=== PATIENT | female | born 1955 | race Caucasian/White ===

== ENCOUNTER 2016-08-08 16:11 | Emergency (ER) | payer MEDICAID ==
[~2016-08-08] VITALS: Ht 165.1 cm; Wt 125.0 kg
[~2016-08-08 16:11] MED LIST: ADVAI500I PO; ALBU8I INH; CEPH500C3 PO; CLAR10TA7 PO; DUONI NEB; HYDR12.56 PO; METO50TA PO; MONT4CHW2 CHEW; OXYB5TAB PO
[2016-08-08 16:13] VITALS: BP 147/89; PULSE 92; RESP 16; TEMP 99.2; O2SAT 94
[2016-08-08] MEDS ORDERED: SODIUM CHLOR 0.9% 1000 ML INJ 1,000 ML IV SCH (16:39)
--- NOTE | 2016-08-08 16:41 | PD ---
HPI Chief Complaint: Cold / Flu Symptoms Time Seen by Provider: 16:41 Travel History International Travel<30 days: No Contact w/Intl Traveler<30days: No Traveled to known affect area: No History of Present Illness HPI Patient is a 61-year-old female with a history of COPD from secondhand smoke who is a never smoker presenting with chief complaint of cough and ENT symptoms. Present for 36 hours. She states that he's had nasal congestion, sinus pressure, frontal headache, myalgias, sore throat and cough. Cough is nonproductive. She has had intermittent wheezing and has used inhalers which have helped. He denies any chest pain or pleuritic pain. She denies any pain or swelling in her legs. She states yesterday she had a fever of 103.6 F. Has responded to antipyretics. She states that she was urinating frequently as she was drinking a lot of fluid and so she purposely has received her fluids for the last 24 hours and has since developed dysuria or urinary frequency. Denies any hematuria, pyuria or vaginal bleeding or discharge. Denies abdominal, pelvic, back or flank pain. She denies nausea, vomiting and diarrhea. She did not receive influenza vaccine this year. PFSH Past Medical History Anemia: Yes (CHRONIC) Arthritis: Yes Asthma: Yes Autoimmune Disease: Yes (ARTHRITIS) Heart Rhythm Problems: No Cancer: Yes (doesn't remember what kind) Cardiovascular Problems: Yes (HTN) High Cholesterol: No Chest Pain: No Congestive Heart Failure: No COPD: Yes Cerebrovascular Accident: No Diminished Hearing: No Gastrointestinal Disorders: Yes GERD: No Genitourinary: Yes (PROLAPSED BLADDER) Headaches: Yes Hepatitis: No Hiatal Hernia: No Hypertension: Yes Neurologic: No Reproductive: Yes Respiratory: Yes (COPD) Immunizations Current: Yes Migraines: Yes Myocardial Infarction: No Seizures: No Sleep Apnea: No Ulcer: No ?: Not LMP: MENOPAUSAL Menopausal: Yes : 5 Para: 4 Miscarriage: 1 Ovarian Cysts: Yes Tubal Ligation: Yes (TUBAL LIGATION FOLLOWED BY REVERSAL) Past Surgical History Abdominal Surgery: Yes (LAPROSCOPY) AICD: No Ear Surgery: No Eye Surgery: No Gynecologic Surgery: Yes Oral Surgery: No Pacemaker: No Tonsillectomy: Yes (AND ADENOIDS) Other Surgery: Yes (NASAL) Social History Alcohol Use: No Tobacco Use: No Substance Use: No Allergies-Medications (Allergen,Severity, Reaction): Coded Allergies: [place] Tree (Verified Allergy, Severe, SOB, 08/08/16) Tetanus Toxoid (Verified Allergy, Severe, ANAPHYLAXIS, 08/08/16) Uncoded Allergies: OAT POLLEN (Allergy, Severe, SOB, 09/24/13) Reported Meds & Prescriptions Reported Meds & Active Scripts Active Proair Hfa 8.5 GM Inh (Albuterol Sulfate) 90 Mcg/Act Aer 2 Puff INH Q4-6H PRN 108 mcg/actuation Prednisone 20 Mg Tab 40 Mg PO DAILY 5 Days Tamiflu (Oseltamivir Phosphate) 75 Mg Cap 75 Mg PO BID 5 Days Cipro (Ciprofloxacin HCl) 500 Mg Tab 500 Mg PO BID Reported Lidocaine Patch 12 HR (Lidocaine) 5 % Patch 1 Patch TOPICAL DAILY Remove patch after 12 hours Imitrex (Sumatriptan Succinate) 25 Mg Tab 25 Mg PO ONCE PRN If a satisfactory response has not been obtained at 2 hours, a second dose may be administered Albuterol Neb (Albuterol Sulfate) 0.63 Mg/3 Ml Neb 0.63 Mg NEB Q4HR NEB PRN Advair Diskus Inh (Fluticasone-Salmeterol Inh) 100-50 Mcg/Blist Aer 1 Puff INH BID Rinse mouth after use. Proventil Hfa 6.7 GM Inh (Albuterol Sulfate) 90 Mcg/Act Aer 2 Puff INH Q4-6H PRN Meloxicam 7.5 Mg Tab 7.5 Mg PO DAILY Metoprolol Tartrate 25 Mg Tab 25 Mg PO BID Ditropan (Oxybutynin Chloride) 5 Mg Tab 5 Mg PO Q8HR Lortab (Hydrocodone-Acetaminophen) 10-325 Mg Tab 1 Tab PO TID PRN Review of Systems Except as stated in HPI: all other systems reviewed are Neg Physical Exam Narrative GENERAL: Well-developed and well-nourished adult female in no acute distress. SKIN: Warm and dry. Slightly reduced turgor without tenting. HEAD: Normocephalic and atraumatic. EYES: PERRL bilaterally, 5mm. EOMI bilaterally. No injection or icterus present. No proptosis. Lids without edema or erythema. ENT: Bilateral ear canals are non-edematous/non-erythematous without otorrhea. Bilateral TMs have intact landmarks and without distortion, perforation, air- fluid level or erythema. Nasal mucosa erythematous and edematous with clear discharge, septum intact and midline. Buccal mucosa pink and slightly dry. Oropharynx has mild erythema of the anterior tonsillar pilars without tonsillar hypertrophy, masses, swelling, asymmetry and exudates. Uvula midline and airway patent. NECK: Supple, no meningeal signs. Trachea midline, no JVD. No cervical or facial lymphadenopathy. CARDIOVASCULAR: Regular rate and rhythm without murmurs, rubs, clicks or gallops. Radial and posterior tibial pulses 2+ bilaterally. No pedal edema. Negative bilateral Homans sign. RESPIRATORY: Mild end expiratory wheezing and decreased breath sounds diffusely. No rhonchi or rales auscultated. No distress or use of accessory muscles. No stridor, tripoding or drooling. GASTROINTESTINAL: Non-tender, non-distended. Normal bowel sounds all 4 quadrants. No masses or organomegaly present. Negative bilateral CVA tenderness. MUSCULOSKELETAL: No gait disturbances. Patient freely moving all four extremities spontaneously. Extremities without clubbing, cyanosis, or edema. No obvious deformities. NEUROLOGIC: CN II-XII grossly intact. Awake and alert. Motor grossly within normal limits. Normal speech. PSYCHIATRIC: Appropriate mood and affect; insight and judgment normal. Data Data Last Documented VS Vital Signs Date Time Temp Pulse Resp B/P Pulse Ox O2 Delivery O2 Flow Rate FiO2 08/08/16 16:35 20 94 Room Air 08/08/16 16:13 99.2 92 147/89 Orders Complete Blood Count With Diff (08/08/16 16:39) Comprehensive Metabolic Panel (08/08/16 16:39) Urinalysis - C+S If Indicated (08/08/16 16:39) Sodium Chlor 0.9% 1000 Ml Inj (Ns 1000 M (08/08/16 16:39) Group A Rapid Strep Screen (08/08/16 16:39) Influenzae A/B Antigen (08/08/16 16:39) Chest, Single Ap (08/08/16 16:39) Methylprednisolone So Succ Inj (Solumedr (08/08/16 16:45) Albuterol-Ipratropium Neb (Duoneb Neb) (08/08/16 16:45) Strep Culture (Group A) (08/08/16 16:45) Urine Culture (08/08/16 17:44) Labs Laboratory Tests Test 08/08/16 08/08/16 16:50 17:44 White Blood Count 5.1 TH/MM3 Red Blood Count 4.90 MIL/MM3 Hemoglobin 13.8 GM/DL Hematocrit 41.9 % Mean Corpuscular Volume 85.5 FL Mean Corpuscular Hemoglobin 28.1 PG Mean Corpuscular Hemoglobin 32.8 % Concent Red Cell Distribution Width 12.9 % Platelet Count 187 TH/MM3 Mean Platelet Volume 7.9 FL Neutrophils (%) (Auto) 74.6 % Lymphocytes (%) (Auto) 14.1 % Monocytes (%) (Auto) 8.2 % Eosinophils (%) (Auto) 1.5 % Basophils (%) (Auto) 1.6 % Neutrophils # (Auto) 3.8 TH/MM3 Lymphocytes # (Auto) 0.7 TH/MM3 Monocytes # (Auto) 0.4 TH/MM3 Eosinophils # (Auto) 0.1 TH/MM3 Basophils # (Auto) 0.1 TH/MM3 CBC Comment DIFF FINAL Differential Comment Sodium Level 142 MEQ/L Potassium Level 3.6 MEQ/L Chloride Level 103 MEQ/L Carbon Dioxide Level 30.9 MEQ/L Anion Gap 8 MEQ/L Blood Urea Nitrogen 9 MG/DL Creatinine 0.64 MG/DL Estimat Glomerular Filtration 94 ML/MIN Rate Random Glucose 133 MG/DL Calcium Level 8.4 MG/DL Total Bilirubin 0.7 MG/DL Aspartate Amino Transf 16 U/L (AST/SGOT) Alanine Aminotransferase 29 U/L (ALT/SGPT) Alkaline Phosphatase 115 U/L Total Protein 6.6 GM/DL Albumin 3.4 GM/DL Urine Collection Type CLEAN CATCH Urine Color YELLOW Urine Turbidity SLIGHT Urine pH 6.0 Urine Specific [place] 1.012 Urine Protein NEG mg/dL Urine Glucose (UA) NEG mg/dL Urine Ketones NEG mg/dL Urine Occult Blood SMALL Urine Nitrite POS Urine Bilirubin NEG Urine Leukocyte Esterase LARGE Urine RBC 10-14 /hpf Urine WBC 50-99 /hpf Urine Squamous Epithelial > 8 /hpf Cells Urine Bacteria MANY /hpf Microscopic Urinalysis Comment CULTURE INDICATED Urine Collection Time 17:44 MDM Medical Decision Making Medical Screen Exam Complete: Yes Emergency Medical Condition: Yes Interpretation(s) Laboratory Tests Test 08/08/16 08/08/16 16:50 17:44 White Blood Count 5.1 TH/MM3 (4.0-11.0) Red Blood Count 4.90 MIL/MM3 (4.00-5.30) Hemoglobin 13.8 GM/DL (11.6-15.3) Hematocrit 41.9 % (35.0-46.0) Mean Corpuscular Volume 85.5 FL (80.0-100.0) Mean Corpuscular Hemoglobin 28.1 PG (27.0-34.0) Mean Corpuscular Hemoglobin 32.8 % Concent (32.0-36.0) Red Cell Distribution Width 12.9 % (11.6-17.2) Platelet Count 187 TH/MM3 (150-450) Mean Platelet Volume 7.9 FL (7.0-11.0) Neutrophils (%) (Auto) 74.6 % (16.0-70.0) Lymphocytes (%) (Auto) 14.1 % (9.0-44.0) Monocytes (%) (Auto) 8.2 % (0.0-8.0) Eosinophils (%) (Auto) 1.5 % (0.0-4.0) Basophils (%) (Auto) 1.6 % (0.0-2.0) Neutrophils # (Auto) 3.8 TH/MM3 (1.8-7.7) Lymphocytes # (Auto) 0.7 TH/MM3 (1.0-4.8) Monocytes # (Auto) 0.4 TH/MM3 (0-0.9) Eosinophils # (Auto) 0.1 TH/MM3 (0-0.4) Basophils # (Auto) 0.1 TH/MM3 (0-0.2) CBC Comment DIFF FINAL Differential Comment Sodium Level 142 MEQ/L (136-145) Potassium Level 3.6 MEQ/L (3.5-5.1) Chloride Level 103 MEQ/L (98-107) Carbon Dioxide Level 30.9 MEQ/L (21.0-32.0) Anion Gap 8 MEQ/L (5-15) Blood Urea Nitrogen 9 MG/DL (7-18) Creatinine 0.64 MG/DL (0.50-1.00) Estimat Glomerular Filtration 94 ML/MIN (>89) Rate Random Glucose 133 MG/DL (74-106) Calcium Level 8.4 MG/DL (8.5-10.1) Total Bilirubin 0.7 MG/DL (0.2-1.0) Aspartate Amino Transf 16 U/L (15-37) (AST/SGOT) Alanine Aminotransferase 29 U/L (10-53) (ALT/SGPT) Alkaline Phosphatase 115 U/L (45-117) Total Protein 6.6 GM/DL (6.4-8.2) Albumin 3.4 GM/DL (3.4-5.0) Urine Collection Type CLEAN CATCH Urine Color YELLOW (YELLW/STRAW) Urine Turbidity SLIGHT (CLEAR) Urine pH 6.0 (5.0-8.5) Urine Specific [place] 1.012 (1.002-1.035) Urine Protein NEG mg/dL (NEG-TRACE) Urine Glucose (UA) NEG mg/dL (NEG) Urine Ketones NEG mg/dL (NEG) Urine Occult Blood SMALL (NEG) Urine Nitrite POS (NEG) Urine Bilirubin NEG (NEG) Urine Leukocyte Esterase LARGE (NEG) Urine RBC 10-14 /hpf (0-3) Urine WBC 50-99 /hpf (0-5) Urine Squamous Epithelial > 8 /hpf (0-5) Cells Urine Bacteria MANY /hpf (NONE) Microscopic Urinalysis Comment CULTURE INDICATED Urine Collection Time 17:44 Last 24 hours Impressions Chest X-Ray 08/08/16 1639 Signed Impressions: Service Date/Time: Monday, August 08, 2016 17:10 - CONCLUSION: 1. No acute findings. Minimal basilar dependent atelectasis in the lungs. Bong Atkins MD Differential Diagnosis Influenza versus COPD exacerbation versus pneumonia versus bronchitis versus cystitis versus pyelonephritis Narrative Course Patient is a 59-year-old female with a history of COPD from secondhand smoke presenting with ENT/URI symptoms for approximately 36 hours. She has some slight wheezing and decreased breath sounds on exam. No rales auscultated. No increased work of breathing. She is currently afebrile and nontoxic appearing however does appear slightly volume depleted. She reports some urinary symptoms as well. No signs of pyelonephritis. Patient given 1 L normal saline bolus, Solu-Medrol and DuoNeb's. Ordered labs including urinalysis and chest x- ray. Rapid strep and flu negative. Chest x-ray shows minimal nasal or atelectasis, no acute cardio pulmonary process. CBC shows WBC of 5.1, mild neutrophilia without bands. Metabolic panel shows glucose 133, calcium 8.4. UA suggestive of cystitis given symptoms, shows positive for nitrites and leukocyte esterase, 10-14 rbc's. 50-99 WBCs, many bacteria. There are greater than 8 squamous epithelial cells. Treat with Cipro. Given other people in the household has tested positive for influenza A the patient did not receive vaccine will provide Tamiflu today as well as prednisone and albuterol inhaler for COPD exacerbation.See discharge paperwork for further instructions. The plan was discussed with the patient who acknowledged their understanding and agreement. Reinforced the follow-up with primary care is critically important. Patient instructed on emergent conditions that should prompt return to ED. Diagnosis Primary Impression: Viral syndrome Additional Impressions: COPD exacerbation Cystitis Hyperglycemia Patient Instructions: General Instructions, Hyperglycemia, Non-Diabetic (ED), Urinary Tract Infection in Women (ED), Viral Syndrome (ED) Additional Instructions: Take medication as prescribed OTC Mucinex, cough suppressants, and decongestants as needed OTC Tylenol or Ibuprofen for fever and discomfort Take medication as prescribed Drink plenty of fluids to stay hydrated and flush urinary system Call for culture results and follow up with PCP in 48 hours Return to the ED for any acute worsening of symptoms including fever, nausea, vomiting and abdominal pain Med/Other Pt SpecificInfo: Prescription(s) given Scripts Albuterol 8.5 GM Inh (Proair Hfa 8.5 GM Inh)90 Mcg/Act Aer2 Puff INH Q4-6H PRN ( SHORTNESS OF BREATH) #1 INHALER 108 mcg/actuation Prov:Rob Zepeda MD 08/08/16 Prednisone 20 Mg Tab40 Mg PO DAILY 5 Days Prov:Rob Zepeda MD 08/08/16 Oseltamivir (Tamiflu)75 Mg Cap75 Mg PO BID 5 Days Prov:Rob Zepeda MD 08/08/16 Ciprofloxacin (Cipro)500 Mg [id number] Mg PO BID #20 TAB Prov:Rob Zepeda MD 08/08/16 Disposition: 01 DISCHARGE HOME Condition: Stable Oswaldo Garcia III Aug 08, 2016 16:41
[2016-08-08] MEDS ORDERED: OXYB5TAB10 PO (16:44)
[2016-08-08] MEDS ORDERED: MELO7.5T4 PO (16:44)
[2016-08-08] MEDS ORDERED: ALBU0.63 NEB (16:44)
[2016-08-08] MEDS ORDERED: METO25TA3 PO (16:44)
[2016-08-08] MEDS ORDERED: ADVA100A INH (16:44)
[2016-08-08] MEDS ORDERED: LIDO1PAD52 TOPICAL (16:44)
[2016-08-08] MEDS ORDERED: ALBU6.7H INH (16:44)
[2016-08-08] MEDS ORDERED: IMIT25TA PO (16:44)
[2016-08-08] MEDS ORDERED: HYDR-3535 PO (16:44)
[2016-08-08] MEDS ORDERED: methylPREDNISolone SOD SUCC 125 MG/2 ML VIAL IVP ONE (16:45)
[2016-08-08 17:08] LABS: AUTOMATED NEUTROPHIL # 3.8 TH/MM3 (1.8-7.7); BASOPHIL # 0.1 TH/MM3 (0-0.2); BASOPHIL % 1.6 % (0.0-2.0); EOSINOPHIL # 0.1 TH/MM3 (0-0.4); EOSINOPHIL % 1.5 % (0.0-4.0); HEMATOCRIT 41.9 % (35.0-46.0); HEMO FLAGS DIFF FINAL; LYMPH % 14.1 % (9.0-44.0); LYMPHOCYTE # 0.7 TH/MM3 (1.0-4.8); MEAN CELL VOLUME 85.5 FL (80.0-100.0); MEAN CORPUSCULAR HEMOGLOBIN 28.1 PG (27.0-34.0); MEAN CORPUSCULAR HGB CONC 32.8 % (32.0-36.0); MONO % 8.2 % (0.0-8.0); NEUT % 74.6 % (16.0-70.0); PLATELET COUNT 187 TH/MM3 (150-450); RED CELL DISTRIBUTION WIDTH 12.9 % (11.6-17.2); WHITE BLOOD COUNT 5.1 TH/MM3 (4.0-11.0)
[2016-08-08 17:16] LABS: CHLORIDE 103 MEQ/L (98-107); POTASSIUM 3.6 MEQ/L (3.5-5.1); SODIUM (NA) 142 MEQ/L (136-145)
[2016-08-08] MEDS: RESP: ALBUTEROL 2.5 MG/IPRATROPIUM 0.5 MG NEB (SCH) INH (17:16)
[2016-08-08 17:20] LABS: ANION GAP 8 MEQ/L (5-15); BICARBONATE 30.9 MEQ/L (21.0-32.0); BLOOD UREA NITROGEN 9 MG/DL (7-18)
[2016-08-08 17:23] LABS: ALT (GPT) 29 U/L (10-53); AST (GOT) 16 U/L (15-37); GLOMERULAR FILTRATION RATE 94 ML/MIN (>89)
[2016-08-08 17:24] LABS: TOTAL BILIRUBIN ADULT 0.7 MG/DL (0.2-1.0)
[2016-08-08 17:26] LABS: ALKALINE PHOSPHATASE 115 U/L (45-117)
--- NOTE | 2016-08-08 17:49 | RADHPO ---
EXAM DATE/TIME: 08/08/2016 17:10 [facility] COMPARISON: CHEST SINGLE AP, October 20, 2014, 21:43. INDICATIONS : Cough and congestion for two days. MEDICAL HISTORY : Hypertension. Chronic obstructive pulmonary disease. SURGICAL HISTORY : None. ENCOUNTER: Initial ACUITY: 2 days PAIN SCORE: 2/10 LOCATION: Bilateral chest FINDINGS: A single view of the chest demonstrates the lungs to be symmetrically aerated without evidence of mas s, infiltrate or effusion. The cardiomediastinal contours are unremarkable. Osseous structures are intact. CONCLUSION: 1. No acute findings. Minimal basilar dependent atelectasis in the lungs. Bong Atkins MD on August 08, 2016 at 17:46 Board Certified Radiologist. This report was verified electronically.
[2016-08-08 17:56] LABS: BLOOD, URINE SMALL (NEG); GLUCOSE,URINE NEG (NEG); KETONE, URINE NEG (NEG)
[2016-08-08 17:58] LABS: NITRITE,URINE POS (NEG)
[2016-08-08 18:03] LABS: BACTERIA, URINE MANY /hpf; COMMENT (UR) CULTURE INDICATED; CULTURE IF INDICATED CULTURE INDICATED; METHOD OF COLLECTION CLEAN CATCH; SQUAMOUS EPITHELIAL CELL URINE > 8 /hpf (0-5); URINE COLOR YELLOW (YELLW/STRAW)
[2016-08-08] MEDS ORDERED: PRED20 PO (18:14)
[2016-08-08] MEDS ORDERED: CIPR-9 PO (18:14)
[2016-08-08] MEDS ORDERED: ALBUAER3 INH (18:14)
[2016-08-08] MEDS ORDERED: OSEL75 PO (18:14)
== END 2016-08-08 18:45 | disposition home or self-care (01) ==
LOC: PHEFT 16:11
DX: B34.9 Viral infection, unspecified (principal); J44.1 Chronic obstructive pulmonary disease with (acute) exacerbation; N30.91 Cystitis, unspecified with hematuria; R73.9 Hyperglycemia, unspecified; B96.20 Unspecified Escherichia coli [E. coli] as the cause of diseases classified elsewhere; M79.1 Myalgia; R50.9 Fever, unspecified; I10 Essential (primary) hypertension; Z86.2 Personal history of diseases of the blood and blood-forming organs and certain disorders involving the immune mechanism; Z87.39 Personal history of other diseases of the musculoskeletal system and connective tissue; Z87.09 Personal history of other diseases of the respiratory system; Z87.19 Personal history of other diseases of the digestive system; Z87.448 Personal history of other diseases of urinary system; Z86.69 Personal history of other diseases of the nervous system and sense organs
CPT/HCPCS: 71010; 80053; 81001; 85025; 87077; 87081; 87086; 87186; 87804; 87880; 94664; 96361; 96374; 99283; J2930; J7030

== ENCOUNTER 2016-09-21 22:43 | Emergency (ER) | payer MEDICAID ==
[~2016-09-21] VITALS: Ht 162.6 cm; Wt 124.0 kg
[~2016-09-21 22:43] MED LIST changes: +ADVA100A INH; -ADVAI500I PO; +ALBU0.63 NEB; +ALBU6.7H INH; -ALBU8I INH; +ALBUAER3 INH; -CEPH500C3 PO; +CIPR-9 PO; -CLAR10TA7 PO; -DUONI NEB; +HYDR-3535 PO; -HYDR12.56 PO; +IMIT25TA PO; +LIDO1PAD52 TOPICAL; +MELO7.5T4 PO; +METO25TA3 PO; -METO50TA PO; -MONT4CHW2 CHEW; +OSEL75 PO; -OXYB5TAB PO; +OXYB5TAB10 PO; +PRED20 PO
[2016-09-21 23:09] VITALS: BP 169/95; PULSE 88; RESP 20; TEMP 98.2; O2SAT 95
[2016-09-21 23:57] LABS: BLOOD, URINE NEG (NEG); GLUCOSE,URINE NEG (NEG); KETONE, URINE NEG (NEG)
[2016-09-22 00:02] LABS: MUCUS URINE MOD /lpf (OCC); NITRITE,URINE POS (NEG); URINE COLOR YELLOW (YELLW/STRAW)
[2016-09-22 00:03] LABS: BACTERIA, URINE MANY /hpf
[2016-09-22 00:04] LABS: COMMENT (UR) CULTURE INDICATED; CULTURE IF INDICATED CULTURE INDICATED
[2016-09-22 00:57] VITALS: BP 169/95; PULSE 88; RESP 20; TEMP 98.2; O2SAT 95
[2016-09-22] MEDS ORDERED: RESP: ALBUTEROL 2.5 MG/IPRATROPIUM 0.5 MG NEB (SCH) NEB ONE (02:00)
[2016-09-22 02:01] VITALS: BP 175/87; PULSE 86; RESP 18; O2SAT 95
[2016-09-22 02:59] VITALS: BP 157/69; PULSE 85; RESP 18; O2SAT 95
--- NOTE | 2016-09-22 03:13 | RADHPO ---
EXAM DATE/TIME: 09/22/2016 02:08 [facility] COMPARISON: No previous studies available for comparison. INDICATIONS : Short of breath. MEDICAL HISTORY : Hypertension. Chronic obstructive pulmonary disease. SURGICAL HISTORY : None. ENCOUNTER: Initial ACUITY: 3 days PAIN SCORE: 4/10 LOCATION: Bilateral upper chest FINDINGS: A single view of the chest demonstrates the lungs to be symmetrically aerated without evidence of mas s, infiltrate or effusion. The cardiomediastinal contours are unremarkable. Osseous structures are intact. CONCLUSION: 1. Mild basilar atelectasis. No effusion or pneumothorax. Bong Atkins MD on September 22, 2016 at 3:07 Board Certified Radiologist. This report was verified electronically.
[2016-09-22] MEDS ORDERED: ADVA500A INH (03:22)
[2016-09-22] MEDS ORDERED: LORA-361 PO ×2 (03:22→03:47)
[2016-09-22] MEDS ORDERED: ALBUAER3 INH (03:22)
[2016-09-22] MEDS ORDERED: BACT800T5 PO (03:22)
[2016-09-22] MEDS ORDERED: PHEN0.4T PO (03:22)
--- NOTE | 2016-09-22 03:23 | PD ---
HPI Chief Complaint: Respiratory Symptoms Time Seen by Provider: 01:51 Travel History International Travel<30 days: No Contact w/Intl Traveler<30days: No Traveled to known affect area: No History of Present Illness HPI 61 year-old female presents to the emergency department for complaint of urinary symptoms with dysuria frequency urgency without flank pain or hematuria and exacerbation of her COPD and medication refill. Patient reports that 2 or 3 days ago she had a fever but none today. Patient denies chills. No sore throat no headache no sinus pressure drainage reportedly. No chest pain. Patient has had shortness of breath. Patient has been out of her Advair. Patient states she has not been able to get into her primary care provider's office. Patient reports that she has had no pleuritic pain. No abdominal pain. Patient has noted dysuria frequency and urgency. Patient is also noted history of recurrent urinary tract infections and was recently seen in July for urinary tract infection but did not have follow-up with her primary. Patient also has had cough that intimately has been productive of green sputum. Patient denies diarrhea. No joint pain or swelling. No orthopnea or PND. PFSH Past Medical History Narrative Medical Anemia arthritis asthma/COPD recurrent urinary tract infections bladder prolapse hypertension migraines ovarian cyst tubal ligation; tonsillectomy adenoidectomy sinus surgery and laparoscopy; no tobacco use; nursing notes reviewed Anemia: Yes (Chronic) Arthritis: Yes (OA) Asthma: Yes Autoimmune Disease: Yes (ARTHRITIS) Heart Rhythm Problems: No Cancer: Yes Cardiovascular Problems: Yes High Cholesterol: No Chest Pain: No Congestive Heart Failure: No COPD: Yes Cerebrovascular Accident: No Diminished Hearing: No Gastrointestinal Disorders: Yes GERD: No Genitourinary: Yes (Bladder prolapse ) Headaches: Yes Hepatitis: No Hiatal Hernia: No Hypertension: Yes Neurologic: No Reproductive: Yes Respiratory: Yes Immunizations Current: Yes Migraines: Yes Myocardial Infarction: No Seizures: No Sleep Apnea: No Ulcer: No Tetanus Vaccination: Unknown Influenza Vaccination: Yes ?: Not Menopausal: Yes : 5 Para: 4 Miscarriage: 1 Ovarian Cysts: Yes Tubal Ligation: Yes (w/ reversal ) Past Surgical History Abdominal Surgery: Yes (Laproscopy ) AICD: No Ear Surgery: No Eye Surgery: No Gynecologic Surgery: Yes Oral Surgery: No Pacemaker: No Tonsillectomy: Yes (& adenoids) Other Surgery: Yes (Nose, sinus) Social History Alcohol Use: No Tobacco Use: No Substance Use: No Allergies-Medications (Allergen,Severity, Reaction): Coded Allergies: [place] Tree (Verified Allergy, Severe, SOB, 09/22/16) Tetanus Toxoid (Verified Allergy, Severe, ANAPHYLAXIS, 09/22/16) Uncoded Allergies: OAT POLLEN (Allergy, Severe, SOB, 09/24/13) Reported Meds & Prescriptions Reported Meds & Active Scripts Active Claritin (Loratadine) 10 Mg Tab 10 Mg PO DAILY Proair Hfa 8.5 GM Inh (Albuterol Sulfate) 90 Mcg/Act Aer 2 Puff INH Q4-6H PRN 108 mcg/actuation Pyridium (Phenazopyridine HCl) 100 Mg Tab 100 Mg PO Q8H PRN Bactrim DS (Sulfamethoxazole-Trimethoprim) 800-160 Mg Tab 1 Tab PO BID Advair Diskus Inh (Fluticasone-Salmeterol Inh) 500-50 Mcg/Blist Aer 1 Puff INH BID Rinse mouth after use. Reported Lidocaine Patch 12 HR (Lidocaine) 5 % Patch 1 Patch TOPICAL DAILY Remove patch after 12 hours Imitrex (Sumatriptan Succinate) 25 Mg Tab 25 Mg PO ONCE PRN If a satisfactory response has not been obtained at 2 hours, a second dose may be administered Albuterol Neb (Albuterol Sulfate) 0.63 Mg/3 Ml Neb 0.63 Mg NEB Q4HR NEB PRN Advair Diskus Inh (Fluticasone-Salmeterol Inh) 100-50 Mcg/Blist Aer 1 Puff INH BID Rinse mouth after use. Proventil Hfa 6.7 GM Inh (Albuterol Sulfate) 90 Mcg/Act Aer 2 Puff INH Q4-6H PRN Meloxicam 7.5 Mg Tab 7.5 Mg PO DAILY Metoprolol Tartrate 25 Mg Tab 25 Mg PO BID Ditropan (Oxybutynin Chloride) 5 Mg Tab 5 Mg PO Q8HR Lortab (Hydrocodone-Acetaminophen) 10-325 Mg Tab 1 Tab PO TID PRN Review of Systems Except as stated in HPI: all other systems reviewed are Neg Physical Exam Narrative GENERAL: Well-developed well-nourished female in no acute distress no respiratory distress SKIN: Warm and dry. HEAD: Normocephalic. EYES: No scleral icterus. No injection or drainage. NECK: Supple, trachea midline. No JVD or lymphadenopathy. CARDIOVASCULAR: Regular rate and rhythm without murmurs, gallops, or rubs. RESPIRATORY: Breath sounds equal bilaterally diminished few x-ray wheezes. No accessory muscle use. GASTROINTESTINAL: Abdomen soft, non-tender, nondistended. MUSCULOSKELETAL: No cyanosis, or edema. BACK: Nontender without obvious deformity. No CVA tenderness. Data Data Last Documented VS Vital Signs Date Time Temp Pulse Resp B/P Pulse Ox O2 Delivery O2 Flow Rate FiO2 09/22/16 02:59 85 18 95 Room Air 09/22/16 02:59 157/69 09/22/16 00:57 98.2 Orders Urinalysis - C+S If Indicated (09/21/16 23:44) Urine Culture (09/21/16 23:45) Chest, Single Ap (09/22/16 ) Albuterol-Ipratropium Neb (Duoneb Neb) (09/22/16 02:00) Sulfamet-Trimeth Ds 800-160 Mg (Bactrim (09/22/16 03:30) Labs Laboratory Tests Test 09/21/16 23:45 Urine Color YELLOW Urine Turbidity MOD Urine pH 6.0 Urine Specific [place] 1.016 Urine Protein TRACE mg/dL Urine Glucose (UA) NEG mg/dL Urine Ketones NEG mg/dL Urine Occult Blood NEG Urine Nitrite POS Urine Bilirubin NEG Urine Leukocyte Esterase MOD Urine RBC 4-9 /hpf Urine WBC 50-99 /hpf Urine Squamous Epithelial 6-8 /hpf Cells Urine Bacteria MANY /hpf Urine Mucus MOD /lpf Microscopic Urinalysis Comment CULTURE INDICATED MDM Medical Decision Making Medical Screen Exam Complete: Yes Emergency Medical Condition: Yes Medical Record Reviewed: Yes Interpretation(s) Urinalysis: Positive nitrites positive leukocyte Estrace positive white blood cells positive bacteria; culture indicated Last Impressions Chest X-Ray 09/22/16 0000 Signed Impressions: Service Date/Time: Thursday, September 22, 2016 02:08 - CONCLUSION: 1. Mild basilar atelectasis. No effusion or pneumothorax. Bong Atkins MD Differential Diagnosis Exacerbation COPD, CHF, pneumonia, ACS, UTI, pyelonephritis, medication refill Narrative Course Patient was here x-ray wheezes and diminished breath sounds out of her medication for history of COPD; patient given updraft treatment with DuoNeb and chest x-ray obtained also specimen collected for urine Urinalysis clearly abnormal and first dose of antibiotic administered in the emergency department Patient clinically improved after DuoNeb updraft Chest x-ray shows no lobar infiltrate Patient is stable for outpatient management and follow-up with her primary care provider; medications provided Diagnosis Primary Impression: COPD exacerbation Additional Impressions: UTI (urinary tract infection) Medication refill Referrals: Primary Care Physician call for appointment Patient Instructions: General Instructions Additional Instructions: Increase fluid hydration Take medications as prescribed Complete course of antibiotic Take acetaminophen/Tylenol as needed for fever 100.4F or greater per package directions Follow-up with your primary care provider; call your primary provider's office in a.m. to schedule appointment Return to the emergency department for any concerns or change in condition Med/Other Pt SpecificInfo: Prescription(s) given Scripts Loratadine (Claritin)10 Mg Tab10 Mg PO DAILY #30 TAB Ref 0 Prov:Lashae Ramos MD 09/22/16 Albuterol 8.5 GM Inh (Proair Hfa 8.5 GM Inh)90 Mcg/Act Aer2 Puff INH Q4-6H PRN ( SHORTNESS OF BREATH) #1 INHALER Ref 0 108 mcg/actuation Prov:Lashae Ramos MD 09/22/16 Phenazopyridine (Pyridium)100 Mg Hia060 Mg PO Q8H PRN (DYSURIA) #6 TAB Ref 0 Prov:Lashae Ramos MD 09/22/16 Sulfamethoxazole-Trimethoprim (Bactrim DS)800-160 Mg Tab1 Tab PO BID #20 TAB Ref 0 Prov:Lashae Ramos MD 09/22/16 Fluticasone-Salmeterol Inh (Advair Diskus Inh)500-50 Mcg/Blist Aer1 Puff INH BID #1 INHALER Ref 0 Rinse mouth after use. Prov:Lashae Ramos MD 09/22/16 Disposition: 01 DISCHARGE HOME Condition: Stable Lashae Ramos MD Sep 22, 2016 03:23
[2016-09-22] MEDS ORDERED: SULFAMETHOXAZOLE-TRIMETHOPRIM DS 800-160 MG TAB PO ONE (03:30)
== END 2016-09-22 04:07 | disposition home or self-care (01) ==
LOC: PHED 22:43
DX: J44.1 Chronic obstructive pulmonary disease with (acute) exacerbation (principal); N39.0 Urinary tract infection, site not specified; B96.20 Unspecified Escherichia coli [E. coli] as the cause of diseases classified elsewhere; I10 Essential (primary) hypertension; J45.909 Unspecified asthma, uncomplicated
CPT/HCPCS: 71010; 81001; 87077; 87086; 87186; 94664; 99283

== ENCOUNTER 2017-01-15 18:07 | Emergency (ER) | payer MEDICAID ==
[~2017-01-15 18:07] MED LIST changes: +ADVA500A INH; +BACT800T5 PO; -CIPR-9 PO; +LORA-361 PO; -OSEL75 PO; +PHEN0.4T PO; -PRED20 PO
[2017-01-15] MEDS ORDERED: CLAR10CA3 PO ×2 (18:38→19:10)
[2017-01-15] MEDS ORDERED: HYDR25TA5 PO (18:39)
--- NOTE | 2017-01-15 19:00 | PD ---
HPI Chief Complaint: ENT Complaint Time Seen by Provider: 18:26 Travel History International Travel<30 days: No Contact w/Intl Traveler<30days: No Traveled to known affect area: No History of Present Illness HPI 61 year-old woman presents to the emergency department complaining of some dizzy feeling some fullness in the left ear and some postnasal drip and congestion. She's been coughing a little bit. She also sore in her left foot. Sore the left foot started about 2 days ago and has had some spreading erythema and redness around it. History Past Medical History Narrative Medical Hypertension COPD asthma Possible history diabetes, been told her blood sugars high in the past but no formal diagnosis Tetanus Vaccination: > 5 Years Influenza Vaccination: No Menopausal: Yes : 5 Para: 4 Social History Alcohol Use: No Tobacco Use: No Allergies-Medications (Allergen,Severity, Reaction): Coded Allergies: [place] Tree (Verified Allergy, Severe, SOB, 09/22/16) Tetanus Toxoid (Verified Allergy, Severe, ANAPHYLAXIS, 09/22/16) Uncoded Allergies: OAT POLLEN (Allergy, Severe, SOB, 09/24/13) Reported Meds & Prescriptions Reported Meds & Active Scripts Active Proair Hfa 8.5 GM Inh (Albuterol Sulfate) 90 Mcg/Act Aer 2 Puff INH Q4-6H PRN 108 mcg/actuation Advair Diskus Inh (Fluticasone-Salmeterol Inh) 500-50 Mcg/Blist Aer 1 Puff INH BID Rinse mouth after use. Reported Hydrochlorothiazide 25 Mg Tab 25 Mg PO DAILY Claritin (Loratadine) 10 Mg Cap 10 Mg PO DAILY Lidocaine Patch 12 HR (Lidocaine) 5 % Patch 1 Patch TOPICAL DAILY Remove patch after 12 hours Albuterol Neb (Albuterol Sulfate) 0.63 Mg/3 Ml Neb 0.63 Mg NEB Q4HR NEB PRN Meloxicam 7.5 Mg Tab 7.5 Mg PO DAILY Metoprolol Tartrate 25 Mg Tab 25 Mg PO BID Ditropan (Oxybutynin Chloride) 5 Mg Tab 5 Mg PO Q8HR Lortab (Hydrocodone-Acetaminophen) 10-325 Mg Tab 1 Tab PO TID PRN Review of Systems Except as stated in HPI: all other systems reviewed are Neg Physical Exam Narrative GENERAL: Well-appearing 61 year-old woman, no acute distress. SKIN: Focused skin assessment warm/dry. HEAD: Atraumatic. Normocephalic. EYES: Pupils equal and round. No scleral icterus. No injection or drainage. ENT: No nasal bleeding or discharge. Mucous membranes pink and moist. Some dullness and retraction the left ear. TM Little bit of effusion. Some postnasal drip and cobblestoning in posterior oropharynx. NECK: Trachea midline. No JVD. CARDIOVASCULAR: Regular rate and rhythm. No murmur appreciated. RESPIRATORY: No accessory muscle use. Clear to auscultation. Breath sounds equal bilaterally. GASTROINTESTINAL: Abdomen soft, non-tender, nondistended. Hepatic and splenic margins not palpable. MUSCULOSKELETAL: No obvious deformities. There is a small wound on the left foot with surrounding erythema redness. MDM Medical Decision Making Medical Screen Exam Complete: Yes Emergency Medical Condition: Yes Differential Diagnosis Otitis media with effusion, sinusitis, foot infection, cellulitis, other Narrative Course 61 year-old woman here complaining of severe pain and rhinorrhea of fullness. She is here with her granddaughter is also a patient. She looks well. She does not look sick. She does have a little bit of fluid in her ear. She also has a small wound on her left foot that is minimally infected. We'll put her on some Keflex, recommend outpatient follow-up, recommend she continue her antihistamines. Diagnosis Primary Impression: Otitis media with effusion Additional Impression: Cellulitis of left foot Additional Instructions: Take antibiotics as prescribed. Continue Claritin daily. Follow-up with your primary doctor in the next 2-4 days. Med/Other Pt SpecificInfo: Prescription(s) given Scripts Loratadine (Claritin)10 Mg Cap10 Mg PO DAILY #30 CAP Ref 0 Prov:Mario Fairbanks MD 01/15/17 Disposition: 01 DISCHARGE HOME Condition: Stable Mario Fairbanks MD Jan 15, 2017 19:00
[2017-01-15] MEDS ORDERED: CEPH-460 PO (19:11)
[2017-01-15 19:24] VITALS: BP 144/86; PULSE 88; RESP 20; TEMP 98.3; O2SAT 97
== END 2017-01-15 19:44 | disposition home or self-care (01) ==
LOC: PHED 18:07
DX: H65.90 Unspecified nonsuppurative otitis media, unspecified ear (principal); L03.116 Cellulitis of left lower limb
CPT/HCPCS: 99283

== ENCOUNTER 2017-05-16 17:23 | Emergency (ER) | payer MEDICAID ==
[~2017-05-16 17:23] MED LIST changes: -ADVA100A INH; -ALBU6.7H INH; -BACT800T5 PO; +CEPH-460 PO; +CLAR10CA3 PO; +HYDR25TA5 PO; -IMIT25TA PO; -LORA-361 PO; +MELO7.5T27 PO; -MELO7.5T4 PO; -OXYB5TAB10 PO; +OXYB5TAB8 PO; -PHEN0.4T PO
[2017-05-16 17:34] VITALS: BP 194/90; PULSE 85; RESP 16; TEMP 97.5; O2SAT 96
[2017-05-16 17:49] LABS: BLOOD, URINE NEG (NEG); GLUCOSE,URINE NEG (NEG); KETONE, URINE NEG (NEG); NITRITE,URINE POS (NEG)
--- NOTE | 2017-05-16 17:51 | PD ---
HPI Chief Complaint: Complaint Time Seen by Provider: 17:40 Travel History International Travel<30 days: No Contact w/Intl Traveler<30days: No Traveled to known affect area: No History of Present Illness HPI The patient is a 62-year-old female presents to the emergency department for 2 days history of dysuria, frequency, and urgency. The patient states her symptoms started on Wednesday afternoon with mild burning upon urination. She also complains of frequency, urgency, suprapubic discomfort, small amount of blood in her urine. She also notes mild lower back pain, however, has a history of chronic back pain. She does complain of mild nausea, but denies any fever, chills, or sweats. She does have a history of UTI symptoms similar to this in the past. Symptoms are mild, possibly exacerbated by underlying UTI, there are no current alleviating factors. PFSH Past Medical History Anemia: Yes (Chronic) Arthritis: Yes (OA) Asthma: Yes Autoimmune Disease: Yes (ARTHRITIS) Heart Rhythm Problems: No Cancer: Yes Cardiovascular Problems: Yes High Cholesterol: No Chest Pain: No Congestive Heart Failure: No COPD: Yes Cerebrovascular Accident: No Diminished Hearing: No Gastrointestinal Disorders: Yes GERD: No Genitourinary: Yes (Bladder prolapse ) Headaches: Yes Hepatitis: No Hiatal Hernia: No Hypertension: Yes Neurologic: No Reproductive: Yes Respiratory: Yes Immunizations Current: Yes Migraines: Yes Myocardial Infarction: No Seizures: No Sleep Apnea: No Ulcer: No ?: Not Menopausal: Yes : 5 Para: 4 Miscarriage: 1 Ovarian Cysts: Yes Tubal Ligation: Yes (w/ reversal ) Past Surgical History Abdominal Surgery: Yes (Laproscopy ) AICD: No Ear Surgery: No Eye Surgery: No Gynecologic Surgery: Yes Oral Surgery: No Pacemaker: No Tonsillectomy: Yes (& adenoids) Other Surgery: Yes (Nose, sinus) Social History Alcohol Use: No Tobacco Use: No Substance Use: No Allergies-Medications (Allergen,Severity, Reaction): Coded Allergies: tetanus toxoid, adsorbed (Unverified Allergy, Severe, ANAPHYLAXIS, ) tree and shrub pollen (Unverified Allergy, Severe, SOB, 05/16/17) Uncoded Allergies: OAT POLLEN (Allergy, Severe, SOB, 09/24/13) Reported Meds & Prescriptions Reported Meds & Active Scripts Active Claritin (Loratadine) 10 Mg Cap 10 Mg PO DAILY Proair Hfa 8.5 GM Inh (Albuterol Sulfate) 90 Mcg/Act Aer 2 Puff INH Q4-6H PRN 108 mcg/actuation Advair Diskus Inh (Fluticasone-Salmeterol Inh) 500-50 Mcg/Blist Aer 1 Puff INH BID Rinse mouth after use. Reported Hydrochlorothiazide 25 Mg Tab 25 Mg PO DAILY Claritin (Loratadine) 10 Mg Cap 10 Mg PO DAILY Lidocaine Patch 12 HR (Lidocaine) 5 % Patch 1 Patch TOPICAL DAILY Remove patch after 12 hours Albuterol Neb (Albuterol Sulfate) 0.63 Mg/3 Ml Neb 0.63 Mg NEB Q4HR NEB PRN Meloxicam 7.5 Mg Tab 7.5 Mg PO DAILY Metoprolol Tartrate 25 Mg Tab 25 Mg PO BID Ditropan (Oxybutynin Chloride) 5 Mg Tab 5 Mg PO Q8HR Review of Systems Except as stated in HPI: all other systems reviewed are Neg General / Constitutional: No: Fever Gastrointestinal: Positive: Nausea, No: Vomiting, Abdominal Pain Genitourinary: Positive: Urgency, Frequency, Dysuria, Pelvic Pain (suprapubic discomfort) Physical Exam Narrative GENERAL: Awake, alert, pleasant 62-year-old female who appears her stated age and is in no acute respiratory distress. SKIN: Focused skin assessment warm/dry. HEAD: Atraumatic. Normocephalic. EYES: No injection or drainage. GASTROINTESTINAL: Abdomen soft, obese, mild suprapubic tenderness. Back: No CVA tenderness. MUSCULOSKELETAL: No obvious deformities. No clubbing. No cyanosis. No edema. NEUROLOGICAL: Awake and alert. No obvious cranial nerve deficits. Motor grossly within normal limits. Normal speech. PSYCHIATRIC: Appropriate mood and affect; insight and judgment normal. Data Data Last Documented VS Vital Signs Date Time Temp Pulse Resp B/P (MAP) Pulse Ox O2 Delivery O2 Flow Rate FiO2 05/16/17 17:34 97.5 85 16 194/90 (124) 96 Orders Orders Urinalysis - C+S If Indicated (05/16/17 17:40) Urine Culture (05/16/17 17:40) Labs Laboratory Tests Test 05/16/17 17:40 Urine Collection Type CLEAN CATCH Urine Color YELLOW Urine Turbidity SLIGHTY CLOUDY Urine pH 6.0 Urine Specific [place] 1.025 Urine Protein TRACE mg/dL Urine Glucose (UA) NEG mg/dL Urine Ketones NEG mg/dL Urine Occult Blood NEG Urine Nitrite POS Urine Bilirubin NEG Urine Leukocyte Esterase LARGE Urine RBC 0-3 /hpf Urine WBC 20-24 /hpf Urine Bacteria MANY /hpf Microscopic Urinalysis Comment CULTURE INDICATED MDM Medical Decision Making Medical Screen Exam Complete: Yes Emergency Medical Condition: Yes Medical Record Reviewed: Yes Interpretation(s) Laboratory Tests Test 05/16/17 17:40 Urine Collection Type CLEAN CATCH Urine Color YELLOW Urine Turbidity SLIGHTY CLOUDY Urine pH 6.0 Urine Specific [place] 1.025 Urine Protein TRACE mg/dL Urine Glucose (UA) NEG mg/dL Urine Ketones NEG mg/dL Urine Occult Blood NEG Urine Nitrite POS Urine Bilirubin NEG Urine Leukocyte Esterase LARGE Urine RBC 0-3 /hpf Urine WBC 20-24 /hpf Urine Bacteria MANY /hpf Microscopic Urinalysis Comment CULTURE INDICATED Differential Diagnosis differential diagnosis includes UTI, cystitis, hemorrhagic cystitis, pyelonephritis, yeast infection, nephrolithiasis. Narrative Course A UA was sent to lab. UA is positive for UTI with nitrites, leukocyte esterase , WBCs, and bacteria. The patient will be placed on Cipro and pirating them. She is advised to follow-up with her primary physician. Return if symptoms worsen or progress. Diagnosis Primary Impression: UTI (urinary tract infection) Qualified Codes: N30.00 - Acute cystitis without hematuria Patient Instructions: General Instructions Additional Instructions: Medications as directed. Follow-up with your primary physician. Please provide a patient a copy of her UA results at discharge. Return if symptoms worsen or progress. Med/Other Pt SpecificInfo: Prescription(s) given Scripts Phenazopyridine (Pyridium) 100 Mg Tab 100 MG PO Q8H Y for DYSURIA for 2 Days, #6 TAB 0 Refills Prov: Jermaine Hopper MD 05/16/17 Ciprofloxacin (Cipro) 500 Mg Tab 500 MG PO BID for Infection for 7 Days, #14 TAB 0 Refills Prov: Jermaine Hopper MD 05/16/17 Disposition: 01 DISCHARGE HOME Condition: Stable Jermaine Hopper MD May 16, 2017 17:51
[2017-05-16 17:55] LABS: METHOD OF COLLECTION CLEAN CATCH; URINE COLOR YELLOW (YELLW/STRAW)
[2017-05-16 17:56] LABS: BACTERIA, URINE MANY /hpf; COMMENT (UR) CULTURE INDICATED; CULTURE IF INDICATED CULTURE INDICATED; RBC, URINE 0-3 /hpf (0-3)
[2017-05-16] MEDS ORDERED: CIPR-9 PO (18:01)
[2017-05-16] MEDS ORDERED: PHEN0.4T PO (18:01)
== END 2017-05-16 18:33 | disposition home or self-care (01) ==
LOC: PHEFT 17:23
DX: N30.00 Acute cystitis without hematuria (principal); B96.20 Unspecified Escherichia coli [E. coli] as the cause of diseases classified elsewhere
CPT/HCPCS: 81001; 87077; 87086; 87186; 99284

== ENCOUNTER 2017-07-07 03:03 | Emergency (ER) | payer MEDICAID ==
[~2017-07-07] VITALS: Ht 165.1 cm; Wt 84.0 kg
[~2017-07-07 03:03] MED LIST changes: -CEPH-460 PO; +CIPR-9 PO; -HYDR-3535 PO; +PHEN0.4T PO
[2017-07-07 03:09] VITALS: BP_SYST 236; BP_SYST 243; BP_DIAS 105; BP_DIAS 116; PULSE 81; RESP 16; TEMP 98.1; O2SAT 97
[2017-07-07] MEDS ORDERED: METOPROLOL TARTRATE 50 MG TAB PO ONE (04:00)
[2017-07-07] MEDS ORDERED: PROCHLORPERAZINE INJ 10 MG/2 ML VIAL IV PUSH ONE (04:00)
[2017-07-07] MEDS ORDERED: diphenhydrAMINE HCL 50 MG/ML VIAL IV PUSH ONE (04:00)
[2017-07-07] MEDS ORDERED: KETOROLAC TROMETHAMINE 30 MG/ML (IVP) VIAL IV PUSH ONE (04:00)
[2017-07-07] MEDS ORDERED: HYDROCHLOROTHIAZIDE 12.5 MG CAP PO ONE (04:00)
[2017-07-07 04:24] LABS: AUTOMATED NEUTROPHIL # 4.3 TH/MM3 (1.8-7.7); BASOPHIL # 0.1 TH/MM3 (0-0.2); BASOPHIL % 1.1 % (0.0-2.0); EOSINOPHIL # 0.2 TH/MM3 (0-0.4); EOSINOPHIL % 2.3 % (0.0-4.0); HEMOGLOBIN 13.3 GM/DL (11.6-15.3); LYMPH % 32.6 % (9.0-44.0); LYMPHOCYTE # 2.4 TH/MM3 (1.0-4.8); MEAN CELL VOLUME 84.8 FL (80.0-100.0); MEAN CORPUSCULAR HEMOGLOBIN 28.3 PG (27.0-34.0); MEAN CORPUSCULAR HGB CONC 33.3 % (32.0-36.0); MONO % 5.9 % (0.0-8.0); MONOCYTE # 0.4 TH/MM3 (0-0.9); NEUT % 58.1 % (16.0-70.0); PLATELET COUNT 192 TH/MM3 (150-450); RED BLOOD COUNT 4.72 MIL/MM3 (4.00-5.30); RED CELL DISTRIBUTION WIDTH 13.9 % (11.6-17.2); WHITE BLOOD COUNT 7.4 TH/MM3 (4.0-11.0)
[2017-07-07 04:34] LABS: BACTERIA, URINE MOD /hpf; BILIRUBIN, URINE NEG (NEG); BLOOD, URINE NEG (NEG); GLUCOSE,URINE NEG (NEG); KETONE, URINE NEG (NEG); MUCUS URINE MOD /lpf (OCC); NITRITE,URINE POS (NEG); SQUAMOUS EPITHELIAL CELL URINE 13 /hpf (0-5); URINE COLOR YELLOW (YELLW/STRAW); URINE LEUKOCYTE ESTERASE LARGE (NEG)
[2017-07-07 04:46] LABS: ALBUMIN 3.4 GM/DL (3.4-5.0); ALT (GPT) 32 U/L (10-53); AST (GOT) 17 U/L (15-37); BICARBONATE 29.4 MEQ/L (21.0-32.0); BLOOD UREA NITROGEN 14 MG/DL (7-18); CALCIUM 8.8 MG/DL (8.5-10.1); CHLORIDE 104 MEQ/L (98-107); CREATININE 0.54 MG/DL (0.50-1.00); GLOMERULAR FILTRATION RATE 114 ML/MIN (>89); GLUCOSE,RANDOM 125 MG/DL (74-106); SODIUM (NA) 140 MEQ/L (136-145)
[2017-07-07 04:51] LABS: ALKALINE PHOSPHATASE 108 U/L (45-117); TOTAL BILIRUBIN ADULT 0.5 MG/DL (0.2-1.0); TOTAL PROTEIN 6.7 GM/DL (6.4-8.2); TROPONIN I LESS THAN 0.02 NG/ML (0.02-0.05)
[2017-07-07 05:06] VITALS: BP 144/66; PULSE 80; RESP 16; O2SAT 96
--- NOTE | 2017-07-07 05:10 | PD ---
HPI Chief Complaint: Complaint Time Seen by Provider: 03:37 Travel History International Travel<30 days: No Contact w/Intl Traveler<30days: No Traveled to known affect area: No History of Present Illness HPI Patient is a 62-year-old female who comes in complaining of headache for 3 days and frequency, urgency and dysuria for 3 days. She says she has been out of her blood pressure medication for about 3 weeks because her doctor has retired. She says that her head started hurting about 3 days ago, and she noticed her blood pressure was very high. She says she feels like she has a lot of pressure in her sinuses. She denies nausea or vomiting. She denies fever or chills. She says she has frequent UTIs, and has not had her oxybutynin. She took a Lortab without relief of her symptoms. She denies chest pain or shortness of breath. PFSH Past Medical History Anemia: Yes (Chronic) Arthritis: Yes (OA) Asthma: Yes Autoimmune Disease: Yes (ARTHRITIS) Heart Rhythm Problems: No Cancer: Yes Cardiovascular Problems: Yes (HTN) High Cholesterol: No Chest Pain: No Congestive Heart Failure: No COPD: Yes Cerebrovascular Accident: No Diminished Hearing: No Gastrointestinal Disorders: Yes GERD: No Genitourinary: Yes (Bladder prolapse ) Headaches: Yes Hepatitis: No Hiatal Hernia: No Hypertension: Yes Neurologic: No Reproductive: Yes Respiratory: Yes (COPD, Asthma) Immunizations Current: Yes Migraines: Yes Myocardial Infarction: No Seizures: No Sleep Apnea: No Ulcer: No Influenza Vaccination: No Menopausal: Yes : 5 Para: 4 Miscarriage: 1 Ovarian Cysts: Yes Tubal Ligation: Yes (w/ reversal ) Past Surgical History Abdominal Surgery: Yes (Laproscopy ) AICD: No Ear Surgery: No Eye Surgery: No Gynecologic Surgery: Yes Oral Surgery: No Pacemaker: No Tonsillectomy: Yes (& adenoids) Other Surgery: Yes (Nose, sinus) Social History Alcohol Use: No Tobacco Use: No Substance Use: No Allergies-Medications (Allergen,Severity, Reaction): Coded Allergies: tetanus toxoid, adsorbed (Unverified Allergy, Severe, ANAPHYLAXIS, ) tree and shrub pollen (Unverified Allergy, Severe, SOB, 05/16/17) Uncoded Allergies: OAT POLLEN (Allergy, Severe, SOB, 09/24/13) Reported Meds & Prescriptions Reported Meds & Active Scripts Active Pyridium (Phenazopyridine HCl) 100 Mg Tab 100 Mg PO Q8H PRN 2 Days Cipro (Ciprofloxacin HCl) 500 Mg Tab 500 Mg PO BID 7 Days Claritin (Loratadine) 10 Mg Cap 10 Mg PO DAILY Proair Hfa 8.5 GM Inh (Albuterol Sulfate) 90 Mcg/Act Aer 2 Puff INH Q4-6H PRN 108 mcg/actuation Advair Diskus Inh (Fluticasone-Salmeterol Inh) 500-50 Mcg/Blist Aer 1 Puff INH BID Rinse mouth after use. Reported Hydrochlorothiazide 25 Mg Tab 25 Mg PO DAILY Claritin (Loratadine) 10 Mg Cap 10 Mg PO DAILY Lidocaine Patch 12 HR (Lidocaine) 5 % Patch 1 Patch TOPICAL DAILY Remove patch after 12 hours Albuterol Neb (Albuterol Sulfate) 0.63 Mg/3 Ml Neb 0.63 Mg NEB Q4HR NEB PRN Meloxicam 7.5 Mg Tab 7.5 Mg PO DAILY Metoprolol Tartrate 25 Mg Tab 25 Mg PO BID Ditropan (Oxybutynin Chloride) 5 Mg Tab 5 Mg PO Q8HR Review of Systems Except as stated in HPI: all other systems reviewed are Neg General / Constitutional: No: Fever, Chills Eyes: No: Blurred Vision HENT: Positive: Headaches, No: Lightheadedness Cardiovascular: No: Chest Pain or Discomfort Respiratory: No: Shortness of Breath Gastrointestinal: No: Nausea, Vomiting Genitourinary: Positive: Dysuria Musculoskeletal: No: Myalgias, Weakness Skin: No Rash, No Change in Pigmentation Neurologic: No: Weakness, Dizziness Physical Exam Narrative GENERAL: Awake and alert, in no acute distress. SKIN: Focused skin assessment warm/dry. HEAD: Atraumatic. Normocephalic. EYES: Pupils equal and round. No scleral icterus. EOMI. ENT: Mucous membranes pink and moist. NECK: Trachea midline. No JVD. CARDIOVASCULAR: Regular rate and rhythm. No murmur appreciated. RESPIRATORY: No accessory muscle use. Clear to auscultation. Breath sounds equal bilaterally. GASTROINTESTINAL: Abdomen soft, nondistended. Suprapubic tenderness to palpation , no rebound or guarding. MUSCULOSKELETAL: No obvious deformities. No clubbing. No cyanosis. No edema. NEUROLOGICAL: Awake and alert. No obvious cranial nerve deficits. Motor grossly within normal limits. Normal speech. PSYCHIATRIC: Appropriate mood and affect; insight and judgment normal. Data Data Last Documented VS Vital Signs Date Time Temp Pulse Resp B/P (MAP) Pulse Ox O2 Delivery O2 Flow Rate FiO2 07/07/17 05:06 80 16 144/66 (92) 96 Room Air 07/07/17 03:09 98.1 Orders Orders Iv Access Insert/Monitor (07/07/17 03:59) Complete Blood Count With Diff (07/07/17 03:59) Comprehensive Metabolic Panel (07/07/17 03:59) Troponin I (07/07/17 03:59) Electrocardiogram (07/07/17 ) Urinalysis - C+S If Indicated (07/07/17 03:59) Metoprolol Tartrate (Lopressor) (07/07/17 04:00) Hydrochlorothiazide (Microzide) (07/07/17 04:00) Prochlorperazine Inj (Compazine Inj) (07/07/17 04:00) Diphenhydramine Inj (Benadryl Inj) (07/07/17 04:00) Ketorolac Inj (Toradol Inj) (07/07/17 04:00) Urine Culture (07/07/17 04:15) Labs Laboratory Tests Test 07/07/17 04:15 White Blood Count 7.4 TH/MM3 Red Blood Count 4.72 MIL/MM3 Hemoglobin 13.3 GM/DL Hematocrit 40.0 % Mean Corpuscular Volume 84.8 FL Mean Corpuscular Hemoglobin 28.3 PG Mean Corpuscular Hemoglobin Concent 33.3 % Red Cell Distribution Width 13.9 % Platelet Count 192 TH/MM3 Mean Platelet Volume 8.0 FL Neutrophils (%) (Auto) 58.1 % Lymphocytes (%) (Auto) 32.6 % Monocytes (%) (Auto) 5.9 % Eosinophils (%) (Auto) 2.3 % Basophils (%) (Auto) 1.1 % Neutrophils # (Auto) 4.3 TH/MM3 Lymphocytes # (Auto) 2.4 TH/MM3 Monocytes # (Auto) 0.4 TH/MM3 Eosinophils # (Auto) 0.2 TH/MM3 Basophils # (Auto) 0.1 TH/MM3 CBC Comment DIFF FINAL Differential Comment Urine Color YELLOW Urine Turbidity HAZY Urine pH 6.0 Urine Specific [place] 1.020 Urine Protein TRACE mg/dL Urine Glucose (UA) NEG mg/dL Urine Ketones NEG mg/dL Urine Occult Blood NEG Urine Nitrite POS Urine Bilirubin NEG Urine Urobilinogen LESS THAN 2.0 MG/DL Urine Leukocyte Esterase LARGE Urine RBC 7 /hpf Urine WBC 94 /hpf Urine Squamous Epithelial Cells 13 /hpf Urine Bacteria MOD /hpf Urine Mucus MOD /lpf Microscopic Urinalysis Comment CULTURE INDICATED Blood Urea Nitrogen 14 MG/DL Creatinine 0.54 MG/DL Random Glucose 125 MG/DL Total Protein 6.7 GM/DL Albumin 3.4 GM/DL Calcium Level 8.8 MG/DL Alkaline Phosphatase 108 U/L Aspartate Amino Transf (AST/SGOT) 17 U/L Alanine Aminotransferase (ALT/SGPT) 32 U/L Total Bilirubin 0.5 MG/DL Sodium Level 140 MEQ/L Potassium Level 3.9 MEQ/L Chloride Level 104 MEQ/L Carbon Dioxide Level 29.4 MEQ/L Anion Gap 7 MEQ/L Estimat Glomerular Filtration Rate 114 ML/MIN Troponin I LESS THAN 0.02 NG/ML [facility] Medical Decision Making Medical Screen Exam Complete: Yes Emergency Medical Condition: Yes Medical Record Reviewed: Yes Interpretation(s) ECG shows normal sinus rhythm at 75, no ST elevation or depression, normal intervals Differential Diagnosis UTI vs HTN vs tension headache vs medication refill Narrative Course Patient is a 62-year-old female who comes in complaining of headache and symptoms of a UTI. Exam shows no neurologic abnormalities. IV established, labs sent. Labs show no acute abnormalities. Urinalysis is positive for UTI. Patient was given her blood pressure medication as well as Compazine, Benadryl and Toradol for her headache. She reports resolution of her symptoms. Her blood pressure improved. She'll be discharged with prescriptions for her metoprolol, HCTZ, oxybutynin, as well as an antibiotic for her UTI. She is advised to follow-up with a primary care doctor or the [facility]. Advised to return any time for any worsening symptoms. Diagnosis Primary Impression: Medication refill Additional Impressions: UTI (urinary tract infection) Qualified Codes: N30.00 - Acute cystitis without hematuria HTN (hypertension) Qualified Codes: I10 - Essential (primary) hypertension Headache Qualified Codes: R51 - Headache Referrals: [facility] call for appointment Patient Instructions: General Instructions, Hypertension (ED), Urinary Tract Infection in Women (ED) Additional Instructions: Take all of your antibiotic. Follow-up with a primary care doctor. Return to the ED as needed for any worsening symptoms. Scripts Ciprofloxacin (Cipro) 500 Mg Tab 500 MG PO BID for Infection for 5 Days, #10 TAB 0 Refills Prov: Carole Seth MD 07/07/17 Hydrochlorothiazide (Hydrochlorothiazide) 12.5 Mg Cap 12.5 MG PO DAILY, #30 CAP 0 Refills Prov: Carole Seth MD 07/07/17 Oxybutynin (Ditropan) 5 Mg Tab 5 MG PO Q12HR for Urinary Symptom [place], #60 TAB 0 Refills Prov: Carole Seth MD 07/07/17 Metoprolol Tartrate (Metoprolol Tartrate) 25 Mg Tab 25 MG PO BID, #60 TAB 0 Refills Prov: Carole Seth MD 07/07/17 Disposition: 01 DISCHARGE HOME Condition: Stable Carole Seth MD Jul 07, 2017 05:10
[2017-07-07] MEDS ORDERED: HYDR12.57 PO (05:51)
[2017-07-07] MEDS ORDERED: METO25TA3 PO (05:51)
[2017-07-07] MEDS ORDERED: CIPR-9 PO (05:51)
[2017-07-07] MEDS ORDERED: OXYB5TAB8 PO (05:51)
--- NOTE | 2017-07-07 21:12 | EKG ---
Date Performed: 07/07/2017 Time Performed: 05:41:43 PTAGE: 62 years EKG: Sinus rhythm NORMAL ECG PREVIOUS TRACING : 10/20/2014 22.08 Compared to prior tracing no significant change DOCTOR: Salazar Hernandez Interpretating Date/Time 07/07/2017 21:12:09
== END 2017-07-07 06:07 | disposition home or self-care (01) ==
LOC: NEPC 03:03
DX: N39.0 Urinary tract infection, site not specified (principal); B96.20 Unspecified Escherichia coli [E. coli] as the cause of diseases classified elsewhere; I10 Essential (primary) hypertension; R51 Headache; Z76.0 Encounter for issue of repeat prescription
CPT/HCPCS: 80053; 81001; 84484; 85025; 87077; 87086; 87186; 93005; 96374; 96375; 99284; J0780; J1200; J1885

== ENCOUNTER 2017-09-18 15:32 | Inpatient (IN) | payer MEDICAID ==
[2017-09-18] VITALS (8 sets, daily range): BP systolic 112–126; BP diastolic 50–85; PULSE 90–97; RESP 18–22; TEMP 98.5–99.1; O2SAT 89–97
[~2017-09-18 15:32] MED LIST changes: +HYDR12.57 PO
--- NOTE | 2017-09-18 15:58 | PD ---
HPI Chief Complaint: Respiratory Distress Time Seen by Provider: 15:43 Travel History International Travel<30 days: No Contact w/Intl Traveler<30days: No Traveled to known affect area: No History of Present Illness HPI 62yo F with PMH of COPD not yet on home O2, HTN here with c/o sob and coughing for a few days. Said fever of 103F yesterday. Feels like her right lung hurts. Denies any chest pain, n/v, abdominal pain. PFSH Past Medical History Anemia: Yes (Chronic) Arthritis: Yes (OA) Asthma: Yes Autoimmune Disease: Yes (ARTHRITIS) Heart Rhythm Problems: No Cancer: Yes Cardiovascular Problems: Yes (HTN) High Cholesterol: No Chest Pain: No Congestive Heart Failure: No COPD: Yes Cerebrovascular Accident: No Diminished Hearing: No Gastrointestinal Disorders: Yes GERD: No Genitourinary: Yes (Bladder prolapse ) Headaches: Yes Hepatitis: No Hiatal Hernia: No Hypertension: Yes Neurologic: No Reproductive: Yes Respiratory: Yes (COPD, Asthma) Immunizations Current: Yes Migraines: Yes Myocardial Infarction: No Seizures: No Sleep Apnea: No Ulcer: No ?: Not Menopausal: Yes : 5 Para: 4 Miscarriage: 1 Ovarian Cysts: Yes Tubal Ligation: Yes (w/ reversal ) Past Surgical History Abdominal Surgery: Yes (Laproscopy ) AICD: No Ear Surgery: No Eye Surgery: No Gynecologic Surgery: Yes Oral Surgery: No Pacemaker: No Tonsillectomy: Yes (& adenoids) Other Surgery: Yes (Nose, sinus) Social History Alcohol Use: No Tobacco Use: No Substance Use: No Allergies-Medications (Allergen,Severity, Reaction): Coded Allergies: tetanus toxoid, adsorbed (Unverified Allergy, Severe, ANAPHYLAXIS, ) tree and shrub pollen (Unverified Allergy, Severe, SOB, 05/16/17) Uncoded Allergies: OAT POLLEN (Allergy, Severe, SOB, 09/24/13) Reported Meds & Prescriptions Reported Meds & Active Scripts Active Ditropan (Oxybutynin Chloride) 5 Mg Tab 5 Mg PO Q12HR Proair Hfa 8.5 GM Inh (Albuterol Sulfate) 90 Mcg/Act Aer 2 Puff INH Q4-6H PRN 108 mcg/actuation Advair Diskus Inh (Fluticasone-Salmeterol Inh) 500-50 Mcg/Blist Aer 1 Puff INH BID Rinse mouth after use. Reported Hydrochlorothiazide 25 Mg Tab 25 Mg PO DAILY Claritin (Loratadine) 10 Mg Cap 10 Mg PO DAILY Lidocaine Patch 12 HR (Lidocaine) 5 % Patch 1 Patch TOPICAL DAILY Remove patch after 12 hours Albuterol Neb (Albuterol Sulfate) 0.63 Mg/3 Ml Neb 0.63 Mg NEB Q4HR NEB PRN Meloxicam 7.5 Mg Tab 7.5 Mg PO DAILY Ditropan (Oxybutynin Chloride) 5 Mg Tab 5 Mg PO Q8HR Review of Systems Except as stated in HPI: all other systems reviewed are Neg Physical Exam Narrative GENERAL: 62yo F in mild distress SKIN: Focused skin assessment warm/dry. HEAD: Atraumatic. Normocephalic. EYES: Pupils equal and round. No scleral icterus. No injection or drainage. ENT: No nasal bleeding or discharge. Mucous membranes pink and moist. NECK: Trachea midline. No JVD. CARDIOVASCULAR: Regular rate and rhythm. No murmur appreciated. RESPIRATORY: + accessory muscle use. Expiratory wheezing bilaterally. GASTROINTESTINAL: Abdomen soft, non-tender, nondistended. Hepatic and splenic margins not palpable. MUSCULOSKELETAL: No obvious deformities. No clubbing. No cyanosis. No edema. NEUROLOGICAL: Awake and alert. No obvious cranial nerve deficits. Motor grossly within normal limits. Normal speech. PSYCHIATRIC: Appropriate mood and affect; insight and judgment normal. Data Data Last Documented VS Vital Signs Date Time Temp Pulse Resp B/P (MAP) Pulse Ox O2 Delivery O2 Flow Rate FiO2 09/18/17 17:19 97 22 119/69 (86) 96 Nasal Cannula 3.00 09/18/17 16:27 98.6 Orders Orders Complete Blood Count With Diff (09/18/17 15:56) Basic Metabolic Panel (Bmp) (09/18/17 15:56) Troponin I (09/18/17 15:56) Influenzae A/B Antigen (09/18/17 15:56) Chest, Single Ap (09/18/17 15:56) Methylprednisolone So Succ Inj (Solumedr (09/18/17 16:00) Albuterol-Ipratropium Neb (Duoneb Neb) (09/18/17 16:00) Blood Culture (09/18/17 17:49) Lactic Acid Sepsis Protocol (09/18/17 17:49) Ceftriaxone Inj (Rocephin Inj) (09/18/17 18:00) Azithromycin (Zithromax) (09/18/17 18:00) Sodium Chlor 0.9% 1000 Ml Inj (Ns 1000 M (09/18/17 18:00) Labs Laboratory Tests Test 09/18/17 16:15 White Blood Count 18.3 TH/MM3 Red Blood Count 4.90 MIL/MM3 Hemoglobin 13.4 GM/DL Hematocrit 40.3 % Mean Corpuscular Volume 82.3 FL Mean Corpuscular Hemoglobin 27.4 PG Mean Corpuscular Hemoglobin Concent 33.3 % Red Cell Distribution Width 14.1 % Platelet Count 169 TH/MM3 Mean Platelet Volume 8.2 FL Neutrophils (%) (Auto) 87.3 % Lymphocytes (%) (Auto) 5.6 % Monocytes (%) (Auto) 6.7 % Eosinophils (%) (Auto) 0.0 % Basophils (%) (Auto) 0.4 % Neutrophils # (Auto) 16.0 TH/MM3 Lymphocytes # (Auto) 1.0 TH/MM3 Monocytes # (Auto) 1.2 TH/MM3 Eosinophils # (Auto) 0.0 TH/MM3 Basophils # (Auto) 0.1 TH/MM3 CBC Comment DIFF FINAL Differential Comment Blood Urea Nitrogen 13 MG/DL Creatinine 0.86 MG/DL Random Glucose 203 MG/DL Calcium Level 8.0 MG/DL Sodium Level 135 MEQ/L Potassium Level 3.6 MEQ/L Chloride Level 99 MEQ/L Carbon Dioxide Level 26.8 MEQ/L Anion Gap 9 MEQ/L Estimat Glomerular Filtration Rate 67 ML/MIN Troponin I LESS THAN 0.02 NG/ML [facility] Medical Decision Making Medical Screen Exam Complete: Yes Emergency Medical Condition: Yes Interpretation(s) EKG: NSR 87bpm. Normal axis. No ST segment elevation or depression. Differential Diagnosis COPD exacerbation vs. Pneumonia vs. URI vs. bronchitis Narrative Course 62yo F with c/o SOB, cough and fever. Pt is wheezing bilaterally and initially hypoxic in the high 80s. Pt given methylprednisolone and duonebs x3. Pt reevaluated at bedside and feels better but still wheezing bilaterally. O2 sat is 97% on 3L NC. Labs reviewed, leukocytosis at 18,300. H/H normal. Glucose elevated at 203. Troponin negative. CXR showed consolidation right upper lobe. Blood cultures and lactic added before pt covered with ceftriaxone and azithromycin. Pt has not been hospitalized for last 3 months. Pt also given NS IVF. Discussed with Dr. Phoenix and accepted to her service. Sepsis Criteria SIRS Criteria (2 or more): Heart rate over 90, RR > 20 or PaCO2 < 32, WBC > 11542, < 4000 or > 10% bands Sepsis Criteria (SIRS+source): Infect source susp/known Diagnosis Primary Impression: Pneumonia Qualified Codes: J18.1 - Lobar pneumonia, unspecified organism Admitting Information Admitting Physician Requests: Admit Mickie Scanlon DO Sep 18, 2017 15:58
[2017-09-18] MEDS ORDERED: methylPREDNISolone SOD SUCC 125 MG/2 ML VIAL IV PUSH ONE (16:00)
[2017-09-18] MEDS: RESP: ALBUTEROL 2.5 MG/IPRATROPIUM 0.5 MG NEB (SCH) INH ×4 (16:14→20:58)
[2017-09-18 16:35] LABS: BASOPHIL # 0.1 TH/MM3 (0-0.2); BASOPHIL % 0.4 % (0.0-2.0); HEMATOCRIT 40.3 % (35.0-46.0); HEMOGLOBIN 13.4 GM/DL (11.6-15.3); LYMPH % 5.6 % (9.0-44.0); MEAN CELL VOLUME 82.3 FL (80.0-100.0); MEAN CORPUSCULAR HEMOGLOBIN 27.4 PG (27.0-34.0); MEAN CORPUSCULAR HGB CONC 33.3 % (32.0-36.0); MEAN PLATELET VOLUME 8.2 FL (7.0-11.0); MONO % 6.7 % (0.0-8.0); MONOCYTE # 1.2 TH/MM3 (0-0.9); NEUT % 87.3 % (16.0-70.0); PLATELET COUNT 169 TH/MM3 (150-450); RED CELL DISTRIBUTION WIDTH 14.1 % (11.6-17.2); WHITE BLOOD COUNT 18.3 TH/MM3 (4.0-11.0)
[2017-09-18 16:39] LABS: CHLORIDE 99 MEQ/L (98-107); SODIUM (NA) 135 MEQ/L (136-145)
[2017-09-18 16:42] LABS: BICARBONATE 26.8 MEQ/L (21.0-32.0); BLOOD UREA NITROGEN 13 MG/DL (7-18); GLUCOSE,RANDOM 203 MG/DL (74-106)
[2017-09-18 16:45] LABS: CREATININE 0.86 MG/DL (0.50-1.00); GLOMERULAR FILTRATION RATE 67 ML/MIN (>89)
[2017-09-18 16:50] LABS: TROPONIN I LESS THAN 0.02 NG/ML (0.02-0.05)
--- NOTE | 2017-09-18 17:00 | RADRPT ---
EXAM DATE/TIME: 09/18/2017 16:05 [facility] COMPARISON: CHEST SINGLE AP, September 22, 2016, 2:08. INDICATIONS : Short of breath, cough, chest pain MEDICAL HISTORY : Chronic obstructive pulmonary disease. Hypertension SURGICAL HISTORY : None. ENCOUNTER: Initial ACUITY: 1 week PAIN SCORE: 10/10 LOCATION: Bilateral chest FINDINGS: Consolidation changes right upper lobe. Left lung clear. Mild cardiomegaly. The portion of the bon y skeleton visualized is unremarkable. CONCLUSION: Consolidation right upper lobe. Rip Soto MD FACR on September 18, 2017 at 16:56 Board Certified Radiologist. This report was verified electronically.
[2017-09-18] MEDS ORDERED: AZITHROMYCIN 250 MG TAB PO ONE (18:00)
[2017-09-18] MEDS ORDERED: cefTRIAXone INJ 1,000 MG in SODIUM CHLORIDE 0.9% INJ 100 ML IV ONE (18:00)
[2017-09-18] MEDS ORDERED: SODIUM CHLOR 0.9% 1000 ML INJ 1,000 ML IV ONE (18:00)
[2017-09-18] MEDS ORDERED: RESP: ALBUTEROL 2.5 MG/IPRATROPIUM 0.5 MG NEB (PRN) INH (18:15)
[2017-09-18] MEDS ORDERED: SODIUM CHLORIDE 0.9% FLUSH 10 ML FLUSH IV FLUSH PRN (18:15)
[2017-09-18] MEDS: SODIUM CHLOR 0.9% 1000 ML INJ 1,000 ML IV SCH (19:43)
[2017-09-18] MEDS: SODIUM CHLORIDE 0.9% FLUSH 10 ML FLUSH IV FLUSH SCH (21:00)
[2017-09-18] MEDS: methylPREDNISolone SOD SUCC 40 MG/1 ML VIAL IV PUSH SCH (22:26)
[2017-09-19] VITALS (7 sets, daily range): BP systolic 133–170; BP diastolic 63–95; PULSE 88–101; RESP 18–20; TEMP 97.1–98.6; O2SAT 92–98
[2017-09-19] MEDS: RESP: ALBUTEROL 2.5 MG/IPRATROPIUM 0.5 MG NEB (SCH) INH ×4 (04:06→21:40)
[2017-09-19] MEDS: SODIUM CHLOR 0.9% 1000 ML INJ 1,000 ML IV SCH ×2 (05:00→13:22)
[2017-09-19] MEDS: methylPREDNISolone SOD SUCC 40 MG/1 ML VIAL IV PUSH SCH ×3 (05:00→21:11)
[2017-09-19 07:33] LABS: AUTOMATED NEUTROPHIL # 16.9 TH/MM3 (1.8-7.7); BASOPHIL # 0.1 TH/MM3 (0-0.2); BASOPHIL % 0.4 % (0.0-2.0); EOSINOPHIL % 0.1 % (0.0-4.0); HEMATOCRIT 36.4 % (35.0-46.0); HEMOGLOBIN 12.6 GM/DL (11.6-15.3); LYMPH % 4.4 % (9.0-44.0); LYMPHOCYTE # 0.8 TH/MM3 (1.0-4.8); MEAN CELL VOLUME 83.4 FL (80.0-100.0); MEAN CORPUSCULAR HEMOGLOBIN 28.9 PG (27.0-34.0); MEAN CORPUSCULAR HGB CONC 34.6 % (32.0-36.0); MEAN PLATELET VOLUME 8.6 FL (7.0-11.0); MONO % 0.9 % (0.0-8.0); MONOCYTE # 0.2 TH/MM3 (0-0.9); NEUT % 94.2 % (16.0-70.0); PLATELET COUNT 168 TH/MM3 (150-450); RED BLOOD COUNT 4.37 MIL/MM3 (4.00-5.30); RED CELL DISTRIBUTION WIDTH 14.7 % (11.6-17.2)
[2017-09-19 07:47] LABS: BICARBONATE 23.4 MEQ/L (21.0-32.0); CALCIUM 8.2 MG/DL (8.5-10.1)
[2017-09-19 07:57] LABS: CREATININE 0.76 MG/DL (0.50-1.00)
[2017-09-19] MEDS: SODIUM CHLORIDE 0.9% FLUSH 10 ML FLUSH IV FLUSH SCH ×2 (08:07→21:12)
[2017-09-19] MEDS ORDERED: OXYBUTYNIN CHLORIDE 5 MG TAB PO SCH (09:15)
--- NOTE | 2017-09-19 09:29 | HHI.HP ---
[facility] Salma Sainz M.D. Admission Diagnosis Right upper lobe pneumonia Diagnoses: Chief Complaint: Increased shortness of breath Travel History International Travel<30 Days: No Contact w/Intl Traveler <30 Da: No Traveled to Known Affected Are: No Sepsis Criteria SIRS Criteria (2 or more): Heart rate over 90, RR > 20 or PaCO2 < 32, WBC > 70966, < 4000 or > 10% bands Sepsis Criteria (SIRS+source): Infect source susp/known Severe Sepsis (+one): Lactate >2 History of Present Illness This patient is a 62-year-old female with increased work of breathing and dyspnea on exertion for the last several weeks and worse over the last 2 days. She called her primary provider and was complaining of sinus congestion and cough and was given amoxicillin without improvement. She began to get hoarse and felt worse. She was brought to the hospital by her family and is found to be septic with pneumonia. Patient is started on IV antibiotics and bronchodilators. She does have a history of COPD and steroids have been added. Patient has improved somewhat overnight but she is still working hard to breathe with some chest discomfort left greater than right with deep breath. Patient been admitted to the hospital for severe sepsis with pneumonia. Review of Systems Constitutional: DENIES: Diaphoretic episodes, Fatigue, Fever, Weight gain, Weight loss, Chills, Dizziness, Change in appetite, Night Sweats Eyes: DENIES: Blurred vision, Diplopia, Eye inflammation, Eye pain, Vision loss , Photosensitivity, Double Vision Ears, nose, mouth, throat: DENIES: Tinnitus, Hearing loss, Vertigo, Nasal discharge, Oral lesions, Throat pain, Hoarseness, Ear Pain, Running Nose, Epistaxis, Sinus Pain, Toothache, Odynophagia Respiratory: COMPLAINS OF: Cough, Sputum production, Shortness of breath, DENIES: Apneas, Snoring, Wheezing, Hemoptysis Cardiovascular: DENIES: Chest pain, Palpitations, Syncope, Dyspnea on Exertion , PND, Lower Extremity Edema, Orthopnea, Claudication Gastrointestinal: DENIES: Abdominal pain, Black stools, Bloody stools, Constipation, Diarrhea, Nausea, Vomiting, Difficulty Swallowing, Anorexia Genitourinary: DENIES: Abnormal vaginal bleeding, Dysmenorrhea, Dyspareunia, Sexual dysfunction, Urinary frequency, Urinary incontinence, Urgency, Hematuria , Dysuria, Nocturia, Vaginal discharge Musculoskeletal: DENIES: Joint pain, Muscle aches, Stiffness, Joint Swelling, Back pain, Neck pain Integumentary: DENIES: Abnormal pigmentation, Pruritus, Rash, Nail changes, Breast masses, Breast skin changes, Nipple discharge Hematologic/lymphatic: DENIES: Bruising, Lymphadenopathy Immunologic/allergic: DENIES: Eczema, Urticaria Neurologic: DENIES: Abnormal gait, Headache, Localized weakness, Paresthesias, Seizures, Speech Problems, Tremor, Poor Balance Psychiatric: DENIES: Anxiety, Confusion, Mood changes, Depression, Hallucinations, Agitation, Suicidal Ideation, Homicidal Ideation, Delusions Except as stated in HPI: all other systems reviewed are Neg Past Family Social History Past Medical History COPD Chronic pain Bladder instability Past Surgical History Bladder surgery Bilateral tubal ligation Tonsillectomy Reported Medications Reviewed in the EMR, took amoxicillin for 2 days prior to arrival Allergies: Coded Allergies: tetanus toxoid, adsorbed (Unverified Allergy, Severe, ANAPHYLAXIS, ) tree and shrub pollen (Unverified Allergy, Severe, SOB, 05/16/17) Uncoded Allergies: OAT POLLEN (Allergy, Severe, SOB, 09/24/13) Active Ordered Medications Reviewed in the EMR Family History Mother from heart attack and diabetes in her 80s Father in his 80s from a heart attack Physical Exam Vital Signs Vital Signs Date Time Temp Pulse Resp B/P (MAP) Pulse Ox O2 Delivery O2 Flow Rate FiO2 09/19/17 00:00 97.6 95 18 133/95 (108) 94 09/18/17 20:58 95 Nasal Cannula 3.00 09/18/17 20:00 99.1 93 18 126/85 (99) 94 09/18/17 19:39 09/18/17 19:22 94 22 126/50 (75) 95 Nasal Cannula 3.00 09/18/17 18:28 95 20 119/66 (83) 96 Nasal Cannula 3.00 09/18/17 18:10 96 Nasal Cannula 3.00 09/18/17 17:19 97 22 119/69 (86) 96 Nasal Cannula 3.00 09/18/17 16:27 98.6 90 22 112/69 (83) 97 Nasal Cannula 3.00 09/18/17 15:48 98.5 94 22 119/69 (86) 89 Physical Exam GENERAL: This is a well-nourished, well-developed patient, short of breath at rest SKIN: No rashes, ecchymoses or lesions. Cool and dry. HEAD: Atraumatic. Normocephalic. No temporal or scalp tenderness. EYES: Pupils equal round and reactive. Extraocular motions intact. No scleral icterus. No injection or drainage. ENT: Nose without bleeding, purulent drainage or septal hematoma. Throat without erythema, tonsillar hypertrophy or exudate. Uvula midline. Airway patent. NECK: Trachea midline. No JVD or lymphadenopathy. Supple, nontender, no meningeal signs. CARDIOVASCULAR: Regular rate and rhythm without murmurs, gallops, or rubs. RESPIRATORY: Bilateral a wheezes GASTROINTESTINAL: Abdomen soft, non-tender, nondistended. No hepato-splenomegaly , or palpable masses. No guarding. MUSCULOSKELETAL: Extremities without clubbing, cyanosis, or edema. No joint tenderness, effusion, or edema noted. No calf tenderness. Negative Homans sign bilaterally. NEUROLOGICAL: Awake and alert. Cranial nerves II through XII intact. Motor and sensory grossly within normal limits. Five out of 5 muscle strength in all muscle groups. Normal speech. Laboratory Laboratory Tests Test 09/18/17 16:15 09/18/17 18:05 09/18/17 20:50 09/19/17 06:25 White Blood Count 18.3 18.0 Red Blood Count 4.90 4.37 Hemoglobin 13.4 12.6 Hematocrit 40.3 36.4 Mean Corpuscular Volume 82.3 83.4 Mean Corpuscular Hemoglobin 27.4 28.9 Mean Corpuscular Hemoglobin Concent 33.3 34.6 Red Cell Distribution Width 14.1 14.7 Platelet Count 169 168 Mean Platelet Volume 8.2 8.6 Neutrophils (%) (Auto) 87.3 94.2 Lymphocytes (%) (Auto) 5.6 4.4 Monocytes (%) (Auto) 6.7 0.9 Eosinophils (%) (Auto) 0.0 0.1 Basophils (%) (Auto) 0.4 0.4 Neutrophils # (Auto) 16.0 16.9 Lymphocytes # (Auto) 1.0 0.8 Monocytes # (Auto) 1.2 0.2 Eosinophils # (Auto) 0.0 0.0 Basophils # (Auto) 0.1 0.1 CBC Comment DIFF FINAL DIFF FINAL Differential Comment Blood Urea Nitrogen 13 12 Creatinine 0.86 0.76 Random Glucose 203 338 Calcium Level 8.0 8.2 Sodium Level 135 137 Potassium Level 3.6 3.1 Chloride Level 99 105 Carbon Dioxide Level 26.8 23.4 Anion Gap 9 9 Estimat Glomerular Filtration Rate 67 77 Troponin I LESS THAN 0.02 Lactic Acid Level 3.0 2.4 Date/Time Source Procedure Growth Status 09/18/17 18:05 Blood Peripheral Aerobic Blood Culture Pending Received 09/18/17 18:05 Blood Peripheral Anaerobic Blood Culture Pending Received 09/18/17 16:15 Nasal Aspirate Influenza Types A,B Antigen (APOLINAR) - Final NEGATIVE FOR FLU A AND B ANTIGEN.... Complete Result Diagram: 09/19/17 0625 09/19/17 0625 Imaging Right upper lobe pneumonia on the review of chest x-ray Septic Shock Reassessment Septic shock perfusion: reassessment completed Caprini VTE Risk Assessment Caprini VTE Risk Assessment: Mod/High Risk (score >= 2) Caprini Risk Assessment Model Point Value = 1 Point Value = 2 Point Value = 3 Point Value = 5 Age 41-60 Minor surgery BMI > 25 kg/m2 Swollen legs Varicose veins or History of unexplained or recurrent spontaneous Oral contraceptives or hormone replacement Sepsis (< 1 month) Serious lung disease, including pneumonia (< 1 month) Abnormal pulmonary function Acute myocardial infarction Congestive heart failure (< 1 month) History of inflammatory bowel disease Medical patient at bed rest Age 61-74 Arthroscopic surgery Major open surgery (> 45 min) Laparoscopic surgery (> 45 min) Malignancy Confined to bed (> 72 hours) Immobilizing plaster cast Central venous access Age >= 75 History of VTE Family history of VTE Factor V Leiden Prothrombin [id number] Lupus anticoagulant Anticardiolipin antibodies Elevated serum homocysteine Heparin-induced thrombocytopenia Other congenital or acquired thrombophilia Stroke (< 1 month) Elective arthroplasty Hip, pelvis, or leg fracture Acute spinal cord injury (< 1 month) Prophylaxis Regimen Total Risk Factor Score Risk Level Prophylaxis Regimen 0-1 Low Early ambulation 2 Moderate Order ONE of the following: *Sequential Compression Device (SCD) *Heparin 5000 units SQ BID 3-4 Higher Order ONE of the following medications: *Heparin 5000 units SQ TID *Enoxaparin/Lovenox 40 mg SQ daily (WT < 150 kg, CrCl > 30 mL/min) *Enoxaparin/Lovenox 30 mg SQ daily (WT < 150 kg, CrCl > 10-29 mL/min) *Enoxaparin/Lovenox 30 mg SQ BID (WT < 150 kg, CrCl > 30 mL/min) AND/OR *Sequential Compression Device (SCD) 5 or more Highest Order ONE of the following medications: *Heparin 5000 units SQ TID (Preferred with Epidurals) *Enoxaparin/Lovenox 40 mg SQ daily (WT < 150 kg, CrCl > 30 mL/min) *Enoxaparin/Lovenox 30 mg SQ daily (WT < 150 kg, CrCl > 10-29 mL/min) *Enoxaparin/Lovenox 30 mg SQ BID (WT < 150 kg, CrCl > 30 mL/min) AND *Sequential Compression Device (SCD) Assessment and Plan Problem List: (1) Acute hypoxemic respiratory failure ICD Code: J96.01 - Acute respiratory failure with hypoxia Plan: Patient improved today with respiratory status although she is still winded and working bit hard Continue nebulized bronchodilators Antibiotics intravenously IV steroids Patient with right upper lobe pneumonia and severe sepsis(elevated lactic acid, tachypnea, tachycardia leukocytosis, Also hypoxemic at 89%) (2) COPD exacerbation ICD Code: J44.1 - Chronic obstructive pulmonary disease with (acute) exacerbation Status: Acute Plan: Continue IV antibiotics IV steroids Nebulized bronchodilators O2 as tolerated Code Status full code Discussed Condition With patient, Physician Certification 2 Midnight Certification Type: Admission for Inpatient Services Order for Inpatient Services The services are ordered in accordance with Medicare regulations or non- Medicare payer requirements, as applicable. In the case of services not specified as inpatient-only, they are appropriately provided as inpatient services in accordance with the 2-midnight benchmark. Estimated LOS (days): 3 3 days is the estimated time the patient will need to remain in the hospital, assuming treatment plan goals are met and no additional complications. Post-Hospital Plan: Carla Vallecillo MD Sep 19, 2017 09:29
[2017-09-19] MEDS ORDERED: POTASSIUM CHLORIDE 10 MEQ CONTROLLED RELEASE TAB PO ONE (09:30)
[2017-09-19] MEDS ORDERED: DEXTROSE 50% IN WATER 50 ML VIAL(D50) IV PUSH PRN (09:30)
[2017-09-19] MEDS ORDERED: GLUCAGON 1 MG/ML VIAL OTHER PRN (09:30)
[2017-09-19] MEDS: ENOXAPARIN SODIUM 40 MG/0.4 ML SYRINGE SQ SCH ×2 (10:00→10:26)
[2017-09-19] MEDS ORDERED: INFLUENZA VIRUS VACCINE (QUADRIVALENT) 0.5 ML SYR IM ONE (10:00)
[2017-09-19] MEDS ORDERED: PNEUMOCOCCAL POLYVALENT INJ 25 MCG/0.5 ML SYR IM ONE (10:00)
[2017-09-19] MEDS: BUDESONIDE-FORMOTEROL 160/4.5 MCG INHALER INH SCH ×2 (10:26→21:11)
[2017-09-19] MEDS ORDERED: OXYB5TAB8 PO (10:28)
[2017-09-19] MEDS: HYDROCHLOROTHIAZIDE 25 MG TAB PO SCH (10:29)
[2017-09-19] MEDS: MELOXICAM 7.5 MG TAB PO SCH (10:30)
[2017-09-19] MEDS: BACITRACIN TOP OINT 15 GM TUBE TOPICAL SCH ×2 (10:30→21:11)
[2017-09-19] MEDS ORDERED: HYDR-3583 (10:37)
[2017-09-19] MEDS ORDERED: BISACODYL EC 5 MG TABEC PO ONE (11:00)
[2017-09-19] MEDS ORDERED: POLYETHYLENE GLYCOL 17 GM PKG PO ONE (11:00)
[2017-09-19] MEDS: LIDOCAINE HCL 5% PATCH T-DERMAL SCH (11:42)
[2017-09-19] MEDS: OXYBUTYNIN CHLORIDE 5 MG TAB PO SCH ×2 (11:43→17:56)
[2017-09-19] MEDS: ACETAMINOPHEN/HYDROcodone 325 MG/10 MG TAB PO PRN ×2 (11:43→17:56)
[2017-09-19] MEDS: INSULIN ASPART SUPPLEMENTAL SCALE SQ SCH ×3 (11:53→21:12)
[2017-09-19] MEDS ORDERED: AZITHROMYCIN INJ 500 MG in SODIUM CHLOR 0.9% 250 ML INJ 250 ML IV SCH (17:00)
[2017-09-19] MEDS ORDERED: cefTRIAXone INJ 1,000 MG in SODIUM CHLORIDE 0.9% INJ 100 ML IV SCH (18:00)
--- NOTE | 2017-09-19 19:49 | EKG ---
Date Performed: 09/18/2017 Time Performed: 15:41:33 PTAGE: 62 years EKG: Sinus rhythm Since the previous tracing, no significant change noted NORMAL ECG PREVIOUS TRACING : 07/07/2017 05.41 DOCTOR: Asia Grant Interpretating Date/Time 09/19/2017 19:46:54
[2017-09-19] MEDS ORDERED: MELATONIN 5 MG TAB PO PRN (21:00)
[2017-09-20] VITALS: BP 176/80; PULSE 87; RESP 20; TEMP 96.4; O2SAT 96
[2017-09-20] MEDS: OXYBUTYNIN CHLORIDE 5 MG TAB PO SCH ×3 (00:09→12:40)
[2017-09-20] MEDS: ACETAMINOPHEN/HYDROcodone 325 MG/10 MG TAB PO PRN ×3 (00:15→15:13)
[2017-09-20] MEDS: RESP: ALBUTEROL 2.5 MG/IPRATROPIUM 0.5 MG NEB (SCH) INH ×3 (03:21→14:35)
[2017-09-20 04:00] VITALS: BP 160/62; PULSE 88; RESP 21; TEMP 96.3; O2SAT 94
[2017-09-20] MEDS: methylPREDNISolone SOD SUCC 40 MG/1 ML VIAL IV PUSH SCH ×2 (06:13→12:40)
[2017-09-20 08:00] VITALS: BP 156/80; PULSE 84; TEMP 96; O2SAT 96
[2017-09-20] MEDS ORDERED: RESP: ALBUTEROL 2.5 MG/IPRATROPIUM 0.5 MG NEB (PRN) INH (08:00)
[2017-09-20 08:23] VITALS: O2SAT 98
[2017-09-20] MEDS: INSULIN ASPART SUPPLEMENTAL SCALE SQ SCH ×2 (08:38→12:40)
[2017-09-20] MEDS: LIDOCAINE HCL 5% PATCH T-DERMAL SCH (08:39)
[2017-09-20] MEDS: HYDROCHLOROTHIAZIDE 25 MG TAB PO SCH (08:39)
[2017-09-20] MEDS: ENOXAPARIN SODIUM 40 MG/0.4 ML SYRINGE SQ SCH (08:39)
[2017-09-20] MEDS: MELOXICAM 7.5 MG TAB PO SCH (08:39)
[2017-09-20] MEDS: BUDESONIDE-FORMOTEROL 160/4.5 MCG INHALER INH SCH (08:40)
[2017-09-20] MEDS: BACITRACIN TOP OINT 15 GM TUBE TOPICAL SCH (08:40)
[2017-09-20] MEDS: SODIUM CHLORIDE 0.9% FLUSH 10 ML FLUSH IV FLUSH SCH (08:40)
[2017-09-20] MEDS ORDERED: LORATADINE 10 MG TAB PO SCH (09:00)
[2017-09-20] MEDS ORDERED: LIDOCAINE HCL 5% PATCH T-DERMAL SCH (09:00)
[2017-09-20] MEDS ORDERED: POLYETHYLENE GLYCOL 17 GM PKG PO SCH (09:00)
[2017-09-20] MEDS ORDERED: METOPROLOL TARTRATE 50 MG TAB PO ONE (09:30)
[2017-09-20] MEDS ORDERED: WHEEMIS3 (09:30)
[2017-09-20 12:00] VITALS: BP 158/60; PULSE 89; RESP 16; TEMP 97.5; O2SAT 95
[2017-09-20 12:16] LABS: HEMATOCRIT 37.7 % (35.0-46.0); HEMOGLOBIN 12.6 GM/DL (11.6-15.3); MEAN CELL VOLUME 83.7 FL (80.0-100.0); MEAN CORPUSCULAR HEMOGLOBIN 27.9 PG (27.0-34.0); MEAN CORPUSCULAR HGB CONC 33.3 % (32.0-36.0); MEAN PLATELET VOLUME 8.4 FL (7.0-11.0); PLATELET COUNT 241 TH/MM3 (150-450); RED BLOOD COUNT 4.51 MIL/MM3 (4.00-5.30); RED CELL DISTRIBUTION WIDTH 14.9 % (11.6-17.2); WHITE BLOOD COUNT 18.5 TH/MM3 (4.0-11.0)
[2017-09-20 12:37] LABS: BICARBONATE 25.7 MEQ/L (21.0-32.0); CREATININE 0.94 MG/DL (0.50-1.00)
[2017-09-20] MEDS ORDERED: AUGM875T3 PO (14:05)
[2017-09-20] MEDS ORDERED: LACTTAB8 PO (14:05)
[2017-09-20] MEDS ORDERED: AZIT500T2 PO (14:05)
[2017-09-20] MEDS ORDERED: PRED10 PO (14:05)
--- NOTE | 2017-09-20 14:11 | HHI.DS ---
Discharge Summary Admission Date Sep 18, 2017 at 18:00 Discharge Date: Sep 20, 2017 Admitting Diagnosis Right upper lobe pneumonia (1) Acute hypoxemic respiratory failure ICD Code: J96.01 - Acute respiratory failure with hypoxia Diagnosis: Principal (2) COPD exacerbation ICD Code: J44.1 - Chronic obstructive pulmonary disease with (acute) exacerbation Diagnosis: Principal Status: Acute Procedures None Brief History - From Admission This patient is a 62-year-old female with increased work of breathing and dyspnea on exertion for the last several weeks and worse over the last 2 days. She called her primary provider and was complaining of sinus congestion and cough and was given amoxicillin without improvement. She began to get hoarse and felt worse. She was brought to the hospital by her family and is found to be septic with pneumonia. Patient is started on IV antibiotics and bronchodilators. She does have a history of COPD and steroids have been added. Patient has improved somewhat overnight but she is still working hard to breathe with some chest discomfort left greater than right with deep breath. Patient been admitted to the hospital for severe sepsis with pneumonia. CBC/BMP: 09/20/17 1205 09/20/17 1205 Significant Findings Laboratory Tests Test 09/18/17 16:15 09/18/17 18:05 09/18/17 20:50 09/19/17 06:25 White Blood Count 18.3 TH/MM3 (4.0-11.0) 18.0 TH/MM3 (4.0-11.0) Neutrophils (%) (Auto) 87.3 % (16.0-70.0) 94.2 % (16.0-70.0) Lymphocytes (%) (Auto) 5.6 % (9.0-44.0) 4.4 % (9.0-44.0) Neutrophils # (Auto) 16.0 TH/MM3 (1.8-7.7) 16.9 TH/MM3 (1.8-7.7) Monocytes # (Auto) 1.2 TH/MM3 (0-0.9) Random Glucose 203 MG/DL (74-106) 338 MG/DL (74-106) Calcium Level 8.0 MG/DL (8.5-10.1) 8.2 MG/DL (8.5-10.1) Sodium Level 135 MEQ/L (136-145) Estimat Glomerular Filtration Rate 67 ML/MIN (>89) 77 ML/MIN (>89) Troponin I LESS THAN 0.02 NG/ML Lactic Acid Level 3.0 mmol/L (0.4-2.0) 2.4 mmol/L (0.4-2.0) Lymphocytes # (Auto) 0.8 TH/MM3 (1.0-4.8) Potassium Level 3.1 MEQ/L (3.5-5.1) Test 09/20/17 12:05 White Blood Count 18.5 TH/MM3 (4.0-11.0) Random Glucose 387 MG/DL (74-106) Estimat Glomerular Filtration Rate 60 ML/MIN (>89) Hospital Course Mrs. Schumacher is a 61-year-old female. She was admitted secondary to respiratory distress related to pneumonia with underlying COPD. Antibiotics and breathing treatments and steroids are provided. Patient has had gradual improvement. She reports difficulty sleeping. She is able to be weaned off oxygen today and would prefer to be home. Medically today she is stable for discharge to home. She'll discharge home with pulmonary rehabilitation and with a wheelchair prescription. Patient's bilateral shoulder pain prevents her from using a walker. Exertional dyspnea makes it difficult for her to walk long distances, wheelchair would be helpful for this. Pt Condition on Discharge: Stable Discharge Disposition: Discharge Home Discharge Time: <= 30 minutes Discharge Instructions DIET: Follow Instructions for: Diabetic Diet Activities you can perform: Regular-No Restrictions Follow up Referrals: PCP Follow-up - 2 Weeks New Medications: Amoxicillin-Clavulanate (Augmentin) 875-125 Mg Tab 1 TAB PO BID for Infection, #14 TAB 0 Refills Azithromycin (Azithromycin) 500 Mg Tab 500 MG PO DAILY for Infection, #3 TAB 0 Refills Lactobacillus Acidophilus (Lactobacillus Acidophilus) 1 Billion Cell Tab 1 TAB PO TIDAC for Nutritional Supplement, #30 TAB 0 Refills Prednisone (Prednisone) 10 Mg Tab 10 MG PO DIRECTED for Inflammation, #14 TAB 0 Refills 2 TABS BY MOUTH DAILY, DAY 1 TO 4 1 TAB BY MOUTH DAILY, DAY 5 TO 8 1/2 TAB BY MOUTH DAILY, DAY 9-12 THEN STOP Wheelchair (Wheelchair) 1 Mis Mis EA .XX DIRECTED for weakness, #1 0 Refills Continued Medications: Albuterol 8.5 GM Inh (Proair Hfa 8.5 GM Inh) 90 Mcg/Act Aer 2 PUFF INH Q4-6H PRN for SHORTNESS OF BREATH, #1 INHALER 0 Refills 108 mcg/actuation Albuterol Neb (Albuterol Neb) 0.63 Mg/3 Ml Neb 0.63 MG NEB Q4HR NEB PRN for SHORTNESS OF BREATH, #25 NEBULE 0 Refills Fluticasone-Salmeterol Inh (Advair Diskus Inh) 500-50 Mcg/Blist Aer 1 PUFF INH BID, #1 INHALER 0 Refills Rinse mouth after use. Hydrochlorothiazide (Hydrochlorothiazide) 25 Mg Tab 25 MG PO DAILY, #30 TAB 0 Refills Hydrocodone/Acetaminophen (Hydrocodone-Acetamin 10-325 mg) 10 Mg-325 Mg Tablet Q6HR Lidocaine Patch 12 HR (Lidocaine Patch 12 HR) 5 % Patch 1 PATCH TOPICAL DAILY for Pain Management, #1 BOX 0 Refills Remove patch after 12 hours Loratadine (Claritin) 10 Mg Cap 10 MG PO DAILY for Allergy Management, CAP 0 Refills Meloxicam (Meloxicam) 7.5 Mg Tab 7.5 MG PO DAILY for Arthritis Pain, TAB 0 Refills Oxybutynin (Ditropan) 5 Mg Tab 5 MG PO Q6HR for Urinary Symptom Managemen, #60 TAB 0 Refills Jamison Romero MD Sep 20, 2017 14:11
[2017-09-20] MEDS ORDERED: METOPROLOL TARTRATE 50 MG TAB PO SCH (21:00)
== END 2017-09-20 17:02 | disposition home or self-care (01) | DRG 871 ==
LOC: PHED 15:32 → PHEDA 18:00 → PH3A 19:58
PROVIDERS: ADMIT Hospitalist; ATTEND Hospitalist
DX: A41.9 Sepsis, unspecified organism (principal); J96.01 Acute respiratory failure with hypoxia; J18.9 Pneumonia, unspecified organism; J44.1 Chronic obstructive pulmonary disease with (acute) exacerbation; J44.0 Chronic obstructive pulmonary disease with (acute) lower respiratory infection; R65.20 Severe sepsis without septic shock; I10 Essential (primary) hypertension; M25.511 Pain in right shoulder; M25.512 Pain in left shoulder
CPT/HCPCS: 71045; 80048; 82948; 83605; 84484; 85025; 85027; 87040; 87804; 93005; 94618; 94640; 94664; 96374; J0456; J0696; J1650; J1815; J2920; J2930; J7030; J7050

== ENCOUNTER 2017-09-23 18:30 | Inpatient (IN) | payer MEDICAID ==
[~2017-09-23] VITALS: Ht 162.6 cm; Wt 119.7 kg
[~2017-09-23 18:30] MED LIST changes: +AUGM875T3 PO; +AZIT500T2 PO; -CIPR-9 PO; +HYDR-3583; -HYDR12.57 PO; +LACTTAB8 PO; -METO25TA3 PO; -PHEN0.4T PO; +PRED10 PO; +WHEEMIS3
[2017-09-23 18:43] VITALS: BP 164/86; PULSE 117; RESP 20; TEMP 100.2; O2SAT 93
--- NOTE | 2017-09-23 19:25 | PD ---
HPI Chief Complaint: Respiratory Symptoms Time Seen by Provider: 19:13 Travel History International Travel<30 days: No Contact w/Intl Traveler<30days: No Traveled to known affect area: No History of Present Illness HPI The patient is a 62-year-old female that has right upper lobe pneumonia. She was admitted to the hospital on the , given Rocephin and Zithromax and she was discharged on a Z-Alfonso and Augmentin on the . She states she is not better. She has a history of COPD. She never smoked, her COPD is from secondhand smoke. She complains of tightness in her chest. She states she has a nebulizer at home and used it 4 hours ago but is not getting any relief with the nebulizer. She does not get oxygen at home. She also was put on prednisone 10 mg daily. She states she does have a fever of 102 at home. She has never had blood gases done. She denies any history of tuberculosis. PFSH Past Medical History Anemia: Yes (Chronic) Arthritis: Yes (OA, RA) Asthma: Yes Autoimmune Disease: Yes (ARTHRITIS) Heart Rhythm Problems: No Cancer: Yes Cardiovascular Problems: Yes (HTN) High Cholesterol: No Chemotherapy: No Chest Pain: No Congestive Heart Failure: No COPD: Yes Cerebrovascular Accident: No Diabetes: No Diminished Hearing: No Endocrine: Yes Gastrointestinal Disorders: Yes GERD: No Genitourinary: Yes (Bladder prolapse ) Headaches: Yes Hepatitis: No Hiatal Hernia: No Hypertension: Yes Immune Disorder: No Kidney Stones: No Neurologic: No Psychiatric: No Reproductive: No Respiratory: Yes (COPD, Asthma) Immunizations Current: Yes Migraines: Yes Myocardial Infarction: Yes Pneumonia: Yes Radiation Therapy: No Renal Failure: No Seizures: No Sleep Apnea: No Thyroid Disease: Yes Ulcer: No Tetanus Vaccination: > 5 Years Influenza Vaccination: Yes ?: Not Menopausal: Yes : 5 Para: 4 Miscarriage: 1 Ovarian Cysts: Yes Tubal Ligation: Yes (w/ reversal ) Past Surgical History Abdominal Surgery: Yes (Laproscopy ) AICD: No Ear Surgery: No Eye Surgery: No Gynecologic Surgery: Yes (tubaligation) Oral Surgery: No Pacemaker: No Tonsillectomy: Yes (& adenoids) Other Surgery: Yes (Nose, sinus) Social History Alcohol Use: No Tobacco Use: No Substance Use: No Allergies-Medications (Allergen,Severity, Reaction): Coded Allergies: tetanus toxoid, adsorbed (Unverified Allergy, Severe, ANAPHYLAXIS, 09/23/17 ) tree and shrub pollen (Unverified Allergy, Severe, SOB, 09/23/17) Uncoded Allergies: OAT POLLEN (Allergy, Severe, SOB, 09/24/13) Reported Meds & Prescriptions Reported Meds & Active Scripts Active Prednisone 10 Mg Tab 10 Mg PO DIRECTED 2 TABS BY MOUTH DAILY, DAY 1 TO 4 1 TAB BY MOUTH DAILY, DAY 5 TO 8 1/2 TAB BY MOUTH DAILY, DAY 9-12 THEN STOP Lactobacillus Acidophilus 1 Billion Cell Tab 1 Tab PO TIDAC Augmentin (Amoxicillin-Clavulanate) 875-125 Mg Tab 1 Tab PO BID Azithromycin 500 Mg Tab 500 Mg PO DAILY Wheelchair (Device) 1 Mis Mis Ea .XX DIRECTED Proair Hfa 8.5 GM Inh (Albuterol Sulfate) 90 Mcg/Act Aer 2 Puff INH Q4-6H PRN 108 mcg/actuation Advair Diskus Inh (Fluticasone-Salmeterol Inh) 500-50 Mcg/Blist Aer 1 Puff INH BID Rinse mouth after use. Reported Tylenol (Acetaminophen) 325 Mg Tab 650 Mg PO Q6H PRN Hydrocodone-Acetamin 10-325 mg (Hydrocodone/Acetaminophen) 10 Mg-325 Mg Tablet Q6HR Ditropan (Oxybutynin Chloride) 5 Mg Tab 5 Mg PO Q6HR Hydrochlorothiazide 25 Mg Tab 25 Mg PO DAILY Claritin (Loratadine) 10 Mg Cap 10 Mg PO DAILY Lidocaine Patch 12 HR (Lidocaine) 5 % Patch 1 Patch TOPICAL DAILY Remove patch after 12 hours Albuterol Neb (Albuterol Sulfate) 0.63 Mg/3 Ml Neb 0.63 Mg NEB Q4HR NEB PRN Meloxicam 7.5 Mg Tab 7.5 Mg PO DAILY Review of Systems Except as stated in HPI: all other systems reviewed are Neg Physical Exam Narrative GENERAL: The patient is alert, oriented 3 in slight respiratory distress. The vital signs show blood pressure 164/86 with heart rate 117 and oximetry 93% and temperature 100.2. SKIN: Focused skin assessment warm/dry. HEAD: Atraumatic. Normocephalic. EYES: Pupils equal and round. No scleral icterus. No injection or drainage. ENT: No nasal bleeding or discharge. Mucous membranes pink and moist. NECK: Trachea midline. No JVD. CARDIOVASCULAR: Regular rate and rhythm. No murmur appreciated. RESPIRATORY: No accessory muscle use. Clear to auscultation. Breath sounds equal bilaterally. GASTROINTESTINAL: Abdomen soft, non-tender, nondistended. Hepatic and splenic margins not palpable. MUSCULOSKELETAL: No obvious deformities. No clubbing. No cyanosis. No edema. NEUROLOGICAL: Awake and alert. No obvious cranial nerve deficits. Motor grossly within normal limits. Normal speech. PSYCHIATRIC: Appropriate mood and affect; insight and judgment normal. Data Data Last Documented VS Vital Signs Date Time Temp Pulse Resp B/P (MAP) Pulse Ox O2 Delivery O2 Flow Rate FiO2 09/23/17 22:30 97 Nasal Cannula 2.00 09/23/17 22:30 99.0 122 20 152/79 (103) Orders Orders Complete Blood Count With Diff (09/23/17 19:16) Comprehensive Metabolic Panel (09/23/17 19:16) B-Type Natriuretic Peptide (09/23/17 19:16) Troponin I (09/23/17 19:16) Arterial Blood Gas (Abg) (09/23/17 19:16) Urinalysis - C+S If Indicated (09/23/17 19:16) Iv Access Insert/Monitor (09/23/17 19:16) Ecg Monitoring (09/23/17 19:16) Oximetry (09/23/17 19:16) Oxygen Administration (09/23/17 19:16) Chest, Pa & Lat (09/23/17 19:16) Sodium Chloride 0.9% Flush (Ns Flush) (09/23/17 19:30) Albuterol-Ipratropium Neb (Duoneb Neb) (09/23/17 19:30) Ct Thorax/ Chest W Iv Contrast (09/23/17 ) Iohexol 350 Inj (Omnipaque 350 Inj) (09/23/17 21:32) Guaifen-Cod 200-20 Mg/10ml Liq (Robituss (09/23/17 22:15) Admit Order (Ed Use Only) (09/23/17 22:55) Labs Laboratory Tests Test 09/23/17 19:37 09/23/17 19:40 Blood Gas Puncture Site LT RADIAL Blood Gas Patient Temperature 98.6 Blood Gas HCO3 28 mmol/L Blood Gas Base Excess 4.9 mmol/L Blood Gas Oxygen Saturation 93 % Arterial Blood pH 7.49 Arterial Blood Partial Pressure CO2 37 mmHG Arterial Blood Partial Pressure O2 70 mmHG Arterial Blood Oxygen Content 17.8 Vol % Arterial Blood Carboxyhemoglobin 1.6 % Arterial Blood Methemoglobin 1.2 % Blood Gas Hemoglobin 13.6 G/DL Oxygen Delivery Device ROOM AIR Blood Gas Inspired Oxygen 21 % White Blood Count 12.3 TH/MM3 Red Blood Count 5.09 MIL/MM3 Hemoglobin 13.9 GM/DL Hematocrit 42.1 % Mean Corpuscular Volume 82.7 FL Mean Corpuscular Hemoglobin 27.3 PG Mean Corpuscular Hemoglobin Concent 33.0 % Red Cell Distribution Width 14.2 % Platelet Count 240 TH/MM3 Mean Platelet Volume 8.0 FL CBC Comment AUTO DIFF Differential Total Cells Counted 100 Neutrophils % (Manual) 87 % Lymphocytes % 11 % Monocytes % 2 % Neutrophils # (Manual) 10.7 TH/MM3 Differential Comment FINAL DIFF MANUAL Platelet Estimate NORMAL Platelet Morphology Comment NORMAL Red Cell Morphology Comment NORMAL Urine Color YELLOW Urine Turbidity CLEAR Urine pH 7.0 Urine Specific [place] 1.010 Urine Protein NEG mg/dL Urine Glucose (UA) 1000 OR GREATER mg/dL Urine Ketones NEG mg/dL Urine Occult Blood NEG Urine Nitrite NEG Urine Bilirubin NEG Urine Urobilinogen 0.2 MG/DL Urine Leukocyte Esterase NEG Urine RBC 0-2 /hpf Urine WBC 0-2 /hpf Urine Squamous Epithelial Cells 0-5 /hpf Urine Bacteria NONE /hpf Urine Yeast with Hyphae MOD Urine Yeast (Budding) MANY Microscopic Urinalysis Comment CULT NOT INDICATED Blood Urea Nitrogen 7 MG/DL Creatinine 0.71 MG/DL Random Glucose 245 MG/DL Total Protein 6.7 GM/DL Albumin 2.6 GM/DL Calcium Level 8.4 MG/DL Alkaline Phosphatase 123 U/L Aspartate Amino Transf (AST/SGOT) 12 U/L Alanine Aminotransferase (ALT/SGPT) 41 U/L Total Bilirubin 0.7 MG/DL Sodium Level 134 MEQ/L Potassium Level 3.7 MEQ/L Chloride Level 97 MEQ/L Carbon Dioxide Level 31.2 MEQ/L Anion Gap 6 MEQ/L Estimat Glomerular Filtration Rate 83 ML/MIN Troponin I LESS THAN 0.02 NG/ML B-Type Natriuretic Peptide 119 PG/ML MDM Medical Decision Making Medical Screen Exam Complete: Yes Emergency Medical Condition: Yes Medical Record Reviewed: Yes Interpretation(s) The blood gases show pH 7.49, CO2 37, PO2 70 with O2 sat 93% on room air. The chest x-ray shows persistent increased density/mass in the right upper lung. The CT of the thorax shows a 6 cm cavitary mass in the right upper lobe with other surrounding areas of focal mass or consolidation in the right upper lobe. The radiologist felt this is likely a infectious/inflammatory process but neoplastic change is possible. The GFR is 83, glucose 245, albumin 2.6 with calcium 8.4 and alkaline phosphatase 123 and sodium 134 but the rest of the complete metabolic profile is normal. The troponin I is less than 0.02. The BNP is 119. Differential Diagnosis Right upper lobe pneumonia, right upper lobe mass, tuberculosis-highly unlikely Narrative Course The patient has a right upper lobe cavitary mass along with pneumonia. She will be admitted to the [facility], I discussed this with Dr. Steward. Diagnosis Primary Impression: Right upper lobe pneumonia Additional Impression: Cavitary lesion of lung Admitting Information Admitting Physician Requests: Admit Jax Burton MD Sep 23, 2017 19:25
[2017-09-23] MEDS ORDERED: TYLE325T PO (19:27)
[2017-09-23] MEDS ORDERED: SODIUM CHLORIDE 0.9% FLUSH 10 ML FLUSH IVF PRN (19:30)
[2017-09-23] MEDS: RESP: ALBUTEROL 2.5 MG/IPRATROPIUM 0.5 MG NEB (SCH) INH ×2 (19:39→19:40)
[2017-09-23 19:50] LABS: BILIRUBIN, URINE NEG (NEG); BLOOD, URINE NEG (NEG); GLUCOSE,URINE 1000 OR GREATER mg/dL (NEG); KETONE, URINE NEG (NEG); NITRITE,URINE NEG (NEG); URINE COLOR YELLOW (YELLW/STRAW); URINE LEUKOCYTE ESTERASE NEG (NEG)
[2017-09-23 19:51] LABS: HEMATOCRIT 42.1 % (35.0-46.0); HEMOGLOBIN 13.9 GM/DL (11.6-15.3); MEAN CELL VOLUME 82.7 FL (80.0-100.0); MEAN CORPUSCULAR HEMOGLOBIN 27.3 PG (27.0-34.0); PLATELET COUNT 240 TH/MM3 (150-450); RED BLOOD COUNT 5.09 MIL/MM3 (4.00-5.30); RED CELL DISTRIBUTION WIDTH 14.2 % (11.6-17.2); WHITE BLOOD COUNT 12.3 TH/MM3 (4.0-11.0)
[2017-09-23 19:55] LABS: RBC, URINE 0-2 /hpf (0-3); SQUAMOUS EPITHELIAL CELL URINE 0-5 /hpf (0-5); WBC, URINE 0-2 /hpf (0-5)
[2017-09-23 20:12] LABS: ALBUMIN 2.6 GM/DL (3.4-5.0); ALKALINE PHOSPHATASE 123 U/L (45-117); ALT (GPT) 41 U/L (10-53); AST (GOT) 12 U/L (15-37); BICARBONATE 31.2 MEQ/L (21.0-32.0); BLOOD UREA NITROGEN 7 MG/DL (7-18); CALCIUM 8.4 MG/DL (8.5-10.1); CHLORIDE 97 MEQ/L (98-107); CREATININE 0.71 MG/DL (0.50-1.00); GLOMERULAR FILTRATION RATE 83 ML/MIN (>89); GLUCOSE,RANDOM 245 MG/DL (74-106); SODIUM (NA) 134 MEQ/L (136-145); TOTAL BILIRUBIN ADULT 0.7 MG/DL (0.2-1.0); TOTAL PROTEIN 6.7 GM/DL (6.4-8.2); TROPONIN I LESS THAN 0.02 NG/ML (0.02-0.05)
[2017-09-23 20:14] VITALS: BP 179/85; PULSE 122; RESP 22; TEMP 99.8; O2SAT 97
--- NOTE | 2017-09-23 20:33 | RADRPT ---
EXAM DATE/TIME: 09/23/2017 19:21 [facility] COMPARISON: CHEST SINGLE AP, September 22, 2016, 2:08. CHEST SINGLE AP, September 18, 2017, 16:05. INDICATIONS : Chest pain and shortness of breath. MEDICAL HISTORY : Hypertension. Chronic obstructive pulmonary disease. Myocardial infarction. Asthma. SURGICAL HISTORY : None. ENCOUNTER: [facility] ACUITY: 1 week PAIN SCORE: 9/10 LOCATION: Bilateral chest FINDINGS: There is continued increased density in the right upper lung. There is a possible cavitary change. Le ft lung is clear. The heart size is normal. A significant effusion is not seen. CONCLUSION: Persistent increased density/mass in the right upper lung. Oswaldo Vilchis MD on September 23, 2017 at 20:30 Board Certified Radiologist. This report was verified electronically.
[2017-09-23 20:54] LABS: LYMPHOCYTES 11 % (9-44); MONOCYTES 2 % (0-8); NEUTROPHIL # MANUAL DIFF 10.7 TH/MM3 (1.8-7.7); POLYS (SEG NEUTROPHILS) 87 % (16-70)
[2017-09-23] MEDS ORDERED: IOHEXOL 350 MG/ML 10 ML VIAL (for RAD DIAG) IVCONTRAST ONE (21:32)
[2017-09-23 21:50] VITALS: BP 179/96; PULSE 112; RESP 22; O2SAT 97
--- NOTE | 2017-09-23 22:04 | RADRPT ---
EXAM DATE/TIME: 09/23/2017 21:23 [facility] COMPARISON: CHEST SINGLE AP, September 22, 2016, 2:08. INDICATIONS : Abnormal chest xray. Cough. IV CONTRAST: 65 cc Omnipaque 350 (iohexol) IV RADIATION DOSE: 24.67 CTDIvol (mGy) ; Patient body habitus MEDICAL HISTORY : Hypertension. Chronic obstructive pulmonary disease. Myocardial infarction. SURGICAL HISTORY : Tubal ligation. ENCOUNTER: Initial ACUITY: 4 - 6 days PAIN SCALE: 0/10 LOCATION: Bilateral chest TECHNIQUE: Volumetric scanning of the chest was performed. Using automated exposure control and adjustment of t he mA and/or kV according to patient size, radiation dose was kept as low as reasonably achievable to obtain optimal diagnostic quality images. DICOM format image data is available electronically for review and comparison. Follow-up recommendations for detected pulmonary nodules are based at a minimum on nodule size and pa tient risk factors according to Fleischner Society Guidelines. FINDINGS: LUNGS: There is a 6 cm cavitary mass seen in the right upper lobe. There is further consolidation or mass se en anterior to this cavitary mass and at the inferior lateral right upper lobe abutting the minor fis sure. PLEURA: There is a minimal amount of right pleural fluid present. MEDIASTINUM: The heart and great vessels demonstrate no acute abnormality. There is no mediastinal or hilar lymph adenopathy. AXILLAE: Within normal limits. No lymphadenopathy. SKELETAL: Within normal limits for patient age. MISCELLANEOUS: The visualized upper abdominal organs demonstrate no acute abnormality. CONCLUSION: 6 cm cavitary mass in the right upper lobe with other surrounding areas of focal mass or consolidatio n in the right upper lobe. This distribution within one lobe is most suggestive of inflammatory/infec tious process however, it is nonspecific and neoplastic change could have a similar appearance. Oswaldo Vilchis MD on September 23, 2017 at 21:58 Board Certified Radiologist. This report was verified electronically.
[2017-09-23] MEDS ORDERED: guaiFENesin/CODEINE SYRUP 200 MG/20 MG/10 ML CUP PO ONE (22:15)
[2017-09-23 22:30] VITALS: BP 152/79; PULSE 122; RESP 20; TEMP 99; O2SAT 97
[2017-09-23] MEDS ORDERED: SODIUM CHLOR 0.9% 1000 ML INJ 1,000 ML IV SCH (22:54)
[2017-09-23] MEDS ORDERED: ACETAMINOPHEN 325 MG TAB PO PRN (23:00)
[2017-09-23] MEDS ORDERED: BISACODYL 10 MG SUPP RECTAL PRN (23:00)
[2017-09-23] MEDS ORDERED: Vancomycin Consult Pharmacy 1 EA OTHER SCH (23:00)
[2017-09-23] MEDS ORDERED: CEFEPIME INJ 1,000 MG in SODIUM CHLORIDE 0.9% INJ 100 ML IV SCH (23:00)
[2017-09-23] MEDS ORDERED: SODIUM CHLORIDE 0.9% FLUSH 10 ML FLUSH IV FLUSH PRN (23:00)
[2017-09-23] MEDS ORDERED: RESP: ALBUTEROL 2.5 MG/IPRATROPIUM 0.5 MG NEB (PRN) NEB (23:00)
[2017-09-23] MEDS ORDERED: LACTULOSE SYRUP 20 GM/30 ML CUP PO PRN (23:00)
[2017-09-23] MEDS ORDERED: SENNOSIDES 8.6 MG TAB PO PRN (23:00)
[2017-09-23] MEDS ORDERED: ONDANSETRON HCL 4 MG/2 ML VIAL IVP PRN (23:00)
[2017-09-23] MEDS ORDERED: MAGNESIUM HYDROXIDE SUSP 30 ML CUP PO PRN (23:00)
[2017-09-24] VITALS (9 sets, daily range): BP systolic 120–184; BP diastolic 62–93; PULSE 88–118; RESP 18–24; TEMP 97.2–101.5; O2SAT 94–98
[2017-09-24] MEDS: VANCOMYCIN INJ 1,400 MG in SODIUM CHLORID 0.9% 500 ML INJ 500 ML IV SCH ×2 (01:29→13:02)
[2017-09-24] MEDS ORDERED: guaiFENesin/CODEINE SYRUP 200 MG/20 MG/10 ML CUP PO ONE (03:00)
[2017-09-24] MEDS: ENALAPRILAT 1.25 MG/ML VIAL IV PUSH PRN (03:20)
[2017-09-24 06:38] LABS: AUTOMATED NEUTROPHIL # 10.8 TH/MM3 (1.8-7.7); BASOPHIL % 0.1 % (0.0-2.0); EOSINOPHIL % 0.2 % (0.0-4.0); HEMATOCRIT 36.5 % (35.0-46.0); HEMOGLOBIN 12.1 GM/DL (11.6-15.3); LYMPH % 16.4 % (9.0-44.0); LYMPHOCYTE # 2.3 TH/MM3 (1.0-4.8); MEAN CELL VOLUME 83.1 FL (80.0-100.0); MEAN CORPUSCULAR HEMOGLOBIN 27.5 PG (27.0-34.0); MEAN CORPUSCULAR HGB CONC 33.1 % (32.0-36.0); MEAN PLATELET VOLUME 8.3 FL (7.0-11.0); MONO % 5.2 % (0.0-8.0); MONOCYTE # 0.7 TH/MM3 (0-0.9); NEUT % 78.1 % (16.0-70.0); PLATELET COUNT 228 TH/MM3 (150-450); RED BLOOD COUNT 4.39 MIL/MM3 (4.00-5.30); RED CELL DISTRIBUTION WIDTH 14.5 % (11.6-17.2); WHITE BLOOD COUNT 13.8 TH/MM3 (4.0-11.0)
[2017-09-24 06:40] LABS: CHLORIDE 98 MEQ/L (98-107); SODIUM (NA) 134 MEQ/L (136-145)
[2017-09-24 07:03] LABS: ALBUMIN 2.2 GM/DL (3.4-5.0); ALKALINE PHOSPHATASE 101 U/L (45-117); ALT (GPT) 31 U/L (10-53); AST (GOT) 9 U/L (15-37); BICARBONATE 29.6 MEQ/L (21.0-32.0); BLOOD UREA NITROGEN 9 MG/DL (7-18); CREATININE 0.63 MG/DL (0.50-1.00); GLOMERULAR FILTRATION RATE 95 ML/MIN (>89); GLUCOSE,RANDOM 253 MG/DL (74-106); TOTAL BILIRUBIN ADULT 0.9 MG/DL (0.2-1.0); TOTAL PROTEIN 5.8 GM/DL (6.4-8.2)
[2017-09-24] MEDS ORDERED: GLUCAGON 1 MG/ML VIAL OTHER PRN (07:45)
[2017-09-24] MEDS ORDERED: DEXTROSE 50% IN WATER 50 ML VIAL(D50) IV PUSH PRN (07:45)
[2017-09-24] MEDS: INSULIN ASPART SUPPLEMENTAL SCALE SQ SCH ×4 (08:00→20:33)
[2017-09-24] MEDS: RESP: ALBUTEROL 2.5 MG/IPRATROPIUM 0.5 MG NEB (SCH) NEB ×3 (08:07→19:26)
[2017-09-24] MEDS: DOCUSATE SODIUM 50 MG/SENNA 8.6 MG TAB PO SCH ×2 (08:31→20:27)
[2017-09-24] MEDS: ACETAMINOPHEN/HYDROcodone 325 MG/5 MG TAB PO PRN ×3 (08:32→20:40)
[2017-09-24] MEDS: PIPERACIL-TAZO 4.5 GM PREMIX 100 ML IV SCH ×3 (08:32→20:27)
[2017-09-24] MEDS: BUDESONIDE-FORMOTEROL 160/4.5 MCG INHALER INH SCH ×2 (08:32→08:47)
[2017-09-24] MEDS: SODIUM CHLORIDE 0.9% FLUSH 10 ML FLUSH IV FLUSH SCH ×2 (08:33→20:16)
[2017-09-24] MEDS: guaiFENesin E.R. 600 MG TAB PO SCH ×2 (08:34→20:27)
[2017-09-24] MEDS: NS + KCL 20 MEQ INJ 1,000 ML IV SCH ×2 (08:47→18:12)
--- NOTE | 2017-09-24 09:53 | HHI.HP ---
[facility] Service [facility] Primary Care Physician Abhinav Sainz MD (Paul) Admission Diagnosis Right upper lobe cavitary mass, pneumonia Diagnoses: (1) Sepsis Diagnosis: Principal (2) Cavitary lesion of lung Diagnosis: Principal Chief Complaint: Shortness of breath, difficulty breathing Travel History International Travel<30 Days: No Contact w/Intl Traveler <30 Da: No Traveled to Known Affected Are: No Sepsis Criteria SIRS Criteria (2 or more): Temp > 100.9 or < 96.8, Heart rate over 90, WBC > 18012, < 4000 or > 10% bands Sepsis Criteria (SIRS+source): Infect source susp/known Criteria Outcome: Meets sepsis criteria History of Present Illness 62-year-old female with known history of chronic obstructive pulmonary disease, chronic pain who was recently admitted to the hospital for right upper lobe pneumonia on 09/19/17. Patient underwent treatment with antibiotics, nebulizer and she was improving, the next day the patient was very eager to be discharged and hospitalist facilitated with outpatient discharge with arranging nebulizer, outpatient antibiotics, wheelchair with outpatient follow-up with her primary medical doctor. However patient states that she did not get the majority of the DME equipment especially the wheelchair so she had to exert herself more. She continued to have shortness of breath, dyspnea, as indicated that she had fever at home and she was not improving so she returned to the ER for evaluation. Patient had workup done which did indicate a cavitary lesion in the right upper lung, no signs of any hypoxia. Patient does have signs of sepsis with leukocytosis, febrile illness, tachycardia, right upper lung cavitary lesion. Patient was admitted to the hospital for further evaluation and management. Global Regulatory Affairs Manager was consulted for further recommendations. Upon seeing the patient's morning she does have significant laryngitis and difficulty understanding her speech. However she did convey that she did not receive her wheelchair and had difficulty with ambulating with increased shortness of breath and dyspnea. She states that she has had copious amounts of phlegm. Denies any chest pain, abdominal pain, nausea, vomiting, any appetite changes or weight loss. Review of Systems Respiratory: COMPLAINS OF: Shortness of breath Cardiovascular: COMPLAINS OF: Dyspnea on Exertion Except as stated in HPI: all other systems reviewed are Neg Past Family Social History Past Medical History Hypertension Chronic obstructive pulmonary disease Chronic pain Past Surgical History Cryosurgery for cervical cancer Tubal ligation, with reverse Left knee surgery Tonsillectomy Reported Medications Reported Meds & Active Scripts Active Prednisone 10 Mg Tab 10 Mg PO DIRECTED 2 TABS BY MOUTH DAILY, DAY 1 TO 4 1 TAB BY MOUTH DAILY, DAY 5 TO 8 1/2 TAB BY MOUTH DAILY, DAY 9-12 THEN STOP Lactobacillus Acidophilus 1 Billion Cell Tab 1 Tab PO TIDAC Augmentin (Amoxicillin-Clavulanate) 875-125 Mg Tab 1 Tab PO BID Azithromycin 500 Mg Tab 500 Mg PO DAILY Wheelchair (Device) 1 Mis Mis Ea .XX DIRECTED Proair Hfa 8.5 GM Inh (Albuterol Sulfate) 90 Mcg/Act Aer 2 Puff INH Q4-6H PRN 108 mcg/actuation Advair Diskus Inh (Fluticasone-Salmeterol Inh) 500-50 Mcg/Blist Aer 1 Puff INH BID Rinse mouth after use. Reported Tylenol (Acetaminophen) 325 Mg Tab 650 Mg PO Q6H PRN Hydrocodone-Acetamin 10-325 mg (Hydrocodone/Acetaminophen) 10 Mg-325 Mg Tablet Q6HR Ditropan (Oxybutynin Chloride) 5 Mg Tab 5 Mg PO Q6HR Hydrochlorothiazide 25 Mg Tab 25 Mg PO DAILY Claritin (Loratadine) 10 Mg Cap 10 Mg PO DAILY Lidocaine Patch 12 HR (Lidocaine) 5 % Patch 1 Patch TOPICAL DAILY Remove patch after 12 hours Albuterol Neb (Albuterol Sulfate) 0.63 Mg/3 Ml Neb 0.63 Mg NEB Q4HR NEB PRN Meloxicam 7.5 Mg Tab 7.5 Mg PO DAILY Allergies: Coded Allergies: tetanus toxoid, adsorbed (Unverified Allergy, Severe, ANAPHYLAXIS, 09/23/17 ) tree and shrub pollen (Unverified Allergy, Severe, SOB, 09/23/17) Uncoded Allergies: OAT POLLEN (Allergy, Severe, SOB, 09/24/13) Family History Reviewed and significant for cancer. Mother in her 80s with myocardial infarction and diabetes, father in his 80s from myocardial infarction Social History Patient denies any tobacco, alcohol or illicit drug Physical Exam Vital Signs Vital Signs Date Time Temp Pulse Resp B/P (MAP) Pulse Ox O2 Delivery O2 Flow Rate FiO2 09/24/17 08:11 97 Nasal Cannula 2.00 09/24/17 04:00 100.7 110 20 132/80 (97) 94 09/24/17 00:51 96 Nasal Cannula 2.00 09/24/17 00:00 101.5 118 24 184/93 (123) 96 09/23/17 23:53 09/23/17 22:30 97 Nasal Cannula 2.00 09/23/17 22:30 99.0 122 20 152/79 (103) 97 Nasal Cannula 2.00 09/23/17 21:50 98 Nasal Cannula 3.00 09/23/17 21:50 112 22 179/96 (123) 97 Nasal Cannula 2.00 09/23/17 20:14 99.8 122 22 179/85 (116) 97 Nasal Cannula 2.00 09/23/17 19:46 97 Nasal Cannula 2.00 09/23/17 18:52 93 Room Air 09/23/17 18:43 100.2 117 20 164/86 (112) 93 Physical Exam GENERAL: Well-developed, obese with BMI 44.7, in no acute distress. alert and orientated HEENT: Head is normocephalic without any lesions or masses noted. Facial features are symmetric. Eyes: Pupils equal round reactive to light. Extraocular muscles are intact. Conjunctivae were clear. Oropharyngeal: Pharynx without any erythema edema. Tongue is midline without deviation. Buccal mucosa is moist without any masses or lesions NECK: Supple without any masses. Trachea midline no deviation. No JVD, no bruits are appreciated CARDIAC: Regular rhythm, regular rate. S1/S2 are heard. No murmurs gallops or rubs. LUNGS: Diminished breath sounds noted bilaterally, worse on the right upper lung field. No wheeze, rhonchi or rales. No use of accessory muscles on inspiration or expiration. ABDOMEN: Soft, nontender. Nondistended. Bowel sounds heard in all 4 quadrants. No organomegaly or masses. Negative rebound, negative guarding EXTREMITIES: No edema, pulses are equal bilaterally. No cyanosis or clubbing NEUROLOGY: Mood and affect appear appropriate. Cranial nerves II through XII grossly intact. Muscle strength 5/5 in upper and lower extremities bilaterally. Deep tendon reflexes are 2+ in upper and lower extremities bilaterally. Laboratory Laboratory Tests Test 09/23/17 19:37 09/23/17 19:40 09/24/17 05:15 Blood Gas Puncture Site LT RADIAL Blood Gas Patient Temperature 98.6 Blood Gas HCO3 28 Blood Gas Base Excess 4.9 Blood Gas Oxygen Saturation 93 Arterial Blood pH 7.49 Arterial Blood Partial Pressure CO2 37 Arterial Blood Partial Pressure O2 70 Arterial Blood Oxygen Content 17.8 Arterial Blood Carboxyhemoglobin 1.6 Arterial Blood Methemoglobin 1.2 Blood Gas Hemoglobin 13.6 Oxygen Delivery Device ROOM AIR Blood Gas Inspired Oxygen 21 White Blood Count 12.3 13.8 Red Blood Count 5.09 4.39 Hemoglobin 13.9 12.1 Hematocrit 42.1 36.5 Mean Corpuscular Volume 82.7 83.1 Mean Corpuscular Hemoglobin 27.3 27.5 Mean Corpuscular Hemoglobin Concent 33.0 33.1 Red Cell Distribution Width 14.2 14.5 Platelet Count 240 228 Mean Platelet Volume 8.0 8.3 CBC Comment AUTO DIFF AUTO DIFF Differential Total Cells Counted 100 Neutrophils % (Manual) 87 Lymphocytes % 11 Monocytes % 2 Neutrophils # (Manual) 10.7 Differential Comment FINAL DIFF MANUAL AUTO DIFF CONFIRMED Platelet Estimate NORMAL Platelet Morphology Comment NORMAL Red Cell Morphology Comment NORMAL Urine Color YELLOW Urine Turbidity CLEAR Urine pH 7.0 Urine Specific [place] 1.010 Urine Protein NEG Urine Glucose (UA) 1000 OR GREATER Urine Ketones NEG Urine Occult Blood NEG Urine Nitrite NEG Urine Bilirubin NEG Urine Urobilinogen 0.2 Urine Leukocyte Esterase NEG Urine RBC 0-2 Urine WBC 0-2 Urine Squamous Epithelial Cells 0-5 Urine Bacteria NONE Urine Yeast with Hyphae MOD Urine Yeast (Budding) MANY Microscopic Urinalysis Comment CULT NOT INDICATED Blood Urea Nitrogen 7 9 Creatinine 0.71 0.63 Random Glucose 245 253 Total Protein 6.7 5.8 Albumin 2.6 2.2 Calcium Level 8.4 8.0 Alkaline Phosphatase 123 101 Aspartate Amino Transf (AST/SGOT) 12 9 Alanine Aminotransferase (ALT/SGPT) 41 31 Total Bilirubin 0.7 0.9 Sodium Level 134 134 Potassium Level 3.7 3.0 Chloride Level 97 98 Carbon Dioxide Level 31.2 29.6 Anion Gap 6 6 Estimat Glomerular Filtration Rate 83 95 Troponin I LESS THAN 0.02 B-Type Natriuretic Peptide 119 Neutrophils (%) (Auto) 78.1 Lymphocytes (%) (Auto) 16.4 Monocytes (%) (Auto) 5.2 Eosinophils (%) (Auto) 0.2 Basophils (%) (Auto) 0.1 Neutrophils # (Auto) 10.8 Lymphocytes # (Auto) 2.3 Monocytes # (Auto) 0.7 Eosinophils # (Auto) 0.0 Basophils # (Auto) 0.0 Date/Time Source Procedure Growth Status 09/24/17 08:59 Nasal Aspirate Influenza Types A,B Antigen (APOLINAR) Pending Received 09/24/17 08:30 Urine Random Urine Legionella Antigen Pending Received 09/24/17 08:30 Urine Random Urine Streptococcus pneumoniae Antigen (M Pending Received Result Diagram: 09/24/17 0515 09/24/17 0515 Imaging Last Impressions Chest X-Ray 09/23/17 1916 Signed Impressions: Service Date/Time: August 19:21 - CONCLUSION: Persistent increased density/mass in the right upper lung. Oswaldo Vilchis MD Chest CT 09/23/17 0000 Signed Impressions: Service Date/Time: August 21:23 - CONCLUSION: 6 cm cavitary mass in the right upper lobe with other surrounding areas of focal mass or consolidation in the right upper lobe. This distribution within one lobe is most suggestive of inflammatory/infectious process however, it is nonspecific and neoplastic change could have a similar appearance. Oswaldo Vilchis MD Septic Shock Reassessment Septic shock perfusion: reassessment completed Caprini VTE Risk Assessment Caprini VTE Risk Assessment: Mod/High Risk (score >= 2) Caprini Risk Assessment Model Point Value = 1 Point Value = 2 Point Value = 3 Point Value = 5 Age 41-60 Minor surgery BMI > 25 kg/m2 Swollen legs Varicose veins or History of unexplained or recurrent spontaneous Oral contraceptives or hormone replacement Sepsis (< 1 month) Serious lung disease, including pneumonia (< 1 month) Abnormal pulmonary function Acute myocardial infarction Congestive heart failure (< 1 month) History of inflammatory bowel disease Medical patient at bed rest Age 61-74 Arthroscopic surgery Major open surgery (> 45 min) Laparoscopic surgery (> 45 min) Malignancy Confined to bed (> 72 hours) Immobilizing plaster cast Central venous access Age >= 75 History of VTE Family history of VTE Factor V Leiden Prothrombin [id number] Lupus anticoagulant Anticardiolipin antibodies Elevated serum homocysteine Heparin-induced thrombocytopenia Other congenital or acquired thrombophilia Stroke (< 1 month) Elective arthroplasty Hip, pelvis, or leg fracture Acute spinal cord injury (< 1 month) Prophylaxis Regimen Total Risk Factor Score Risk Level Prophylaxis Regimen 0-1 Low Early ambulation 2 Moderate Order ONE of the following: *Sequential Compression Device (SCD) *Heparin 5000 units SQ BID 3-4 Higher Order ONE of the following medications: *Heparin 5000 units SQ TID *Enoxaparin/Lovenox 40 mg SQ daily (WT < 150 kg, CrCl > 30 mL/min) *Enoxaparin/Lovenox 30 mg SQ daily (WT < 150 kg, CrCl > 10-29 mL/min) *Enoxaparin/Lovenox 30 mg SQ BID (WT < 150 kg, CrCl > 30 mL/min) AND/OR *Sequential Compression Device (SCD) 5 or more Highest Order ONE of the following medications: *Heparin 5000 units SQ TID (Preferred with Epidurals) *Enoxaparin/Lovenox 40 mg SQ daily (WT < 150 kg, CrCl > 30 mL/min) *Enoxaparin/Lovenox 30 mg SQ daily (WT < 150 kg, CrCl > 10-29 mL/min) *Enoxaparin/Lovenox 30 mg SQ BID (WT < 150 kg, CrCl > 30 mL/min) AND *Sequential Compression Device (SCD) Assessment and Plan Assessment and Plan Sepsis Patient meets criteria with febrile illness, leukocytosis, tachycardia, right upper lung pneumonia with cavitary lesion Patient started on empirical antibiotics to include vancomycin, Zosyn Obtain influenza testing, streptococcal pneumonia testing, Legionella testing , sputum culture, blood cultures Urinalysis was unremarkable Right upper lung cavitary lesion/pneumonia I reviewed x-rays and it appears this may be pneumonia that is clearing, however other etiologies need to be ruled out Sputum cultures have been requested Continue O2 supplementation to maintain O2 sats greater than 92% Continue Symbicort Continue nebulizer treatment Jerod Global Regulatory Affairs Manager has been consulted Discussed with space systems operations superintendent who indicated that patient will require bronchoscopy, will need to be transferred to the main hospital to make arrangements Hyperglycemia, No history of diabetes, could be related to steroids Check hemoglobin A1c Start Accu-Cheks with sliding scale insulin Diabetic diet Hypokalemia Continue monitor and replete as needed DVT prevention Sequential compression devices, avoid chemical prophylaxis as a possible need for bronchoscopy Physician Certification 2 Midnight Certification Type: Admission for Inpatient Services Order for Inpatient Services The services are ordered in accordance with Medicare regulations or non- Medicare payer requirements, as applicable. In the case of services not specified as inpatient-only, they are appropriately provided as inpatient services in accordance with the 2-midnight benchmark. Estimated LOS (days): 3 days is the estimated time the patient will need to remain in the hospital, assuming treatment plan goals are met and no additional complications. Post-Hospital Plan: Not yet determined Didier Burton Sep 24, 2017 09:53
[2017-09-24 16:24] LABS: HEMOGLOBIN A1C 7.4 % (4.3-6.0)
[2017-09-24] MEDS: guaiFENesin/CODEINE SYRUP 200 MG/20 MG/10 ML CUP PO PRN ×2 (18:12→22:55)
[2017-09-25] VITALS (17 sets, daily range): BP systolic 131–172; BP diastolic 73–90; PULSE 80–112; RESP 18–20; TEMP 98–99.2; O2SAT 91–98
[2017-09-25] MEDS: VANCOMYCIN INJ 1,400 MG in SODIUM CHLORID 0.9% 500 ML INJ 500 ML IV SCH ×2 (01:40→21:10)
[2017-09-25] MEDS: PIPERACIL-TAZO 4.5 GM PREMIX 100 ML IV SCH ×3 (01:41→14:00)
[2017-09-25] MEDS: guaiFENesin/CODEINE SYRUP 200 MG/20 MG/10 ML CUP PO PRN ×3 (04:43→18:36)
[2017-09-25] MEDS: ACETAMINOPHEN/HYDROcodone 325 MG/5 MG TAB PO PRN ×3 (04:44→18:07)
[2017-09-25 07:21] LABS: AUTOMATED NEUTROPHIL # 9.6 TH/MM3 (1.8-7.7); BASOPHIL % 0.1 % (0.0-2.0); EOSINOPHIL # 0.1 TH/MM3 (0-0.4); EOSINOPHIL % 0.6 % (0.0-4.0); HEMATOCRIT 35.1 % (35.0-46.0); LYMPH % 15.8 % (9.0-44.0); MEAN CELL VOLUME 82.7 FL (80.0-100.0); MEAN CORPUSCULAR HEMOGLOBIN 28.3 PG (27.0-34.0); MEAN CORPUSCULAR HGB CONC 34.2 % (32.0-36.0); MEAN PLATELET VOLUME 8.1 FL (7.0-11.0); MONO % 6.5 % (0.0-8.0); MONOCYTE # 0.8 TH/MM3 (0-0.9); PLATELET COUNT 212 TH/MM3 (150-450); RED BLOOD COUNT 4.24 MIL/MM3 (4.00-5.30); RED CELL DISTRIBUTION WIDTH 14.5 % (11.6-17.2); WHITE BLOOD COUNT 12.5 TH/MM3 (4.0-11.0)
[2017-09-25] MEDS: RESP: ALBUTEROL 2.5 MG/IPRATROPIUM 0.5 MG NEB (SCH) NEB ×3 (07:22→21:08)
[2017-09-25 07:41] LABS: BICARBONATE 28.7 MEQ/L (21.0-32.0); MAGNESIUM 1.7 MG/DL (1.5-2.5)
[2017-09-25 07:42] LABS: CALCIUM 7.7 MG/DL (8.5-10.1)
[2017-09-25 07:44] LABS: CREATININE 0.55 MG/DL (0.50-1.00)
[2017-09-25] MEDS: INSULIN ASPART SUPPLEMENTAL SCALE SQ SCH ×4 (08:00→21:12)
--- NOTE | 2017-09-25 08:18 | HHI.PR ---
Subjective Remarks Patient seen and examined today for follow-up on right upper lung consolidative mass. Patient indicates that she believes that her breathing is improved this morning as compared to yesterday. Awaiting transfer to the main hospital for bronchoscopy. Patient remains afebrile Objective Vitals Vital Signs Date Time Temp Pulse Resp B/P (MAP) Pulse Ox O2 Delivery O2 Flow Rate FiO2 09/25/17 07:23 95 Nasal Cannula 2.00 09/25/17 04:58 98.8 104 20 165/86 (112) 94 09/25/17 00:16 98.9 102 18 131/84 (100) 93 09/24/17 21:03 99.9 98 20 150/69 (96) 95 09/24/17 19:26 98 Nasal Cannula 2.00 09/24/17 16:24 50 09/24/17 16:00 98.9 92 18 120/62 (81) 95 09/24/17 12:00 98.0 88 20 130/68 (88) 96 I/O 09/24/17 09/24/17 09/24/17 09/25/17 09/25/17 09/25/17 07:00 15:00 23:00 07:00 15:00 23:00 Intake Total 240 ml 3180 ml Balance 240 ml 3180 ml Intake Oral 240 ml IV Total 3180 ml # Voids 2 4 # Bowel Movements 0 0 Result Diagram: 09/25/17 0600 09/25/17 0600 Objective Remarks GENERAL: Well-developed, obese with BMI 44.7, in no acute distress. alert and orientated HEENT: Head is normocephalic without any lesions or masses noted. Facial features are symmetric. Eyes: Extraocular muscles are intact. Conjunctivae were clear. NECK: Supple without any masses. Trachea midline no deviation. No JVD, CARDIAC: Regular rhythm, regular rate. S1/S2 are heard. No murmurs gallops or rubs. LUNGS: Diminished breath sounds noted bilaterally, worse on the right upper lung field. No wheeze, rhonchi or rales. No use of accessory muscles on inspiration or expiration. ABDOMEN: Soft, nontender. Nondistended. Bowel sounds heard in all 4 quadrants. No organomegaly or masses. Negative rebound, negative guarding EXTREMITIES: No edema, pulses are equal bilaterally. No cyanosis or clubbing NEUROLOGY: Mood and affect appear appropriate. Cranial nerves II through XII grossly intact. Moving all extremities, speech is clear Urinary Catheter: No Vascular Central Line Catheter: No A/P Assessment and Plan Sepsis, resolved Patient meets criteria with febrile illness, leukocytosis, tachycardia, right upper lung pneumonia with cavitary lesion Patient started on empirical antibiotics to include vancomycin, Zosyn Influenza testing, streptococcal pneumonia testing, Legionella testing all were negative, sputum culture shows mixed natasha without any predominant organism, blood cultures are pending Urinalysis was unremarkable Right upper lung cavitary lesion/pneumonia I reviewed x-rays and it appears this may be pneumonia that is clearing, however other etiologies need to be ruled out Sputum cultures have been requested Continue O2 supplementation to maintain O2 sats greater than 92% Continue Symbicort Continue nebulizer treatment [employer] User Experience Strategist has been consulted Discussed with hospital educator who indicated that patient will require bronchoscopy, awaiting transfer to the main hospital for procedure Hyperglycemia, No history of diabetes, could be related to steroids Hemoglobin A1c 7.4 Accu-Cheks with sliding scale insulin Diabetic diet Diabetic/dietary consultation Hypokalemia Continue monitor and replete as needed DVT prevention Sequential compression devices, avoid chemical prophylaxis as a possible need for bronchoscopy Didier Burton Sep 25, 2017 08:18
[2017-09-25] MEDS ORDERED: POTASSIUM CHLORIDE 20 MEQ CONTROLLED RELEASE TAB PO ONE (08:30)
[2017-09-25] MEDS: BUDESONIDE-FORMOTEROL 160/4.5 MCG INHALER INH SCH ×2 (09:00→21:00)
[2017-09-25] MEDS: NS + KCL 20 MEQ INJ 1,000 ML IV SCH ×2 (11:16→18:06)
[2017-09-25] MEDS: DOCUSATE SODIUM 50 MG/SENNA 8.6 MG TAB PO SCH ×2 (11:18→21:00)
[2017-09-25] MEDS: SODIUM CHLORIDE 0.9% FLUSH 10 ML FLUSH IV FLUSH SCH ×2 (11:18→21:00)
[2017-09-25] MEDS: guaiFENesin E.R. 600 MG TAB PO SCH ×2 (11:18→21:11)
[2017-09-25] MEDS ORDERED: PHARMACY ORDERED LAB ONE (12:45)
[2017-09-25] MEDS: RESP: ALBUTEROL 2.5 MG/IPRATROPIUM 0.5 MG NEB (PRN) NEB (16:05)
[2017-09-25] MEDS: ENALAPRILAT 1.25 MG/ML VIAL IV PUSH PRN (19:12)
[2017-09-26] VITALS (9 sets, daily range): BP systolic 128–165; BP diastolic 73–91; PULSE 79–103; RESP 16–22; TEMP 97.9–98.9; O2SAT 95–98
[2017-09-26] MEDS: VANCOMYCIN INJ 1,400 MG in SODIUM CHLORID 0.9% 500 ML INJ 500 ML IV SCH ×2 (00:26→15:11)
[2017-09-26] MEDS: PIPERACIL-TAZO 4.5 GM PREMIX 100 ML IV SCH ×5 (00:27→21:22)
[2017-09-26] MEDS: guaiFENesin/CODEINE SYRUP 200 MG/20 MG/10 ML CUP PO PRN ×4 (00:35→21:28)
[2017-09-26] MEDS: ACETAMINOPHEN/HYDROcodone 325 MG/5 MG TAB PO PRN ×4 (00:39→21:26)
[2017-09-26] MEDS: MORPHINE SULFATE 2 MG/ML SYRINGE IV PUSH PRN (03:05)
[2017-09-26 05:29] LABS: AUTOMATED NEUTROPHIL # 7.7 TH/MM3 (1.8-7.7); BASOPHIL % 0.3 % (0.0-2.0); EOSINOPHIL # 0.1 TH/MM3 (0-0.4); EOSINOPHIL % 1.1 % (0.0-4.0); HEMATOCRIT 33.9 % (35.0-46.0); HEMOGLOBIN 11.3 GM/DL (11.6-15.3); LYMPH % 19.8 % (9.0-44.0); LYMPHOCYTE # 2.1 TH/MM3 (1.0-4.8); MEAN CELL VOLUME 83.5 FL (80.0-100.0); MEAN CORPUSCULAR HEMOGLOBIN 27.8 PG (27.0-34.0); MEAN CORPUSCULAR HGB CONC 33.3 % (32.0-36.0); MEAN PLATELET VOLUME 7.6 FL (7.0-11.0); MONO % 6.4 % (0.0-8.0); MONOCYTE # 0.7 TH/MM3 (0-0.9); NEUT % 72.4 % (16.0-70.0); PLATELET COUNT 213 TH/MM3 (150-450); RED BLOOD COUNT 4.06 MIL/MM3 (4.00-5.30); RED CELL DISTRIBUTION WIDTH 15.5 % (11.6-17.2); WHITE BLOOD COUNT 10.6 TH/MM3 (4.0-11.0)
[2017-09-26 05:50] LABS: BICARBONATE 28.7 MEQ/L (21.0-32.0); CALCIUM 7.8 MG/DL (8.5-10.1); CREATININE 0.54 MG/DL (0.50-1.00)
[2017-09-26] MEDS: RESP: ALBUTEROL 2.5 MG/IPRATROPIUM 0.5 MG NEB (SCH) NEB ×3 (08:22→20:27)
[2017-09-26] MEDS: DOCUSATE SODIUM 50 MG/SENNA 8.6 MG TAB PO SCH ×2 (09:00→21:26)
[2017-09-26] MEDS: guaiFENesin E.R. 600 MG TAB PO SCH ×2 (09:13→21:26)
[2017-09-26] MEDS: INSULIN ASPART SUPPLEMENTAL SCALE SQ SCH ×4 (09:13→21:35)
[2017-09-26] MEDS: BUDESONIDE-FORMOTEROL 160/4.5 MCG INHALER INH SCH ×2 (09:59→21:27)
--- NOTE | 2017-09-26 09:59 | HHI.PR ---
Subjective Remarks Patient reports feeling better this morning. Breathing more comfortable. Still has a significant cough. Objective Vitals Vital Signs Date Time Temp Pulse Resp B/P (MAP) Pulse Ox O2 Delivery O2 Flow Rate FiO2 09/26/17 08:22 97 Nasal Cannula 2.00 09/26/17 08:13 98.8 91 18 144/82 (102) 97 09/26/17 05:02 97.9 79 18 143/78 (99) 96 09/26/17 03:10 18 09/26/17 01:36 18 09/26/17 00:15 98.7 103 22 152/91 (111) 95 09/25/17 23:00 99.1 109 154/90 (111) 94 09/25/17 21:09 98 Nasal Cannula 2.00 09/25/17 19:00 103 09/25/17 19:00 98.4 108 156/88 (110) 91 09/25/17 18:00 112 09/25/17 17:00 102 09/25/17 16:06 94 Nasal Cannula 2.00 09/25/17 16:00 96 09/25/17 15:15 98.0 100 20 168/88 (114) 98 09/25/17 15:00 90 09/25/17 14:46 98.0 80 20 172/82 (112) 98 09/25/17 14:30 90 09/25/17 14:30 98.0 80 20 172/82 (112) 98 09/25/17 12:00 98.2 96 20 137/76 (96) 96 09/25/17 12:00 99.2 96 20 137/76 (96) 96 I/O 09/25/17 09/25/17 09/25/17 09/26/17 09/26/17 09/26/17 07:00 15:00 23:00 07:00 15:00 23:00 Intake Total 480 ml 600 ml Balance 480 ml 600 ml Intake Oral 480 ml 600 ml # Voids 4 3 1 # Bowel Movements 0 Result Diagram: 09/26/17 0459 09/26/17 0459 Objective Remarks GENERAL: Obese female, in no apparent distress. CARDIOVASCULAR: Normal rate and regular rhythm without murmurs, gallops, or rubs. RESPIRATORY: Some rhonchi on the right upper quadrant. Otherwise clear to auscultation GASTROINTESTINAL: Abdomen soft, non-tender, non-distended. Normal active bowel sounds MUSCULOSKELETAL: Extremities without cyanosis, or edema. NEURO: Alert & Oriented x4 to person, place, time, situation. Moves all ext x4 PSYCH: Appropriate mood and affect. A/P Problem List: (1) Sepsis ICD Code: A41.9 - Sepsis, unspecified organism (2) Cavitary lesion of lung ICD Code: J98.4 - Other disorders of lung Status: Acute (3) COPD exacerbation ICD Code: J44.1 - Chronic obstructive pulmonary disease with (acute) exacerbation Status: Acute (4) Mass of upper lobe of right lung ICD Code: R91.8 - Other nonspecific abnormal finding of lung field Assessment and Plan Sepsis secondary to pneumonia, resolving Patient meets criteria with febrile illness, leukocytosis, tachycardia, right upper lung pneumonia with cavitary lesion Plan to downgrade antibiotics tomorrow pending findings of Bronchoscopy Influenza testing, streptococcal pneumonia testing, Legionella testing all were negative, sputum culture shows mixed natasha without any predominant organism, blood cultures so far negative Right upper lung cavitary lesion/pneumonia/COPD exacerbation Pneumonia resolving. Continue O2 supplementation to maintain O2 sats greater than 92% Continue Symbicort Continue nebulizer treatment Jerod Proof Inspector has been consulted who indicated that patient will require bronchoscopy. Will keep NPO after midnight. Hyperglycemia, No history of diabetes, but she has not followed with a PCP. Suspect undiagnosed DM. Hemoglobin A1c 7.4 Accu-Cheks with sliding scale insulin Diabetic diet Diabetic/dietary consultation DVT prevention Sequential compression devices, avoid chemical prophylaxis as a possible need for bronchoscopy Leela Tony MD Sep 26, 2017 09:59
[2017-09-26] MEDS: SODIUM CHLORIDE 0.9% FLUSH 10 ML FLUSH IV FLUSH SCH ×2 (10:00→21:00)
[2017-09-26] MEDS ORDERED: PHARMACY ORDERED LAB ONE (12:45)
[2017-09-26] MEDS: NS + KCL 20 MEQ INJ 1,000 ML IV SCH ×2 (13:23→19:35)
[2017-09-26] MEDS: NYSTATIN SUSP 500,000 U/5 ML CUP SWISH-SWAL SCH ×3 (14:51→21:27)
[2017-09-26] MEDS ORDERED: NEBULIZER1 MI1 (15:42)
[2017-09-26] MEDS ORDERED: DEXT 5%-NACL 0.45% 1000 ML INJ 1,000 ML IV SCH (17:01)
[2017-09-26] MEDS ORDERED: RESP: ALBUTEROL CONC 2.5 MG/0.5 ML NEB NEB SCH (17:15)
[2017-09-26] MEDS ORDERED: RESP: LIDOCAINE HCL 4% PF 5 ML NEB NEB SCH (17:15)
--- NOTE | 2017-09-26 17:26 | MB ---
cc: Daly Kauffman MD DATE: 09/26/2017 REASON FOR CONSULTATION: Cavitary mass, right upper lung. HISTORY OF PRESENT ILLNESS: The patient is a 62-year-old female with a known history of COPD as well as history of hypertension and chronic pain. The patient has been receiving medication for right upper lobe pneumonia. Followup CT scan of the chest with cavitation, right upper lung. I am asked to see the patient at this time for same. She denies history of fever, chills, hemoptysis, has no history of TB or previous industrial exposure. PAST MEDICAL HISTORY: That of COPD, hypertension, and chronic pain as discussed above. PAST SURGICAL HISTORY: She did have cryosurgery for cervical cancer, tubal ligation, left knee surgery and T and A as a child. MEDICATIONS AT HOME: Include prednisone, tapering dose Augmentin, Zithromax. She is wheelchair bound, uses Advair and ProAir at home. ALLERGIES: TETANUS TOXOID, SEVERAL POLLENS. FAMILY HISTORY: Noncontributory. SOCIAL HISTORY: Used to smoke, not at present. Does not use drugs or drink any alcohol. SYSTEMS REVIEW: A 12-point review of systems is as per HPI and past history, otherwise negative. PHYSICAL EXAMINATION: GENERAL: The patient is alert. VITAL SIGNS: Temperature 100, pulse 90, respiration 20, blood pressure 170/80. HEENT: Unremarkable. Eyes without icterus. NECK: Without adenopathy, thyroid enlargement. Central trachea. CHEST: Few scattered rhonchi, right lung. CARDIAC: PMI distant. S1, S2 audible. No murmur, no rub. ABDOMEN: Lax, bowel sounds audible. EXTREMITIES: No clubbing, cyanosis or edema. SKIN: Normal. No lymphadenopathy. LABORATORY DATA: Arterial blood gas: PH 7.49, pCO2 of 37, pO2 of 70 on room air. White count 12,000, hemoglobin 13, hematocrit 42, platelets 240,000. Sodium 134, potassium 3.0, BUN 9, creatinine 0.6, glucose 253. A CT scan of the chest with cavitary mass, right upper lung. IMPRESSION: 1. Cavitary mass, right upper lung. 2. Chronic obstructive pulmonary disease. 3. Chronic pain. PLAN: The patient to continue antibiotic therapy. Infectious disease to see patient and follow. Will proceed with bronchoscopy for possible underlying malignancy or chronic inflammatory process that would explain the cavitary change. Will follow up her care along with you and depending on progress, proceed further. I do thank you for asking me to partake in Ms. Schumacher's care. Daly Kauffman MD WWW/LINH , 05:01 PM , 05:25 PM
[2017-09-26] MEDS: PHENOL 1.4% SOLN 180 ML BTL OROPHARYNG PRN ×2 (21:22→23:24)
[2017-09-26] MEDS: predniSONE 20 MG TAB PO SCH (21:26)
[2017-09-26] MEDS: OXYBUTYNIN CHLORIDE 5 MG TAB PO SCH (22:13)
[2017-09-27] MEDS: VANCOMYCIN INJ 1,400 MG in SODIUM CHLORID 0.9% 500 ML INJ 500 ML IV SCH ×2 (01:52→12:47)
[2017-09-27] MEDS: PHENOL 1.4% SOLN 180 ML BTL OROPHARYNG PRN ×2 (01:53→05:22)
[2017-09-27] MEDS: PIPERACIL-TAZO 4.5 GM PREMIX 100 ML IV SCH ×4 (03:12→20:13)
[2017-09-27] MEDS: ACETAMINOPHEN/HYDROcodone 325 MG/5 MG TAB PO PRN ×2 (05:21→20:14)
[2017-09-27] MEDS: OXYBUTYNIN CHLORIDE 5 MG TAB PO SCH ×3 (05:21→16:34)
[2017-09-27 05:23] VITALS: BP 156/76; PULSE 75; RESP 16; TEMP 97.9; O2SAT 96
[2017-09-27] MEDS: guaiFENesin/CODEINE SYRUP 200 MG/20 MG/10 ML CUP PO PRN ×3 (06:00→20:12)
[2017-09-27] MEDS: RESP: ALBUTEROL 2.5 MG/IPRATROPIUM 0.5 MG NEB (SCH) NEB ×3 (07:35→20:46)
[2017-09-27 07:37] VITALS: O2SAT 98
[2017-09-27 07:46] LABS: HEMATOCRIT 36.1 % (35.0-46.0); MEAN CELL VOLUME 84.3 FL (80.0-100.0); MEAN CORPUSCULAR HGB CONC 33.2 % (32.0-36.0); MEAN PLATELET VOLUME 7.8 FL (7.0-11.0); PLATELET COUNT 253 TH/MM3 (150-450); RED BLOOD COUNT 4.29 MIL/MM3 (4.00-5.30); RED CELL DISTRIBUTION WIDTH 15.2 % (11.6-17.2)
[2017-09-27 07:52] LABS: BICARBONATE 29.6 MEQ/L (21.0-32.0); CALCIUM 8.4 MG/DL (8.5-10.1); CREATININE 0.6 MG/DL (0.50-1.00)
[2017-09-27] MEDS: INSULIN ASPART SUPPLEMENTAL SCALE SQ SCH ×4 (08:00→20:15)
[2017-09-27 08:46] VITALS: BP 132/68; PULSE 72; RESP 20; TEMP 97.9; O2SAT 93
[2017-09-27] MEDS: SODIUM CHLORIDE 0.9% FLUSH 10 ML FLUSH IV FLUSH SCH ×2 (09:00→20:13)
[2017-09-27] MEDS: BUDESONIDE-FORMOTEROL 160/4.5 MCG INHALER INH SCH ×2 (09:00→20:13)
[2017-09-27] MEDS: NS + KCL 20 MEQ INJ 1,000 ML IV SCH ×2 (10:19→20:14)
[2017-09-27] MEDS: NYSTATIN SUSP 500,000 U/5 ML CUP SWISH-SWAL SCH ×4 (10:19→20:12)
[2017-09-27] MEDS: guaiFENesin E.R. 600 MG TAB PO SCH ×2 (10:20→20:13)
[2017-09-27] MEDS: DOCUSATE SODIUM 50 MG/SENNA 8.6 MG TAB PO SCH ×2 (10:20→20:15)
[2017-09-27] MEDS: predniSONE 20 MG TAB PO SCH ×2 (10:20→20:12)
[2017-09-27] MEDS ORDERED: RESP: LIDOCAINE HCL 4% PF 5 ML NEB NEB SCH (11:45)
[2017-09-27] MEDS ORDERED: RESP: ALBUTEROL CONC 2.5 MG/0.5 ML NEB NEB SCH (11:45)
--- NOTE | 2017-09-27 12:02 | HHI.PR ---
Subjective Remarks Patient reports having a persistent cough. No increased in shortness of breath. Objective Vitals Vital Signs Date Time Temp Pulse Resp B/P (MAP) Pulse Ox O2 Delivery O2 Flow Rate FiO2 09/27/17 08:46 97.9 72 20 132/68 (89) 93 09/27/17 07:37 98 Nasal Cannula 2.00 09/27/17 06:20 18 09/27/17 05:23 97.9 75 16 156/76 (102) 96 09/26/17 23:17 98.7 93 22 128/73 (91) 95 09/26/17 20:37 98.4 103 20 165/85 (111) 97 09/26/17 20:26 97 21 09/26/17 16:00 98.9 100 18 157/89 (111) 98 09/26/17 13:20 98.9 90 16 136/74 (94) 96 I/O 09/26/17 09/26/17 09/26/17 09/27/17 09/27/17 09/27/17 07:00 15:00 23:00 07:00 15:00 23:00 Intake Total 600 ml 2100 ml 900 ml Output Total 1950 ml 5050 ml Balance 600 ml 150 ml -4150 ml Intake Oral 600 ml 2100 ml 900 ml Output Urine Total 1950 ml 5050 ml # Voids 1 2 # Bowel Movements 1 Result Diagram: 09/27/17 0530 09/27/17 0530 Objective Remarks GENERAL: Obese female, in no apparent distress. CARDIOVASCULAR: Normal rate and regular rhythm without murmurs, gallops, or rubs. RESPIRATORY: Some rhonchi on the right upper quadrant. Otherwise clear to auscultation GASTROINTESTINAL: Abdomen soft, non-tender, non-distended. Normal active bowel sounds MUSCULOSKELETAL: Extremities without cyanosis, or edema. NEURO: Alert & Oriented x4 to person, place, time, situation. Moves all ext x4 PSYCH: Appropriate mood and affect. A/P Problem List: (1) Sepsis ICD Code: A41.9 - Sepsis, unspecified organism (2) Cavitary lesion of lung ICD Code: J98.4 - Other disorders of lung Status: Acute (3) COPD exacerbation ICD Code: J44.1 - Chronic obstructive pulmonary disease with (acute) exacerbation Status: Acute (4) Mass of upper lobe of right lung ICD Code: R91.8 - Other nonspecific abnormal finding of lung field Assessment and Plan Sepsis secondary to pneumonia, resolving Patient meets criteria with febrile illness, leukocytosis, tachycardia, right upper lung pneumonia with cavitary lesion Plan to downgrade antibiotics pending findings of Bronchoscopy Influenza testing, streptococcal pneumonia testing, Legionella testing all were negative, sputum culture shows mixed natasha without any predominant organism, blood cultures so far negative Right upper lung cavitary lesion/pneumonia/COPD exacerbation Pneumonia resolving. 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 Hyperglycemia, No history of diabetes, but she has not followed with a PCP. Suspect undiagnosed DM. Hemoglobin A1c 7.4 Accu-Cheks with sliding scale insulin Diabetic diet. Patient counseled. Diabetic/dietary consultation DVT prevention Sequential compression devices, avoid chemical prophylaxis for upcoming bronchoscopy Leela Tony MD Sep 27, 2017 12:02
--- NOTE | 2017-09-27 17:10 | HHI.PR ---
Subjective Remarks alert no SOB Objective Vital Signs Date Time Temp Pulse Resp B/P (MAP) Pulse Ox O2 Delivery O2 Flow Rate FiO2 09/27/17 08:46 97.9 72 20 132/68 (89) 93 09/27/17 07:37 98 Nasal Cannula 2.00 09/27/17 06:20 18 09/27/17 05:23 97.9 75 16 156/76 (102) 96 09/26/17 23:17 98.7 93 22 128/73 (91) 95 09/26/17 20:37 98.4 103 20 165/85 (111) 97 09/26/17 20:26 97 21 I/O 09/26/17 09/26/17 09/26/17 09/27/17 09/27/17 09/27/17 07:00 15:00 23:00 07:00 15:00 23:00 Intake Total 600 ml 2100 ml 900 ml Output Total 1950 ml 5050 ml Balance 600 ml 150 ml -4150 ml Intake Oral 600 ml 2100 ml 900 ml Output Urine Total 1950 ml 5050 ml # Voids 1 2 # Bowel Movements 1 Result Diagram: 09/27/17 0530 09/27/17 0530 Objective Remarks GENERAL: SKIN: Warm and dry. HEAD: Atraumatic. Normocephalic. EYES: Pupils equal and round. No scleral icterus. No injection or drainage. ENT: No nasal bleeding or discharge. Mucous membranes pink and moist. NECK: Trachea midline. No JVD. CARDIOVASCULAR: Regular rate and rhythm. RESPIRATORY: No accessory muscle use. Clear to auscultation. Breath sounds equal bilaterally. GASTROINTESTINAL: Abdomen soft, non-tender, nondistended. Hepatic and splenic margins not palpable. MUSCULOSKELETAL: Extremities without clubbing, cyanosis, or edema. No obvious deformities. NEUROLOGICAL: Awake and alert. No obvious cranial nerve deficits. Motor grossly within normal limits. Five out of 5 muscle strength in the arms and legs. Normal speech. PSYCHIATRIC: Appropriate mood and affect; insight and judgment normal. Assessment and Plan Assessment and Plan CAVITARY MASS LUCILA COPD PLAN BRONCHOSCOPY Daly Gaines MD Sep 27, 2017 17:09
[2017-09-27 17:58] VITALS: BP 157/83; PULSE 89; RESP 20; TEMP 98; O2SAT 94
[2017-09-27 20:00] VITALS: BP 165/84; PULSE 93; RESP 16; TEMP 98.5; O2SAT 94
[2017-09-27 20:48] VITALS: O2SAT 98
[2017-09-28] VITALS (9 sets, daily range): BP systolic 135–172; BP diastolic 68–97; PULSE 68–87; RESP 16–20; TEMP 97.8–98.5; O2SAT 94–98
[2017-09-28] MEDS: OXYBUTYNIN CHLORIDE 5 MG TAB PO SCH ×5 (00:21→23:49)
[2017-09-28] MEDS: VANCOMYCIN INJ 1,400 MG in SODIUM CHLORID 0.9% 500 ML INJ 500 ML IV SCH (00:27)
[2017-09-28] MEDS ORDERED: PHARMACY ORDERED LAB ONE (00:45)
[2017-09-28] MEDS: ACETAMINOPHEN/HYDROcodone 325 MG/5 MG TAB PO PRN ×5 (00:56→23:49)
[2017-09-28] MEDS: PIPERACIL-TAZO 4.5 GM PREMIX 100 ML IV SCH ×2 (02:30→10:29)
[2017-09-28] MEDS: guaiFENesin/CODEINE SYRUP 200 MG/20 MG/10 ML CUP PO PRN ×3 (02:30→18:20)
[2017-09-28 07:13] LABS: CREATININE 0.6 MG/DL (0.50-1.00)
--- NOTE | 2017-09-28 09:10 | HHI.PR ---
Subjective Remarks alert no SOB at rest Objective Vital Signs Date Time Temp Pulse Resp B/P (MAP) Pulse Ox O2 Delivery O2 Flow Rate FiO2 09/28/17 07:26 97.8 74 20 172/97 (122) 97 09/28/17 00:18 97.9 87 16 160/84 (109) 96 09/27/17 20:48 98 Nasal Cannula 2.00 09/27/17 20:00 98.5 93 16 165/84 (111) 94 09/27/17 17:58 98.0 89 20 157/83 (107) 94 I/O 09/27/17 09/27/17 09/27/17 09/28/17 09/28/17 09/28/17 07:00 15:00 23:00 07:00 15:00 23:00 Intake Total 900 ml 1600 ml Output Total 5050 ml 600 ml 2000 ml Balance -4150 ml -600 ml -400 ml Intake Oral 900 ml IV Total 1600 ml Output Urine Total 5050 ml 600 ml 2000 ml Result Diagram: 09/27/17 0530 09/28/17 0617 Objective Remarks GENERAL: SKIN: Warm and dry. HEAD: Atraumatic. Normocephalic. EYES: Pupils equal and round. No scleral icterus. No injection or drainage. ENT: No nasal bleeding or discharge. Mucous membranes pink and moist. NECK: Trachea midline. No JVD. CARDIOVASCULAR: Regular rate and rhythm. RESPIRATORY: No accessory muscle use. Clear to auscultation. Breath sounds equal bilaterally. GASTROINTESTINAL: Abdomen soft, non-tender, nondistended. Hepatic and splenic margins not palpable. MUSCULOSKELETAL: Extremities without clubbing, cyanosis, or edema. No obvious deformities. NEUROLOGICAL: Awake and alert. No obvious cranial nerve deficits. Motor grossly within normal limits. Five out of 5 muscle strength in the arms and legs. Normal speech. PSYCHIATRIC: Appropriate mood and affect; insight and judgment normal. Assessment and Plan Assessment and Plan CAVITARY MASS right UL COPD PLAN BRONCHOSCOPY today continue antibx Daly Kauffman MD Sep 28, 2017 09:10
[2017-09-28] MEDS ORDERED: DO NOT ADM ANY ANTICOAGULANT DRUGS PRN (09:40)
[2017-09-28] MEDS ORDERED: *morphine SULFATE 4 MG/ML PERIprocedure ONLY ONE (09:45)
[2017-09-28] MEDS ORDERED: *RESP: ALBUTEROL 2.5 MG/3 ML NEB (PRN) PERIprocedural Use ONLY NEB ONE (09:45)
[2017-09-28] MEDS: INSULIN ASPART SUPPLEMENTAL SCALE SQ SCH ×4 (10:28→20:14)
[2017-09-28] MEDS: SODIUM CHLORIDE 0.9% FLUSH 10 ML FLUSH IV FLUSH SCH ×2 (10:29→20:06)
[2017-09-28] MEDS: predniSONE 20 MG TAB PO SCH ×2 (10:29→20:06)
[2017-09-28] MEDS: NYSTATIN SUSP 500,000 U/5 ML CUP SWISH-SWAL SCH ×4 (10:29→20:06)
[2017-09-28] MEDS: guaiFENesin E.R. 600 MG TAB PO SCH ×2 (10:29→20:06)
[2017-09-28] MEDS: DOCUSATE SODIUM 50 MG/SENNA 8.6 MG TAB PO SCH ×2 (10:29→20:01)
[2017-09-28] MEDS: BUDESONIDE-FORMOTEROL 160/4.5 MCG INHALER INH SCH ×2 (10:30→20:07)
[2017-09-28] MEDS: NS + KCL 20 MEQ INJ 1,000 ML IV SCH (10:38)
--- NOTE | 2017-09-28 11:01 | HHI.PR ---
Subjective Remarks Patient seen after bronchoscopy. She is having a spasmatic cough. Denies increased in shortness of breath. She inquired about when she can go home. Objective Vitals Vital Signs Date Time Temp Pulse Resp B/P (MAP) Pulse Ox O2 Delivery O2 Flow Rate FiO2 09/28/17 10:31 98.5 83 18 145/68 (93) 95 09/28/17 09:48 91 25 108/75 (86) 97 Nasal Cannula 3 09/28/17 09:39 97.0 87 28 129/75 (93) 97 Nasal Cannula 3 09/28/17 07:26 97.8 74 20 172/97 (122) 97 09/28/17 00:18 97.9 87 16 160/84 (109) 96 09/27/17 20:48 98 Nasal Cannula 2.00 09/27/17 20:00 98.5 93 16 165/84 (111) 94 09/27/17 17:58 98.0 89 20 157/83 (107) 94 I/O 09/27/17 09/27/17 09/27/17 09/28/17 09/28/17 09/28/17 07:00 15:00 23:00 07:00 15:00 23:00 Intake Total 900 ml 1600 ml Output Total 5050 ml 600 ml 2000 ml Balance -4150 ml -600 ml -400 ml Intake Oral 900 ml IV Total 1600 ml Output Urine Total 5050 ml 600 ml 2000 ml Result Diagram: 09/27/17 0530 09/28/17 0617 Objective Remarks GENERAL: Obese female, coughing. CARDIOVASCULAR: Normal rate and regular rhythm without murmurs, gallops, or rubs. RESPIRATORY: Some rhonchi on the right upper lung shirley. Otherwise clear to auscultation GASTROINTESTINAL: Abdomen soft, non-tender, non-distended. Normal active bowel sounds MUSCULOSKELETAL: Extremities without cyanosis, or edema. NEURO: Alert & Oriented x4 to person, place, time, situation. Moves all ext x4 PSYCH: Appropriate mood and affect. A/P Problem List: (1) Sepsis ICD Code: A41.9 - Sepsis, unspecified organism (2) Cavitary lesion of lung ICD Code: J98.4 - Other disorders of lung Status: Acute (3) COPD exacerbation ICD Code: J44.1 - Chronic obstructive pulmonary disease with (acute) exacerbation Status: Acute (4) Mass of upper lobe of right lung ICD Code: R91.8 - Other nonspecific abnormal finding of lung field Assessment and Plan Sepsis secondary to pneumonia, resolving Patient meets criteria with febrile illness, leukocytosis, tachycardia, right upper lung pneumonia with cavitary lesion Influenza testing, streptococcal pneumonia testing, Legionella testing all were negative, S/P bronchoscopy on 09/[address] Snow which showed Severe tracheobronchitis mainly on the right tracheobronchial tree. No obstruction, no mass lesion. Samples obtained as above. Bronchial washing studies pending. sputum culture from 09/24 grew MRSA. Sensitivity profile noted. Patient transitioned to Clindamycin. Right upper lung cavitary lesion/pneumonia/COPD exacerbation Pneumonia resolving. Continue O2 supplementation to maintain O2 sats greater than 92% Continue Symbicort Continue nebulizer treatment Acapella. Repeat CXR in AM. Hyperglycemia, No history of diabetes, but she has not followed with a PCP. Suspect undiagnosed DM. Hemoglobin A1c 7.4 Accu-Cheks with sliding scale insulin Diabetic diet. Patient counseled. Diabetic/dietary consultation Consider discharge on Metformin. DVT prevention Sequential compression devices Discharge Planning Possible DC in 1-2 days if she continues to improve. May need home oxygen. Follow cytology. Leela Tony MD Sep 28, 2017 11:01
[2017-09-28] MEDS ORDERED: VANCOMYCIN INJ 1,750 MG in SODIUM CHLORID 0.9% 500 ML INJ 500 ML IV SCH (12:00)
--- NOTE | 2017-09-28 15:36 | MP ---
cc: Daly Kauffman MD DATE OF OPERATION: 09/28/2017 PROCEDURE: Fiberoptic bronchoscopy flexible. REASON FOR BRONCHOSCOPY: Cavitary mass, right upper lung lobe. ANESTHESIA: Fibrotic bronchoscopy performed via LMA. PROCEDURE PERFORMED: Vocal cords visualized, appeared intact. Trachea mildly hyperemic. Norma is sharp. Right mainstem bronchus, right upper, middle and lower lobe, left main bronchus, left upper and lower lobes inspected. No obstructive pathology or mass lesions seen. Severe diffuse hyperemia throughout the right tracheobronchial tree is noted. Washings obtained from both sides of the tracheobronchial tree for routine TB, fungal culture, as well as cytological exam. Cytologic brush biopsies right upper lobe obtained and sent for cytologic exam. Procedure well tolerated. The patient was transferred to [facility] in stable condition. IMPRESSION: 1. Severe tracheobronchitis mainly on the right tracheobronchial tree. 2. No obstruction, no mass lesion. 3. Samples obtained as above. 4. Procedure well tolerated. 5. The patient was transferred to [facility] in stable condition. Daly Kauffman MD WWW/LINH , 03:25 PM , 03:35 PM
--- NOTE | 2017-09-28 16:39 | EKG ---
Date Performed: 09/28/2017 Time Performed: 05:09:10 PTAGE: 62 years EKG: Sinus rhythm Since previous tracing, no significant change noted Normal ECG PREVIOUS TRACING : 09/18/2017 15.41 DOCTOR: Diaz Hyde Interpretating Date/Time 09/28/2017 16:38:20
[2017-09-28] MEDS: CLINDAMYCIN 150 MG CAP PO SCH (20:15)
[2017-09-29 04:54] VITALS: BP 152/74; PULSE 72; RESP 18; TEMP 97.9; O2SAT 94
[2017-09-29] MEDS: ACETAMINOPHEN/HYDROcodone 325 MG/5 MG TAB PO PRN ×3 (04:59→23:30)
[2017-09-29] MEDS: guaiFENesin/CODEINE SYRUP 200 MG/20 MG/10 ML CUP PO PRN ×4 (05:01→23:16)
--- NOTE | 2017-09-29 05:56 | RADRPT ---
EXAM DATE/TIME: 09/29/2017 03:27 [facility] COMPARISON: CT THORAX W CONTRAST, September 23, 2017, 21:23. CHEST PA & LAT, September 23, 2017, 19:21. INDICATIONS : Short of breath. MEDICAL HISTORY : Hypertension. Chronic obstructive pulmonary disease. Myocardial infarction. Asthma. SURGICAL HISTORY : None. ENCOUNTER: Subsequent ACUITY: 2 days PAIN SCORE: 0/10 LOCATION: Bilateral chest FINDINGS: Cavitary Mass or infiltrate in the right lung apex is grossly unchanged. Left lung is clear. No signi ficant effusion is present. Cardiac contours are stable. CONCLUSION: No significant change Oswaldo Anderson MD on September 29, 2017 at 5:53 Board Certified Radiologist. This report was verified electronically.
[2017-09-29] MEDS: CLINDAMYCIN 150 MG CAP PO SCH ×3 (06:01→23:16)
[2017-09-29] MEDS: OXYBUTYNIN CHLORIDE 5 MG TAB PO SCH ×4 (06:01→23:16)
[2017-09-29] MEDS: predniSONE 20 MG TAB PO SCH ×2 (09:46→23:01)
[2017-09-29] MEDS: guaiFENesin E.R. 600 MG TAB PO SCH ×2 (09:46→23:01)
[2017-09-29] MEDS: NYSTATIN SUSP 500,000 U/5 ML CUP SWISH-SWAL SCH ×4 (09:46→23:16)
[2017-09-29] MEDS: DOCUSATE SODIUM 50 MG/SENNA 8.6 MG TAB PO SCH ×2 (09:46→23:01)
[2017-09-29] MEDS: SODIUM CHLORIDE 0.9% FLUSH 10 ML FLUSH IV FLUSH SCH ×2 (09:47→23:01)
[2017-09-29] MEDS: RESP: ALBUTEROL 2.5 MG/IPRATROPIUM 0.5 MG NEB (PRN) NEB (09:49)
[2017-09-29] MEDS: INSULIN ASPART SUPPLEMENTAL SCALE SQ SCH ×4 (09:49→21:00)
[2017-09-29] MEDS: BUDESONIDE-FORMOTEROL 160/4.5 MCG INHALER INH SCH ×2 (09:49→23:02)
[2017-09-29 09:53] VITALS: O2SAT 98
[2017-09-29 11:00] VITALS: BP 153/57; PULSE 89; RESP 18; TEMP 97.5; O2SAT 98
--- NOTE | 2017-09-29 11:23 | HHI.PR ---
Subjective Remarks Patient seen after bronchoscopy. She is having a spasmatic cough. Denies increased in shortness of breath. She inquired about when she can go home. 4-4 STILL HAS COUGH STATES NOT SLEEPING WELL WANTS SOMETHING TO HELP MANY QUESTIONS ANSWERED DW RN AND PT AND CM Objective Vitals Vital Signs Date Time Temp Pulse Resp B/P (MAP) Pulse Ox O2 Delivery O2 Flow Rate FiO2 09/29/17 09:53 98 Nasal Cannula 2.00 09/29/17 04:54 97.9 72 18 152/74 (100) 94 09/28/17 23:50 98.3 68 18 166/87 (113) 94 09/28/17 21:11 97 Nasal Cannula 2.00 09/28/17 20:19 98.2 81 17 170/93 (118) 97 09/28/17 16:00 98.1 72 20 159/87 (111) 98 09/28/17 12:00 98.0 73 20 135/71 (92) 96 09/28/17 11:43 95 Nasal Cannula 2.00 I/O 09/28/17 09/28/17 09/28/17 09/29/17 09/29/17 09/29/17 07:00 15:00 23:00 07:00 15:00 23:00 Intake Total 1600 ml 1070 ml 480 ml Output Total 2000 ml 1400 ml 2100 ml Balance -400 ml -330 ml -1620 ml Intake Oral 1070 ml 480 ml IV Total 1600 ml Output Urine Total 2000 ml 1400 ml 2100 ml # Voids 10 # Bowel Movements 1 Result Diagram: 09/27/17 0530 09/28/17 0617 Other Results Laboratory Tests Test 09/26/17 14:55 09/27/17 05:30 09/27/17 13:00 09/28/17 00:25 Vancomycin Level Trough 6.4 MCG/ML 11.0 MCG/ML White Blood Count 9.0 TH/MM3 Red Blood Count 4.29 MIL/MM3 Hemoglobin 12.0 GM/DL Hematocrit 36.1 % Mean Corpuscular Volume 84.3 FL Mean Corpuscular Hemoglobin 28.0 PG Mean Corpuscular Hemoglobin Concent 33.2 % Red Cell Distribution Width 15.2 % Platelet Count 253 TH/MM3 Mean Platelet Volume 7.8 FL Blood Urea Nitrogen 6 MG/DL Creatinine 0.60 MG/DL Random Glucose 233 MG/DL Calcium Level 8.4 MG/DL Sodium Level 138 MEQ/L Potassium Level 4.1 MEQ/L Chloride Level 101 MEQ/L Carbon Dioxide Level 29.6 MEQ/L Anion Gap 7 MEQ/L Estimat Glomerular Filtration Rate 101 ML/MIN Prothrombin Time 10.0 SEC Prothromb Time International Ratio 1.0 RATIO Activated Partial Thromboplast Time 24.4 SEC Test 09/28/17 06:17 Creatinine 0.60 MG/DL Estimat Glomerular Filtration Rate 101 ML/MIN Imaging Last Impressions Chest X-Ray 09/29/17 0600 Signed Impressions: Service Date/Time: Friday, September 29, 2017 03:27 - CONCLUSION: No significant change Oswaldo Anderson MD Chest CT 09/23/17 0000 Signed Impressions: Service Date/Time: August 21:23 - CONCLUSION: 6 cm cavitary mass in the right upper lobe with other surrounding areas of focal mass or consolidation in the right upper lobe. This distribution within one lobe is most suggestive of inflammatory/infectious process however, it is nonspecific and neoplastic change could have a similar appearance. Oswaldo Vilchis MD Objective Remarks GENERAL: Awake alert and oriented 3 talkative and cooperative has some cough and congestion obese female SKIN: Warm and dry. HEAD: Atraumatic. Normocephalic. EYES: Pupils equal and round. No scleral icterus. No injection or drainage. Extraocular muscles intact ENT: No nasal bleeding or discharge. Mucous membranes pink and moist. Tongue is midline NECK: Trachea midline. No JVD. Supple CARDIOVASCULAR: Regular rate and rhythm. S1-S2 no S3-S4 RESPIRATORY: No accessory muscle use. Clear to auscultation. Breath sounds equal bilaterally. Some scattered rhonchi's and decreased breath sounds on the right GASTROINTESTINAL: Abdomen soft, non-tender, nondistended. Hepatic and splenic margins not palpable. MUSCULOSKELETAL: Extremities without clubbing, cyanosis, or edema. No obvious deformities. NEUROLOGICAL: Awake and alert. No obvious cranial nerve deficits. Motor grossly within normal limits.4 out of 5 muscle strength in the arms and legs. Normal speech. PSYCHIATRIC: Appropriate mood and affect; insight and judgment normal. Procedures Bronchoscopy 4-3 Medications and IVs Current Medications Sodium Chloride (NS Flush) 2 ml UNSCH PRN IVF FLUSH AFTER USING IV ACCESS; Start 09/23/17 at 19:30; Stop 09/24/17 at 03:09; Status DC Albuterol/ Ipratropium (Duoneb Neb) 1 ampule Q15M INH Last administered on 09/23at 19:40; Start 09/23/17 at 19:30; Stop 09/23/17 at 20:01; Status DC Iohexol (Omnipaque 350 Inj) 65 ml STK-MED ONCE IVCONTRAST Last administered on 09/23/17at 21:32; Start 09/23/17 at 21:32; Stop 09/23/17 at 21:33; Status DC Guaifenesin/ Codeine Phosphate (Robitussin Ac 200-20 Mg/10 ml Liq) 10 ml ONCE ONCE PO Last administered on 09/23/17at 22:20; Start 09/23/17 at 22:15; Stop at 22:16; Status DC Albuterol/ Ipratropium (Duoneb Neb) 1 ampule Q4HR NEB PRN NEB SOB/WHEEZING Last administered on 09/24/17at 00:51; Start 09/23/17 at 23:00; Stop 09/24/17 at 07:47; Status DC Budesonide/ Formoterol Fumarate (Symbicort 160-4.5 Mcg Inh) 2 puff Q12HR INH Last administered on 09/29/17at 09:49; Start 09/24/17 at 09:00 Guaifenesin (Mucinex Er) 600 mg BID PO Last administered on 09/29/17at 09:46; Start 09/24/17 at 09:00 Pharmacy Profile Note 0 ml @ 0 mls/hr UNSCH OTHER ; Start 09/23/17 at 23:00; Stop 09/28/17 at 16:59; Status DC Cefepime HCl 1000 mg/Sodium Chloride 100 ml @ 200 mls/hr Q12H IV Last administered on 09/24/17at 01:26; Start 09/23/17 at 23:00; Stop 09/24/17 at 07:47 ; Status DC Sodium Chloride 1,000 ml @ 100 mls/hr Q10H IV Last administered on 09/24/17at 01:27; Start 09/23/17 at 22:54; Stop 09/24/17 at 07:47; Status DC Sodium Chloride (NS Flush) 2 ml UNSCH PRN IV FLUSH FLUSH AFTER USING IV ACCESS ; Start 09/23/17 at 23:00 Sodium Chloride (NS Flush) 2 ml BID IV FLUSH Last administered on 09/29/17 09: 47; Start 09/24/17 at 09:00 Ondansetron HCl (Zofran Inj) 4 mg Q6H PRN IVP NAUSEA OR VOMITING; Start at 23:00 Acetaminophen (Tylenol) 650 mg Q6H PRN PO FEVER/PAIN SCALE 1 TO 2 Last administered on 09/24/17at 03:19; Start 09/23/17 at 23:00 Acetaminophen/ Hydrocodone Bitart ([place] 5-325 Mg) 1 tab Q4H PRN PO PAIN SCALE 3 TO 5 Last administered on 09/29/17 04:59; Start 09/23/17 at 23:00 Morphine Sulfate (Morphine Inj) 2 mg Q3H PRN IV PUSH Pain 6-10 Last administered on 09/26/17 03:05; Start 09/23/17 at 23:00 Senna/Docusate Sodium (Jessa-Colace) 1 tab BID PO Last administered on 09/29/17 09:46; Start 09/24/17 at 09:00 Magnesium Hydroxide (Milk Of Magnesia Liq) 30 ml Q12H PRN PO Mild constipation ; Start 09/23/17 at 23:00 Sennosides (Senokot) 17.2 mg Q12H PRN PO Moderate constipation; Start 09/23/17 at 23:00 Bisacodyl (Dulcolax Supp) 10 mg DAILY PRN RECTAL SEVERE CONSITIPATION/ IF NPO ; Start 09/23/17 at 23:00 Lactulose (Lactulose Liq) 30 ml DAILY PRN PO SEVERE CONSITIPATION/ IF PO; Start 09/23/17 at 23:00 Vancomycin HCl 1400 mg/Sodium Chloride 514 ml @ 250 mls/hr Q12H IV Last administered on 09/28/17at 00:27; Start 09/24/17 at 01:00; Stop 09/28/17 at 09:14; Status DC Miscellaneous Information SPECIFIC LAB TO BE BLADIMIR... ONCE ONCE .XX Last administered on 09/25/17at 15:46; Start 09/25/17 at 12:45; Stop 09/25/17 at 12:46 ; Status DC Guaifenesin/ Codeine Phosphate (Robitussin Ac 200-20 Mg/10 ml Liq) 10 ml ONCE ONCE PO Last administered on 09/24/17at 03:19; Start 09/24/17 at 03:00; Stop at 03:08; Status DC Enalaprilat (Vasotec Inj) 1.25 mg Q6H PRN IV PUSH SBP>160, DBP>90 Last administered on 09/25/17at 19:12; Start 09/24/17 at 03:00 Albuterol/ Ipratropium (Duoneb Neb) 1 ampule Q2HR NEB PRN NEB SOB/WHEEZING Last administered on 09/29/17 09:49; Start 09/24/17 at 08:00 Potassium Chloride/Sodium Chloride 1,000 ml @ 84 mls/hr [id number] IV Last administered on 09/28/17at 10:38; Start 09/24/17 at 08:00; Stop 09/28/17 at 16:59; Status DC Albuterol/ Ipratropium (Duoneb Neb) 1 ampule Q6HR WHILE AWAKE NEB NEB Last administered on 09/27/17at 20:46; Start 09/24/17 at 08:00; Stop 09/28/17 at 07:59; Status DC Dextrose (D50w (Vial) Inj) 50 ml UNSCH PRN IV PUSH HYPOGLYCEMIA-SEE COMMENTS; Start 09/24/17 at 07:45 Glucagon (Glucagon Inj) 1 mg UNSCH PRN OTHER HYPOGLYCEMIA-SEE COMMENTS; Start 09/24/17 at 07:45 Insulin Aspart (NovoLOG SUPPLEMENTAL SCALE) 1 ACHS SLIDING SCALE SQ Last administered on 09/29/17 09:49; Start 09/24/17 at 08:00 Piperacillin Sod/ Tazobactam Sod 100 ml @ 200 mls/hr Q6H IV Last administered on 09/28/17at 10:29; Start 09/24/17 at 08:00; Stop 09/28/17 at 11:03; Status DC Guaifenesin/ Codeine Phosphate (Robitussin Ac 200-20 Mg/10 ml Liq) 10 ml Q6H PRN PO COUGH Last administered on 09/29/17at 10:42; Start 09/24/17 at 16:15 Potassium Chloride (KCl) 40 meq ONCE ONCE PO Last administered on 09/25/17at 11 :18; Start 09/25/17 at 08:30; Stop 09/25/17 at 08:31; Status DC Miscellaneous Information SPECIFIC LAB TO BE DRAWN:VA... ONCE ONCE .XX Last administered on 09/26/17at 14:55; Start 09/26/17 at 12:45; Stop 09/26/17 at 12:46; Status DC Prednisone (Deltasone) 20 mg BID PO Last administered on 09/29/17at 09:46; Start 09/26/17 at 21:00 Nystatin (Mycostatin Liq) 5 ml QID SWISH-SWAL Last administered on 09/29/17at 09 :46; Start 09/26/17 at 13:00 Dextrose/Sodium Chloride 1,000 ml @ 0 mls/hr Q0M IV ; Start 09/26/17 at 17:01 Albuterol Sulfate (Albuterol Concentrated Neb) 2.5 mg PAD MACHINE OPERATOR NEB ; Start at 17:15; Stop 09/30/17 at 17:14 Lidocaine HCl (Lidocaine Pf 4% Neb) 3 ml PAD MACHINE OPERATOR NEB ; Start 09/26/17 at 17:15; Stop 09/30/17 at 17:14 Phenol (Chloraseptic [place]) 2 spray Q2H PRN OROPHARYNG sore throat Last administered on 09/27/17at 05:22; Start 09/26/17 at 20:30 Oxybutynin Chloride (Ditropan) 5 mg Q6HR PO Last administered on 09/29/17at 06:01 ; Start 09/27/17 at 00:00 Miscellaneous Information SPECIFIC LAB TO BE BLADIMIR... ONCE ONCE .XX Last administered on 09/28/17at 00:25; Start 09/28/17 at 00:45; Stop 09/28/17 at 00:46; Status DC Albuterol Sulfate (Albuterol Concentrated Neb) 2.5 mg PAD MACHINE OPERATOR NEB ; Start at 11:45; Stop 10/01/17 at 11:44 Lidocaine HCl (Lidocaine Pf 4% Neb) 3 ml PAD MACHINE OPERATOR NEB ; Start 09/27/17 at 11:45; Stop 4/6/18 at 11:44 Vancomycin HCl 1750 mg/Sodium Chloride 517.5 ml @ 250 mls/hr Q12H IV Last administered on 09/28/17at 12:36; Start 09/28/17 at 12:00; Stop 09/28/17 at 16:59; Status DC Miscellaneous Information SPECIFIC LAB TO BE DRAWN:VANCOMYCIN TROUGH DATE TO... ONCE ONCE .XX ; Start 09/30/17 at 11:45; Stop 09/30/17 at 11:45; Status DC Albuterol Sulfate (*ALBUTEROL NEB PERIprocedure ONLY) 2.5 mg STK-MED ONCE NEB Last administered on 09/28/17at 09:45; Start 09/28/17 at 09:45; Stop 09/28/17 at 09: 46; Status DC Morphine Sulfate (*morphine INJ PERIprocedure ONLY) 4 mg STK-MED ONCE .ROUTE Last administered on 09/28/17at 09:45; Start 09/28/17 at 09:45; Stop 09/28/17 at 09: 46; Status DC Miscellaneous Information ALL NURSING DEPARTME... UNSCH PRN .XX SEE LABEL COMMENTS; Start 09/28/17 at 09:40; Stop 09/29/17 at 09:39; Status DC Clindamycin HCl (Cleocin) 600 mg Q8HR PO Last administered on 09/29/17at 06:01; Start 09/28/17 at 22:00; Stop 10/05/17 at 21:59 A/P Problem List: (1) Sepsis ICD Code: A41.9 - Sepsis, unspecified organism (2) Cavitary lesion of lung ICD Code: J98.4 - Other disorders of lung Status: Acute (3) COPD exacerbation ICD Code: J44.1 - Chronic obstructive pulmonary disease with (acute) exacerbation Status: Acute (4) Mass of upper lobe of right lung ICD Code: R91.8 - Other nonspecific abnormal finding of lung field Assessment and Plan Sepsis secondary to pneumonia, resolving Patient meets criteria with febrile illness, leukocytosis, tachycardia, right upper lung pneumonia with cavitary lesion Influenza testing, streptococcal pneumonia testing, Legionella testing all were negative, S/P bronchoscopy on 09/[address] Snow which showed Severe tracheobronchitis mainly on the right tracheobronchial tree. No obstruction, no mass lesion. Samples obtained as above. Bronchial washing studies pending. sputum culture from 09/24 grew MRSA. Sensitivity profile noted. Patient transitioned to Clindamycin. Add Lactinex Right upper lung cavitary lesion/pneumonia/COPD exacerbation Pneumonia resolving. Continue O2 supplementation to maintain O2 sats greater than 92% Continue Symbicort Continue nebulizer treatment Acapella. Repeat CXR in AM. Mucinex and incentive spirometry Hyperglycemia, No history of diabetes, but she has not followed with a PCP. Suspect undiagnosed DM. Hemoglobin A1c 7.4 Accu-Cheks with sliding scale insulin Diabetic diet. Patient counseled. Diabetic/dietary consultation Consider discharge on Metformin. Start p.o. metformin Insomnia Ambien DVT prevention Sequential compression devices Discharge Planning Pending improvement in next day or 2 Rip Morris DO Sep 29, 2017 11:23
[2017-09-29] MEDS: LACTOBACILLUS ACIDOPHILUS TAB PO SCH ×2 (14:02→17:25)
[2017-09-29 15:55] VITALS: BP 141/36; PULSE 18; RESP 20; TEMP 99; O2SAT 78
[2017-09-29] MEDS: metFORMIN HCL 500 MG TAB PO SCH (17:24)
[2017-09-29] MEDS ORDERED: NON-FORMULARY DRUG (Fluticasone-Salmeterol Inh (Advair Diskus Inh) 1 PUFF) INH SCH (21:00)
[2017-09-29] MEDS: RESP: ALBUTEROL 2.5 MG/IPRATROPIUM 0.5 MG NEB (SCH) NEB (21:10)
[2017-09-29 21:11] VITALS: O2SAT 94
[2017-09-29 23:00] VITALS: BP 144/68; PULSE 83; RESP 20; TEMP 97.8; O2SAT 98
[2017-09-29] MEDS: ZOLPIDEM TARTRATE 5 MG TAB PO PRN (23:16)
[2017-09-30] VITALS (7 sets, daily range): BP systolic 155–197; BP diastolic 73–105; PULSE 77–85; RESP 18–22; TEMP 98.1–98.6; O2SAT 96–98
[2017-09-30] MEDS: ACETAMINOPHEN/HYDROcodone 325 MG/5 MG TAB PO PRN ×5 (03:54→21:55)
[2017-09-30] MEDS: OXYBUTYNIN CHLORIDE 5 MG TAB PO SCH ×4 (05:29→22:55)
[2017-09-30] MEDS: CLINDAMYCIN 150 MG CAP PO SCH ×3 (05:29→21:53)
[2017-09-30] MEDS: guaiFENesin/CODEINE SYRUP 200 MG/20 MG/10 ML CUP PO PRN ×3 (05:29→21:53)
[2017-09-30 07:11] LABS: AUTOMATED NEUTROPHIL # 6.4 TH/MM3 (1.8-7.7); BASOPHIL % 0.2 % (0.0-2.0); HEMATOCRIT 33.3 % (35.0-46.0); HEMOGLOBIN 11.3 GM/DL (11.6-15.3); LYMPH % 14.4 % (9.0-44.0); LYMPHOCYTE # 1.2 TH/MM3 (1.0-4.8); MEAN CELL VOLUME 83.3 FL (80.0-100.0); MEAN CORPUSCULAR HEMOGLOBIN 28.3 PG (27.0-34.0); MEAN PLATELET VOLUME 7.4 FL (7.0-11.0); MONO % 5.4 % (0.0-8.0); MONOCYTE # 0.4 TH/MM3 (0-0.9); PLATELET COUNT 299 TH/MM3 (150-450); RED CELL DISTRIBUTION WIDTH 15.5 % (11.6-17.2); WHITE BLOOD COUNT 8.1 TH/MM3 (4.0-11.0)
[2017-09-30 07:17] LABS: ALBUMIN 2.5 GM/DL (3.4-5.0); ALT (GPT) 34 U/L (10-53); AST (GOT) 18 U/L (15-37); BICARBONATE 30.7 MEQ/L (21.0-32.0); BLOOD UREA NITROGEN 8 MG/DL (7-18); CALCIUM 8.6 MG/DL (8.5-10.1); CHLORIDE 100 MEQ/L (98-107); CREATININE 0.66 MG/DL (0.50-1.00); GLOMERULAR FILTRATION RATE 90 ML/MIN (>89); GLUCOSE,RANDOM 253 MG/DL (74-106); MAGNESIUM 2.2 MG/DL (1.5-2.5); PHOSPHORUS 3.3 MG/DL (2.5-4.9); SODIUM (NA) 139 MEQ/L (136-145)
[2017-09-30 07:26] LABS: ALKALINE PHOSPHATASE 91 U/L (45-117); FREE T4 1.13 NG/DL (0.76-1.46); TOTAL BILIRUBIN ADULT 0.2 MG/DL (0.2-1.0); TOTAL PROTEIN 6.4 GM/DL (6.4-8.2)
[2017-09-30] MEDS: NYSTATIN SUSP 500,000 U/5 ML CUP SWISH-SWAL SCH ×4 (08:28→21:52)
[2017-09-30] MEDS: HYDROCHLOROTHIAZIDE 25 MG TAB PO SCH (08:28)
[2017-09-30] MEDS: LORATADINE 10 MG TAB PO SCH (08:28)
[2017-09-30] MEDS: guaiFENesin E.R. 600 MG TAB PO SCH ×2 (08:29→21:54)
[2017-09-30] MEDS: MELOXICAM 7.5 MG TAB PO SCH (08:29)
[2017-09-30] MEDS: metFORMIN HCL 500 MG TAB PO SCH ×2 (08:29→17:18)
[2017-09-30] MEDS: LACTOBACILLUS ACIDOPHILUS TAB PO SCH ×3 (08:29→17:16)
[2017-09-30] MEDS: predniSONE 20 MG TAB PO SCH ×2 (08:29→21:54)
[2017-09-30] MEDS: BUDESONIDE-FORMOTEROL 160/4.5 MCG INHALER INH SCH ×2 (08:30→21:55)
[2017-09-30] MEDS: DOCUSATE SODIUM 50 MG/SENNA 8.6 MG TAB PO SCH ×2 (08:36→21:00)
[2017-09-30] MEDS: SODIUM CHLORIDE 0.9% FLUSH 10 ML FLUSH IV FLUSH SCH ×2 (08:36→21:52)
[2017-09-30] MEDS: INSULIN ASPART SUPPLEMENTAL SCALE SQ SCH ×4 (08:43→21:00)
[2017-09-30 08:44] LABS: BANDS 3 % (0-6); BASOPHILS 1 % (0-2); LYMPHOCYTES 10 % (9-44); METAMYELOCYTES 1 % (0-1); MONOCYTES 7 % (0-8); MYELOCYTES 1 % (0-0); NEUTROPHIL # MANUAL DIFF 6.6 TH/MM3 (1.8-7.7); POLYS (SEG NEUTROPHILS) 77 % (16-70)
[2017-09-30] MEDS: RESP: ALBUTEROL 2.5 MG/IPRATROPIUM 0.5 MG NEB (SCH) NEB ×3 (10:04→19:33)
--- NOTE | 2017-09-30 11:12 | HHI.PR ---
Subjective Remarks Patient seen after bronchoscopy. She is having a spasmatic cough. Denies increased in shortness of breath. She inquired about when she can go home. 4-4 STILL HAS COUGH STATES NOT SLEEPING WELL WANTS SOMETHING TO HELP MANY QUESTIONS ANSWERED DW RN AND PT AND CM 4-5 STILL HAS COUGH PATHOLOGY SHOWS INFLAMMATION- NO CANCER ON SAMPLES PER BRONCHOSCOPY DW RN AND PT CONTINUE CURRENT TREATMENT HOPEFULLY HOME TOMORROW OR NEXT DAY Objective Vitals Vital Signs Date Time Temp Pulse Resp B/P (MAP) Pulse Ox O2 Delivery O2 Flow Rate FiO2 09/30/17 10:19 Nasal Cannula 2.00 09/30/17 10:05 98 Nasal Cannula 2.00 09/30/17 08:26 98.6 77 20 156/86 (109) 98 09/30/17 04:00 98.1 78 20 158/80 (106) 96 09/29/17 23:00 97.8 83 20 144/68 (93) 98 09/29/17 23:00 98 Nasal Cannula 2.00 09/29/17 21:11 94 Nasal Cannula 2.00 09/29/17 15:55 99.0 18 20 141/36 (71) 78 I/O 09/29/17 09/29/17 09/29/17 09/30/17 09/30/17 09/30/17 07:00 15:00 23:00 07:00 15:00 23:00 Intake Total 480 ml 690 ml 600 ml Output Total 2100 ml 900 ml Balance -1620 ml -210 ml 600 ml Intake Oral 480 ml 690 ml 600 ml Output Urine Total 2100 ml 900 ml Result Diagram: 09/30/17 0546 09/30/17 0546 Other Results Laboratory Tests Test 09/27/17 13:00 09/28/17 00:25 09/28/17 06:17 09/30/17 05:46 Prothrombin Time 10.0 SEC Prothromb Time International Ratio 1.0 RATIO Activated Partial Thromboplast Time 24.4 SEC Vancomycin Level Trough 11.0 MCG/ML Creatinine 0.60 MG/DL 0.66 MG/DL Estimat Glomerular Filtration Rate 101 ML/MIN 90 ML/MIN White Blood Count 8.1 TH/MM3 Red Blood Count 4.00 MIL/MM3 Hemoglobin 11.3 GM/DL Hematocrit 33.3 % Mean Corpuscular Volume 83.3 FL Mean Corpuscular Hemoglobin 28.3 PG Mean Corpuscular Hemoglobin Concent 34.0 % Red Cell Distribution Width 15.5 % Platelet Count 299 TH/MM3 Mean Platelet Volume 7.4 FL Neutrophils (%) (Auto) 80.0 % Lymphocytes (%) (Auto) 14.4 % Monocytes (%) (Auto) 5.4 % Eosinophils (%) (Auto) 0.0 % Basophils (%) (Auto) 0.2 % Neutrophils # (Auto) 6.4 TH/MM3 Lymphocytes # (Auto) 1.2 TH/MM3 Monocytes # (Auto) 0.4 TH/MM3 Eosinophils # (Auto) 0.0 TH/MM3 Basophils # (Auto) 0.0 TH/MM3 CBC Comment AUTO DIFF Differential Total Cells Counted 100 Neutrophils % (Manual) 77 % Band Neutrophils % 3 % Lymphocytes % 10 % Monocytes % 7 % Basophils % 1 % Neutrophils # (Manual) 6.6 TH/MM3 Metamyelocytes 1 % Myelocytes 1 % Differential Comment FINAL DIFF MANUAL Platelet Estimate NORMAL Platelet Morphology Comment NORMAL Blood Urea Nitrogen 8 MG/DL Random Glucose 253 MG/DL Total Protein 6.4 GM/DL Albumin 2.5 GM/DL Calcium Level 8.6 MG/DL Phosphorus Level 3.3 MG/DL Magnesium Level 2.2 MG/DL Alkaline Phosphatase 91 U/L Aspartate Amino Transf (AST/SGOT) 18 U/L Alanine Aminotransferase (ALT/SGPT) 34 U/L Total Bilirubin 0.2 MG/DL Sodium Level 139 MEQ/L Potassium Level 4.0 MEQ/L Chloride Level 100 MEQ/L Carbon Dioxide Level 30.7 MEQ/L Anion Gap 8 MEQ/L Free Thyroxine 1.13 NG/DL Thyroid Stimulating Hormone 3rd Gen 0.839 uIU/ML Imaging Last Impressions Chest X-Ray 09/29/17 0600 Signed Impressions: Service Date/Time: Friday, September 29, 2017 03:27 - CONCLUSION: No significant change Oswaldo Anderson MD Chest CT 09/23/17 0000 Signed Impressions: Service Date/Time: August 21:23 - CONCLUSION: 6 cm cavitary mass in the right upper lobe with other surrounding areas of focal mass or consolidation in the right upper lobe. This distribution within one lobe is most suggestive of inflammatory/infectious process however, it is nonspecific and neoplastic change could have a similar appearance. Oswaldo Vilchis MD Objective Remarks GENERAL: Awake alert and oriented 3 talkative and cooperative has some cough and congestion obese female SKIN: Warm and dry. HEAD: Atraumatic. Normocephalic. EYES: Pupils equal and round. No scleral icterus. No injection or drainage. Extraocular muscles intact ENT: No nasal bleeding or discharge. Mucous membranes pink and moist. Tongue is midline NECK: Trachea midline. No JVD. Supple CARDIOVASCULAR: Regular rate and rhythm. S1-S2 no S3-S4 RESPIRATORY: No accessory muscle use. Clear to auscultation. Breath sounds equal bilaterally. Some scattered rhonchi's and decreased breath sounds on the right GASTROINTESTINAL: Abdomen soft, non-tender, nondistended. Hepatic and splenic margins not palpable. MUSCULOSKELETAL: Extremities without clubbing, cyanosis, or edema. No obvious deformities. NEUROLOGICAL: Awake and alert. No obvious cranial nerve deficits. Motor grossly within normal limits.4 out of 5 muscle strength in the arms and legs. Normal speech. PSYCHIATRIC: Appropriate mood and affect; insight and judgment normal. Procedures Bronchoscopy 4-3 Medications and IVs Current Medications Sodium Chloride (NS Flush) 2 ml UNSCH PRN IVF FLUSH AFTER USING IV ACCESS; Start 09/23/17 at 19:30; Stop 09/24/17 at 03:09; Status DC Albuterol/ Ipratropium (Duoneb Neb) 1 ampule Q15M INH Last administered on 09/23at 19:40; Start 09/23/17 at 19:30; Stop 09/23/17 at 20:01; Status DC Iohexol (Omnipaque 350 Inj) 65 ml STK-MED ONCE IVCONTRAST Last administered on 09/23/17at 21:32; Start 09/23/17 at 21:32; Stop 09/23/17 at 21:33; Status DC Guaifenesin/ Codeine Phosphate (Robitussin Ac 200-20 Mg/10 ml Liq) 10 ml ONCE ONCE PO Last administered on 09/23/17at 22:20; Start 09/23/17 at 22:15; Stop at 22:16; Status DC Albuterol/ Ipratropium (Duoneb Neb) 1 ampule Q4HR NEB PRN NEB SOB/WHEEZING Last administered on 09/24/17at 00:51; Start 09/23/17 at 23:00; Stop 09/24/17 at 07:47; Status DC Budesonide/ Formoterol Fumarate (Symbicort 160-4.5 Mcg Inh) 2 puff Q12HR INH Last administered on 09/30/17 08:30; Start 09/24/17 at 09:00 Guaifenesin (Mucinex Er) 600 mg BID PO Last administered on 09/30/17 08:29; Start 09/24/17 at 09:00 Pharmacy Profile Note 0 ml @ 0 mls/hr UNSCH OTHER ; Start 09/23/17 at 23:00; Stop 09/28/17 at 16:59; Status DC Cefepime HCl 1000 mg/Sodium Chloride 100 ml @ 200 mls/hr Q12H IV Last administered on 09/24/17at 01:26; Start 09/23/17 at 23:00; Stop 09/24/17 at 07:47 ; Status DC Sodium Chloride 1,000 ml @ 100 mls/hr Q10H IV Last administered on 09/24/17at 01:27; Start 09/23/17 at 22:54; Stop 09/24/17 at 07:47; Status DC Sodium Chloride (NS Flush) 2 ml UNSCH PRN IV FLUSH FLUSH AFTER USING IV ACCESS ; Start 09/23/17 at 23:00 Sodium Chloride (NS Flush) 2 ml BID IV FLUSH Last administered on 09/30/17at 08: 36; Start 09/24/17 at 09:00 Ondansetron HCl (Zofran Inj) 4 mg Q6H PRN IVP NAUSEA OR VOMITING; Start at 23:00 Acetaminophen (Tylenol) 650 mg Q6H PRN PO FEVER/PAIN SCALE 1 TO 2 Last administered on 09/24/17at 03:19; Start 09/23/17 at 23:00 Acetaminophen/ Hydrocodone Bitart (Priddy 5-325 Mg) 1 tab Q4H PRN PO PAIN SCALE 3 TO 5 Last administered on 09/30/17 08:29; Start 09/23/17 at 23:00 Morphine Sulfate (Morphine Inj) 2 mg Q3H PRN IV PUSH Pain 6-10 Last administered on 09/26/17at 03:05; Start 09/23/17 at 23:00 Senna/Docusate Sodium (Jessa-Colace) 1 tab BID PO Last administered on 09/29/17at 23:01; Start 09/24/17 at 09:00 Magnesium Hydroxide (Milk Of Magnesia Liq) 30 ml Q12H PRN PO Mild constipation ; Start 09/23/17 at 23:00 Sennosides (Senokot) 17.2 mg Q12H PRN PO Moderate constipation; Start 09/23/17 at 23:00 Bisacodyl (Dulcolax Supp) 10 mg DAILY PRN RECTAL SEVERE CONSITIPATION/ IF NPO ; Start 09/23/17 at 23:00 Lactulose (Lactulose Liq) 30 ml DAILY PRN PO SEVERE CONSITIPATION/ IF PO; Start 09/23/17 at 23:00 Vancomycin HCl 1400 mg/Sodium Chloride 514 ml @ 250 mls/hr Q12H IV Last administered on 09/28/17at 00:27; Start 09/24/17 at 01:00; Stop 09/28/17 at 09:14; Status DC Miscellaneous Information SPECIFIC LAB TO BE BLADIMIR... ONCE ONCE .XX Last administered on 09/25/17at 15:46; Start 09/25/17 at 12:45; Stop 09/25/17 at 12:46 ; Status DC Guaifenesin/ Codeine Phosphate (Robitussin Ac 200-20 Mg/10 ml Liq) 10 ml ONCE ONCE PO Last administered on 09/24/17at 03:19; Start 09/24/17 at 03:00; Stop at 03:08; Status DC Enalaprilat (Vasotec Inj) 1.25 mg Q6H PRN IV PUSH SBP>160, DBP>90 Last administered on 09/25/17at 19:12; Start 09/24/17 at 03:00 Albuterol/ Ipratropium (Duoneb Neb) 1 ampule Q2HR NEB PRN NEB SOB/WHEEZING Last administered on 09/29/17at 09:49; Start 09/24/17 at 08:00 Potassium Chloride/Sodium Chloride 1,000 ml @ 84 mls/hr [id number] IV Last administered on 09/28/17at 10:38; Start 09/24/17 at 08:00; Stop 09/28/17 at 16:59; Status DC Albuterol/ Ipratropium (Duoneb Neb) 1 ampule Q6HR WHILE AWAKE NEB NEB Last administered on 09/27/17at 20:46; Start 09/24/17 at 08:00; Stop 09/28/17 at 07:59; Status DC Dextrose (D50w (Vial) Inj) 50 ml UNSCH PRN IV PUSH HYPOGLYCEMIA-SEE COMMENTS; Start 09/24/17 at 07:45 Glucagon (Glucagon Inj) 1 mg UNSCH PRN OTHER HYPOGLYCEMIA-SEE COMMENTS; Start 09/24/17 at 07:45 Insulin Aspart (NovoLOG SUPPLEMENTAL SCALE) 1 ACHS SLIDING SCALE SQ Last administered on 09/30/17at 08:43; Start 09/24/17 at 08:00 Piperacillin Sod/ Tazobactam Sod 100 ml @ 200 mls/hr Q6H IV Last administered on 09/28/17at 10:29; Start 09/24/17 at 08:00; Stop 09/28/17 at 11:03; Status DC Guaifenesin/ Codeine Phosphate (Robitussin Ac 200-20 Mg/10 ml Liq) 10 ml Q6H PRN PO COUGH Last administered on 09/30/17at 05:29; Start 09/24/17 at 16:15 Potassium Chloride (KCl) 40 meq ONCE ONCE PO Last administered on 09/25/17at 11 :18; Start 09/25/17 at 08:30; Stop 09/25/17 at 08:31; Status DC Miscellaneous Information SPECIFIC LAB TO BE DRAWN:VA... ONCE ONCE .XX Last administered on 09/26/17at 14:55; Start 09/26/17 at 12:45; Stop 09/26/17 at 12:46; Status DC Prednisone (Deltasone) 20 mg BID PO Last administered on 09/30/17at 08:29; Start 09/26/17 at 21:00 Nystatin (Mycostatin Liq) 5 ml QID SWISH-SWAL Last administered on 09/30/17at 08 :28; Start 09/26/17 at 13:00 Dextrose/Sodium Chloride 1,000 ml @ 0 mls/hr Q0M IV ; Start 09/26/17 at 17:01 Albuterol Sulfate (Albuterol Concentrated Neb) 2.5 mg [employer] NEB ; Start at 17:15; Stop 09/30/17 at 17:14 Lidocaine HCl (Lidocaine Pf 4% Neb) 3 ml [employer] NEB ; Start 09/26/17 at 17:15; Stop 09/30/17 at 17:14 Phenol (Chloraseptic [place]) 2 spray Q2H PRN OROPHARYNG sore throat Last administered on 09/27/17at 05:22; Start 09/26/17 at 20:30 Oxybutynin Chloride (Ditropan) 5 mg Q6HR PO Last administered on 09/30/17at 05:29 ; Start 09/27/17 at 00:00 Miscellaneous Information SPECIFIC LAB TO BE BLADIMIR... ONCE ONCE .XX Last administered on 09/28/17at 00:25; Start 09/28/17 at 00:45; Stop 09/28/17 at 00:46; Status DC Albuterol Sulfate (Albuterol Concentrated Neb) 2.5 mg [employer] NEB ; Start at 11:45; Stop 10/01/17 at 11:44 Lidocaine HCl (Lidocaine Pf 4% Neb) 3 ml [employer] NEB ; Start 09/27/17 at 11:45; Stop 10/01/17 at 11:44 Vancomycin HCl 1750 mg/Sodium Chloride 517.5 ml @ 250 mls/hr Q12H IV Last administered on 09/28/17at 12:36; Start 09/28/17 at 12:00; Stop 09/28/17 at 16:59; Status DC Miscellaneous Information SPECIFIC LAB TO BE DRAWN:VANCOMYCIN TROUGH DATE TO... ONCE ONCE .XX ; Start 09/30/17 at 11:45; Stop 09/30/17 at 11:45; Status DC Albuterol Sulfate (*ALBUTEROL NEB PERIprocedure ONLY) 2.5 mg STK-MED ONCE NEB Last administered on 09/28/17at 09:45; Start 09/28/17 at 09:45; Stop 09/28/17 at 09: 46; Status DC Morphine Sulfate (*morphine INJ PERIprocedure ONLY) 4 mg STK-MED ONCE .ROUTE Last administered on 09/28/17at 09:45; Start 09/28/17 at 09:45; Stop 09/28/17 at 09: 46; Status DC Miscellaneous Information ALL NURSING DEPARTME... UNSCH PRN .XX SEE LABEL COMMENTS; Start 09/28/17 at 09:40; Stop 09/29/17 at 09:39; Status DC Clindamycin HCl (Cleocin) 600 mg Q8HR PO Last administered on 09/30/17 05:29; Start 09/28/17 at 22:00; Stop 10/05/17 at 21:59 Zolpidem Tartrate (Ambien) 5 mg HS PRN PO INSOMNIA Last administered on 23:16; Start 09/29/17 at 11:30 Metformin HCl (Glucophage) 500 mg BIDPC PO Last administered on 09/30/17 08:29 ; Start 09/29/17 at 18:00 Albuterol/ Ipratropium (Duoneb Neb) 1 ampule Q6HR WHILE AWAKE NEB NEB Last administered on 09/30/17 10:04; Start 09/29/17 at 14:00 Hydrochlorothiazide (Hydrodiuril) 25 mg DAILY PO Last administered on 09/30/17 08:28; Start 09/30/17 at 09:00 Lactobacillus Acidophilus (Lactinex) 1 tab TIDAC PO Last administered on 08:29; Start 09/29/17 at 12:00 Lidocaine HCl (Lidoderm 5% Patch.12 Hr) 1 patch DAILY T-DERMAL ; Start 09/30/17 at 09:00 Loratadine (Claritin) 10 mg DAILY PO Last administered on 09/30/17 08:28; Start 09/30/17 at 09:00 Meloxicam (Mobic) 7.5 mg DAILY PO Last administered on 09/30/17 08:29; Start at 09:00 Non-Formulary Medication 1 puff BID INH ; Start 09/29/17 at 21:00; Stop 09/29/17 at 21:00; Status DC A/P Problem List: (1) Sepsis ICD Code: A41.9 - Sepsis, unspecified organism (2) Cavitary lesion of lung ICD Code: J98.4 - Other disorders of lung Status: Acute (3) COPD exacerbation ICD Code: J44.1 - Chronic obstructive pulmonary disease with (acute) exacerbation Status: Acute (4) Mass of upper lobe of right lung ICD Code: R91.8 - Other nonspecific abnormal finding of lung field Assessment and Plan Sepsis secondary to pneumonia, resolving Patient meets criteria with febrile illness, leukocytosis, tachycardia, right upper lung pneumonia with cavitary lesion Influenza testing, streptococcal pneumonia testing, Legionella testing all were negative, S/P bronchoscopy on 09/[address] Snow which showed Severe tracheobronchitis mainly on the right tracheobronchial tree. No obstruction, no mass lesion. Samples obtained as above. Bronchial washing studies pending. sputum culture from 09/24 grew MRSA. Sensitivity profile noted. Patient transitioned to Clindamycin. Add Lactinex NO CANCER SEEN ON CYTOLOGY Right upper lung cavitary lesion/pneumonia/COPD exacerbation Pneumonia resolving. Continue O2 supplementation to maintain O2 sats greater than 92% Continue Symbicort Continue nebulizer treatment Acapella. Repeat CXR in AM. Mucinex and incentive spirometry PATHOLOGY SHOWS NO CANCER AT THIS TIME Hyperglycemia, No history of diabetes, but she has not followed with a PCP. Suspect undiagnosed DM. Hemoglobin A1c 7.4 Accu-Cheks with sliding scale insulin Diabetic diet. Patient counseled. Diabetic/dietary consultation Consider discharge on Metformin. Start p.o. metformin Insomnia Ambien DVT prevention Sequential compression devices Discharge Planning Pending improvement in next day or 2 Rip Morris DO Sep 30, 2017 11:12
[2017-09-30] MEDS ORDERED: PHARMACY ORDERED LAB ONE (11:45)
[2017-09-30] MEDS: LIDOCAINE HCL 5% PATCH T-DERMAL SCH (12:41)
[2017-09-30] MEDS: ENALAPRILAT 1.25 MG/ML VIAL IV PUSH PRN (13:40)
--- NOTE | 2017-09-30 16:48 | HHI.PR ---
Subjective Remarks alert no SOB at rest less cough Objective Vital Signs Date Time Temp Pulse Resp B/P (MAP) Pulse Ox O2 Delivery O2 Flow Rate FiO2 09/30/17 12:47 98.3 80 18 197/105 (135) 96 09/30/17 10:19 Nasal Cannula 2.00 09/30/17 10:05 98 Nasal Cannula 2.00 09/30/17 08:26 98.6 77 20 156/86 (109) 98 09/30/17 04:00 98.1 78 20 158/80 (106) 96 09/29/17 23:00 97.8 83 20 144/68 (93) 98 09/29/17 23:00 98 Nasal Cannula 2.00 09/29/17 21:11 94 Nasal Cannula 2.00 I/O 09/29/17 09/29/17 09/29/17 09/30/17 09/30/17 09/30/17 07:00 15:00 23:00 07:00 15:00 23:00 Intake Total 480 ml 690 ml 600 ml Output Total 2100 ml 900 ml Balance -1620 ml -210 ml 600 ml Intake Oral 480 ml 690 ml 600 ml Output Urine Total 2100 ml 900 ml Result Diagram: 09/30/17 0546 09/30/17 0546 Objective Remarks GENERAL: SKIN: Warm and dry. HEAD: Atraumatic. Normocephalic. EYES: Pupils equal and round. No scleral icterus. No injection or drainage. ENT: No nasal bleeding or discharge. Mucous membranes pink and moist. NECK: Trachea midline. No JVD. CARDIOVASCULAR: Regular rate and rhythm. RESPIRATORY: No accessory muscle use. Clear to auscultation. Breath sounds equal bilaterally. GASTROINTESTINAL: Abdomen soft, non-tender, nondistended. Hepatic and splenic margins not palpable. MUSCULOSKELETAL: Extremities without clubbing, cyanosis, or edema. No obvious deformities. NEUROLOGICAL: Awake and alert. No obvious cranial nerve deficits. Motor grossly within normal limits. Five out of 5 muscle strength in the arms and legs. Normal speech. PSYCHIATRIC: Appropriate mood and affect; insight and judgment normal. Assessment and Plan Assessment and Plan CAVITARY MASS right UL COPD PLAN check BRONCHOSCOPY rsults continue antibx Daly Kauffman MD Sep 30, 2017 16:48
[2017-09-30 17:09] LABS: HEMOGLOBIN A1C 7.5 % (4.3-6.0)
[2017-09-30] MEDS ORDERED: METO50TA PO (17:21)
[2017-09-30] MEDS: METOPROLOL TARTRATE 50 MG TAB PO SCH (21:54)
[2017-09-30] MEDS: ZOLPIDEM TARTRATE 5 MG TAB PO PRN (22:54)
[2017-10-01] VITALS: BP 144/79; PULSE 71; RESP 20; TEMP 98.1; O2SAT 94
[2017-10-01] MEDS: MORPHINE SULFATE 2 MG/ML SYRINGE IV PUSH PRN ×2 (01:33→04:58)
[2017-10-01] MEDS: ENALAPRILAT 1.25 MG/ML VIAL IV PUSH PRN (03:34)
[2017-10-01 04:00] VITALS: BP 177/95; PULSE 76; RESP 19; TEMP 99; O2SAT 94
[2017-10-01] MEDS: CLINDAMYCIN 150 MG CAP PO SCH ×2 (05:04→13:00)
[2017-10-01] MEDS: OXYBUTYNIN CHLORIDE 5 MG TAB PO SCH ×2 (05:04→12:59)
[2017-10-01] MEDS: guaiFENesin/CODEINE SYRUP 200 MG/20 MG/10 ML CUP PO PRN (07:36)
[2017-10-01] MEDS: ACETAMINOPHEN/HYDROcodone 325 MG/5 MG TAB PO PRN ×2 (07:37→13:00)
[2017-10-01] MEDS: RESP: ALBUTEROL 2.5 MG/IPRATROPIUM 0.5 MG NEB (SCH) NEB ×2 (07:38→12:45)
[2017-10-01 07:42] VITALS: O2SAT 97
[2017-10-01 07:58] VITALS: BP 175/76; PULSE 73; RESP 20; TEMP 97.8; O2SAT 94
--- NOTE | 2017-10-01 08:54 | HHI.PR ---
Subjective Remarks alert no SOB at rest less cough Objective Vital Signs Date Time Temp Pulse Resp B/P (MAP) Pulse Ox O2 Delivery O2 Flow Rate FiO2 10/01/17 07:58 97.8 73 20 175/76 (109) 94 10/01/17 07:42 97 Nasal Cannula 2.00 10/01/17 04:00 99.0 76 19 177/95 (122) 94 10/01/17 02:52 95 Nasal Cannula 2.00 10/01/17 02:33 20 10/01/17 00:00 98.1 71 20 144/79 (100) 94 09/30/17 22:55 22 09/30/17 20:00 98.2 85 22 155/83 (107) 96 09/30/17 20:00 96 Nasal Cannula 2.00 28 09/30/17 19:35 98 Nasal Cannula 2.00 09/30/17 17:06 98.2 77 18 159/73 (101) 98 09/30/17 12:47 98.3 80 18 197/105 (135) 96 09/30/17 10:19 Nasal Cannula 2.00 09/30/17 10:05 98 Nasal Cannula 2.00 I/O 09/30/17 09/30/17 09/30/17 10/01/17 10/01/17 10/01/17 07:00 15:00 23:00 07:00 15:00 23:00 Intake Total 600 ml 900 ml 600 ml Output Total 800 ml Balance 600 ml 100 ml 600 ml Intake Oral 600 ml 900 ml 600 ml Output Urine Total 800 ml # Voids 3 Result Diagram: 09/30/17 0546 09/30/17 0546 Objective Remarks GENERAL: SKIN: Warm and dry. HEAD: Atraumatic. Normocephalic. EYES: Pupils equal and round. No scleral icterus. No injection or drainage. ENT: No nasal bleeding or discharge. Mucous membranes pink and moist. NECK: Trachea midline. No JVD. CARDIOVASCULAR: Regular rate and rhythm. RESPIRATORY: No accessory muscle use. Clear to auscultation. Breath sounds equal bilaterally. GASTROINTESTINAL: Abdomen soft, non-tender, nondistended. Hepatic and splenic margins not palpable. MUSCULOSKELETAL: Extremities without clubbing, cyanosis, or edema. No obvious deformities. NEUROLOGICAL: Awake and alert. No obvious cranial nerve deficits. Motor grossly within normal limits. Five out of 5 muscle strength in the arms and legs. Normal speech. PSYCHIATRIC: Appropriate mood and affect; insight and judgment normal. Assessment and Plan Assessment and Plan CAVITARY MASS right UL COPD PLAN check BRONCHOSCOPY rsults continue antibx Daly Kauffman MD Oct 01, 2017 08:54
[2017-10-01] MEDS: MELOXICAM 7.5 MG TAB PO SCH (09:00)
[2017-10-01] MEDS: BUDESONIDE-FORMOTEROL 160/4.5 MCG INHALER INH SCH (09:00)
[2017-10-01] MEDS: SODIUM CHLORIDE 0.9% FLUSH 10 ML FLUSH IV FLUSH SCH (09:00)
[2017-10-01] MEDS ORDERED: CLIN150 PO (09:32)
[2017-10-01] MEDS ORDERED: GETGO ROLLING W1 MI1 (09:32)
[2017-10-01] MEDS: metFORMIN HCL 500 MG TAB PO SCH (09:35)
[2017-10-01] MEDS: guaiFENesin E.R. 600 MG TAB PO SCH (09:35)
[2017-10-01] MEDS: DOCUSATE SODIUM 50 MG/SENNA 8.6 MG TAB PO SCH (09:35)
[2017-10-01] MEDS: LORATADINE 10 MG TAB PO SCH (09:36)
[2017-10-01] MEDS: NYSTATIN SUSP 500,000 U/5 ML CUP SWISH-SWAL SCH ×2 (09:36→12:59)
[2017-10-01] MEDS: METOPROLOL TARTRATE 50 MG TAB PO SCH (09:36)
[2017-10-01] MEDS: LACTOBACILLUS ACIDOPHILUS TAB PO SCH ×2 (09:36→11:02)
[2017-10-01] MEDS: INSULIN ASPART SUPPLEMENTAL SCALE SQ SCH ×2 (09:36→11:45)
[2017-10-01] MEDS: HYDROCHLOROTHIAZIDE 25 MG TAB PO SCH (09:36)
[2017-10-01] MEDS: predniSONE 20 MG TAB PO SCH (09:36)
[2017-10-01] MEDS: LIDOCAINE HCL 5% PATCH T-DERMAL SCH (09:37)
--- NOTE | 2017-10-01 09:49 | HHI.DS ---
Discharge Summary Admission Date Sep 23, 2017 at 22:57 Discharge Date: Oct 01, 2017 Admitting Diagnosis Right upper lobe cavitary mass, pneumonia (1) Sepsis ICD Code: A41.9 - Sepsis, unspecified organism (2) Cavitary lesion of lung ICD Code: J98.4 - Other disorders of lung Status: Acute (3) COPD exacerbation ICD Code: J44.1 - Chronic obstructive pulmonary disease with (acute) exacerbation Status: Acute (4) Mass of upper lobe of right lung ICD Code: R91.8 - Other nonspecific abnormal finding of lung field Procedures Bronchoscopy 4-3 Brief History - From Admission 62-year-old female with known history of chronic obstructive pulmonary disease, chronic pain who was recently admitted to the hospital for right upper lobe pneumonia on 09/19/17. Patient underwent treatment with antibiotics, nebulizer and she was improving, the next day the patient was very eager to be discharged and hospitalist facilitated with outpatient discharge with arranging nebulizer, outpatient antibiotics, wheelchair with outpatient follow-up with her primary medical doctor. However patient states that she did not get the majority of the DME equipment especially the wheelchair so she had to exert herself more. She continued to have shortness of breath, dyspnea, as indicated that she had fever at home and she was not improving so she returned to the ER for evaluation. Patient had workup done which did indicate a cavitary lesion in the right upper lung, no signs of any hypoxia. Patient does have signs of sepsis with leukocytosis, febrile illness, tachycardia, right upper lung cavitary lesion. Patient was admitted to the hospital for further evaluation and management. Office Admin was consulted for further recommendations. Upon seeing the patient's morning she does have significant laryngitis and difficulty understanding her speech. However she did convey that she did not receive her wheelchair and had difficulty with ambulating with increased shortness of breath and dyspnea. She states that she has had copious amounts of phlegm. Denies any chest pain, abdominal pain, nausea, vomiting, any appetite changes or weight loss. CBC/BMP: 09/30/17 0546 09/30/17 0546 Significant Findings Laboratory Tests Test 09/30/17 05:46 Hemoglobin 11.3 GM/DL (11.6-15.3) Hematocrit 33.3 % (35.0-46.0) Neutrophils (%) (Auto) 80.0 % (16.0-70.0) Neutrophils % (Manual) 77 % (16-70) Myelocytes 1 % (0-0) Random Glucose 253 MG/DL (74-106) Albumin 2.5 GM/DL (3.4-5.0) Hemoglobin A1c 7.5 % (4.3-6.0) Imaging Last Impressions Chest X-Ray 09/29/17 0600 Signed Impressions: Service Date/Time: Friday, September 29, 2017 03:27 - CONCLUSION: No significant change Oswaldo Anderson MD Chest CT 09/23/17 0000 Signed Impressions: Service Date/Time: August 21:23 - CONCLUSION: 6 cm cavitary mass in the right upper lobe with other surrounding areas of focal mass or consolidation in the right upper lobe. This distribution within one lobe is most suggestive of inflammatory/infectious process however, it is nonspecific and neoplastic change could have a similar appearance. Oswaldo Vilchis MD PE at Discharge GENERAL: Awake alert and oriented 3 talkative and cooperative has some cough and congestion obese female SKIN: Warm and dry. HEAD: Atraumatic. Normocephalic. EYES: Pupils equal and round. No scleral icterus. No injection or drainage. Extraocular muscles intact ENT: No nasal bleeding or discharge. Mucous membranes pink and moist. Tongue is midline NECK: Trachea midline. No JVD. Supple CARDIOVASCULAR: Regular rate and rhythm. S1-S2 no S3-S4 RESPIRATORY: No accessory muscle use. Clear to auscultation. Breath sounds equal bilaterally. Some scattered rhonchi's and decreased breath sounds on the right GASTROINTESTINAL: Abdomen soft, non-tender, nondistended. Hepatic and splenic margins not palpable. MUSCULOSKELETAL: Extremities without clubbing, cyanosis, or edema. No obvious deformities. NEUROLOGICAL: Awake and alert. No obvious cranial nerve deficits. Motor grossly within normal limits.4 out of 5 muscle strength in the arms and legs. Normal speech. PSYCHIATRIC: Appropriate mood and affect; insight and judgment normal. Pt update on day of discharge Feels better. No wheezing. No much cough. Feels comfortable to go home. No fever or chills overnight. Hospital Course Sepsis secondary to pneumonia, resolving Patient meets criteria with febrile illness, leukocytosis, tachycardia, right upper lung pneumonia with cavitary lesion Influenza testing, streptococcal pneumonia testing, Legionella testing all were negative, S/P bronchoscopy on 09/[address] Snow which showed Severe tracheobronchitis mainly on the right tracheobronchial tree. No obstruction, no mass lesion. Samples obtained as above. Bronchial washing studies pending. sputum culture from 09/24 grew MRSA. Sensitivity profile noted. Patient transitioned to Clindamycin. Add Lactinex NO CANCER SEEN ON CYTOLOGY Right upper lung cavitary lesion/pneumonia/COPD exacerbation Pneumonia resolving. Continue O2 supplementation to maintain O2 sats greater than 92% Continue Symbicort Continue nebulizer treatment Acapella. Repeat CXR in AM. Mucinex and incentive spirometry PATHOLOGY SHOWS NO CANCER AT THIS TIME Hyperglycemia, No history of diabetes, but she has not followed with a PCP. Suspect undiagnosed DM. Hemoglobin A1c 7.4 Accu-Cheks with sliding scale insulin Diabetic diet. Patient counseled. Diabetic/dietary consultation Consider discharge on Metformin. Start p.o. metformin Insomnia Ambien DVT prevention Sequential compression devices The patient improved significantly. She is cleared by pulmonology Dr. Lazo for discharge. Discussed with Dr. Darling pulmonology and he will follow-up as outpatient with the patient and he will order a repeat CT the lung as outpatient in 1 month. Discussed also with the patient. Patient improved significantly and she wants to go home. Walking test for oxygen reviewed and she passed a walking oxygen test. Patient does not need oxygen at home. Discharge home in stable condition to follow-up with PCP and consultants as outpatient. Pt Condition on Discharge: Stable Discharge Disposition: Disch w/ Home Health Serv Discharge Time: > 30 minutes Discharge Instructions DIET: Follow Instructions for: Heart Healthy Diet Activities you can perform: Regular-No Restrictions Follow up Referrals: Diabetic Education - 2-3 Days PCP Follow-up - 2-3 Days PCP Follow-up Pulmonology - 2 Weeks Pulmonology New Medications: Blood Glucose Monitoring W/Device (Glucocom Blood Glucose Mo W/Device) 1 Kit Kit KIT .XX DIRECTED for Blood Sugar Management, #1 Glucocom Test Strips (Glucocom Test Strips) 1 Melia Melia EA .XX DIRECTED for Blood Sugar Management, #1 Insulin Syringe/U-100/31G X 5/16" 1 ml (Insulin Syringe/U-100/31G X 11/10" 1 ml) 31 Gauge X 11/10" Mis EA .XX DIRECTED for Blood Sugar Management, #1 0 Refills Lancets (Lancets) 1 Mis Mis EA .XX DIRECTED for Blood Sugar Management, #1 0 Refills Metformin (Metformin) 500 Mg Tab 500 MG PO BIDPC for Blood Sugar Management, #60 TAB 0 Refills Nebulizer (Nebulizer) 1 Mis Mis EA .XX DIRECTED for Breathing Treatment, #1 0 Refills Parenteral Therapy Supplies (Sharpsafety Sharps Contai) 1 Mis Mis EA .XX DIRECTED, #1 0 Refills Walker Rolling/GetGo (Walker Rolling/GetGo) 1 Mis Mis EA .XX DIRECTED, #1 Clindamycin (Cleocin) 150 Mg Cap 600 MG PO Q8HR for infection, #30 CAP Continued Medications: Acetaminophen (Tylenol) 325 Mg Tab 650 MG PO Q6H PRN for FEVER, TAB 0 Refills Albuterol 8.5 GM Inh (Proair Hfa 8.5 GM Inh) 90 Mcg/Act Aer 2 PUFF INH Q4-6H PRN for SHORTNESS OF BREATH, #1 INHALER 0 Refills 108 mcg/actuation Albuterol Neb (Albuterol Neb) 0.63 Mg/3 Ml Neb 0.63 MG NEB Q4HR NEB PRN for SHORTNESS OF BREATH, #25 NEBULE 0 Refills Fluticasone-Salmeterol Inh (Advair Diskus Inh) 500-50 Mcg/Blist Aer 1 PUFF INH BID, #1 INHALER 0 Refills Rinse mouth after use. Hydrochlorothiazide (Hydrochlorothiazide) 25 Mg Tab 25 MG PO DAILY, #30 TAB 0 Refills Hydrocodone/Acetaminophen (Hydrocodone-Acetamin 10-325 mg) 10 Mg-325 Mg Tablet Q6HR Lactobacillus Acidophilus (Lactobacillus Acidophilus) 1 Billion Cell Tab 1 TAB PO TIDAC for Nutritional Supplement, #30 TAB 0 Refills Lidocaine Patch 12 HR (Lidocaine Patch 12 HR) 5 % Patch 1 PATCH TOPICAL DAILY for Pain Management, #1 BOX 0 Refills Remove patch after 12 hours Loratadine (Claritin) 10 Mg Cap 10 MG PO DAILY for Allergy Management, CAP 0 Refills Meloxicam (Meloxicam) 7.5 Mg Tab 7.5 MG PO DAILY for Arthritis Pain, TAB 0 Refills Metoprolol Tartrate (Metoprolol Tartrate) 50 Mg Tab 50 MG PO BID, #60 TAB 0 Refills Oxybutynin (Ditropan) 5 Mg Tab 5 MG PO Q6HR for Urinary Symptom Managemen, #60 TAB 0 Refills Prednisone (Prednisone) 10 Mg Tab 10 MG PO DIRECTED for Inflammation, #14 TAB 0 Refills 2 TABS BY MOUTH DAILY, DAY 1 TO 4 1 TAB BY MOUTH DAILY, DAY 5 TO 8 1/2 TAB BY MOUTH DAILY, DAY 9-12 THEN STOP Wheelchair (Wheelchair) 1 Mis Mis EA .XX DIRECTED for weakness, #1 0 Refills Discontinued Medications: Amoxicillin-Clavulanate (Augmentin) 875-125 Mg Tab 1 TAB PO BID for Infection, #14 TAB 0 Refills Azithromycin (Azithromycin) 500 Mg Tab 500 MG PO DAILY for Infection, #3 TAB 0 Refills Haydee Sky MD Oct 01, 2017 09:49
--- NOTE | 2017-10-01 09:49 | HHI.FF ---
Face to Face Verification Diagnosis: (1) Right upper lobe pneumonia (2) Sepsis (3) COPD exacerbation (4) Cavitary lesion of lung (5) Mass of upper lobe of right lung Physical Therapy Order: Evaluate and Treat Home Health Nursing Order: Medical education Signs/symptoms of disease process Medication education-adverse effect Nursing assessment with vital signs I have seen patient Gayle Gao on 10/01/17. My clinical findings support the need for the requested home health care services because: Ltd mobility - disease progression Patient has SOB I certify that my clinical findings support that this patient is homebound because: Post-op weakness Haydee Sky MD Oct 01, 2017 09:49
--- NOTE | 2017-10-01 11:09 | HHI.FF ---
Face to Face Verification Diagnosis: (1) Mass of upper lobe of right lung (2) Cavitary lesion of lung (3) Right upper lobe pneumonia (4) COPD exacerbation (5) Acute hypoxemic respiratory failure (6) Weakness Home Health Nursing Order: Medical education Signs/symptoms of disease process Medication education-adverse effect Nursing assessment with vital signs I have seen patient Gayle Gao on 10/01/17. My clinical findings support the need for the requested home health care services because: Ltd mobility - disease progression Patient has SOB I certify that my clinical findings support that this patient is homebound because: Post-op weakness Hx COPD- exertion dyspnea/weakness Haydee Syk MD Oct 01, 2017 11:09
[2017-10-01] MEDS ORDERED: INSU1MIS15 (14:09)
[2017-10-01] MEDS ORDERED: LANCETS1 MI1 (14:09)
[2017-10-01] MEDS ORDERED: BIOM30MI (14:09)
[2017-10-01] MEDS ORDERED: METF500T PO (14:09)
[2017-10-01] MEDS ORDERED: GLUCTES12 (14:09)
[2017-10-01] MEDS ORDERED: GLUCKIT15 (14:09)
== END 2017-10-01 14:48 | disposition home health service (06) | DRG 871 ==
LOC: PHED 18:30 → UNDOADMIN 22:56 → PHEDA 22:56 → PH3A 23:56 → HCIS 09-25 13:51 → HCIN 09-26 00:13 → N05A 10-01 02:48
PROVIDERS: ADMIT Hospitalist; ATTEND Hospitalist
PROC: 0BDB8ZX Extraction of Left Lower Lobe Bronchus, Via Natural or Artificial Opening Endoscopic, Diagnostic (ICD-10-PCS; principal; 2017-09-28)
PROC: 0BDC8ZX Extraction of Right Upper Lung Lobe, Via Natural or Artificial Opening Endoscopic, Diagnostic (ICD-10-PCS; 2017-09-28)
PROC: 0BD48ZX Extraction of Right Upper Lobe Bronchus, Via Natural or Artificial Opening Endoscopic, Diagnostic (ICD-10-PCS; 2017-09-28)
PROC: 0BD88ZX Extraction of Left Upper Lobe Bronchus, Via Natural or Artificial Opening Endoscopic, Diagnostic (ICD-10-PCS; 2017-09-28)
PROC: 0BD38ZX Extraction of Right Main Bronchus, Via Natural or Artificial Opening Endoscopic, Diagnostic (ICD-10-PCS; 2017-09-28)
PROC: 0BD78ZX Extraction of Left Main Bronchus, Via Natural or Artificial Opening Endoscopic, Diagnostic (ICD-10-PCS; 2017-09-28)
PROC: 0BD68ZX Extraction of Right Lower Lobe Bronchus, Via Natural or Artificial Opening Endoscopic, Diagnostic (ICD-10-PCS; 2017-09-28)
DX: A41.9 Sepsis, unspecified organism (principal); J18.9 Pneumonia, unspecified organism; J44.0 Chronic obstructive pulmonary disease with (acute) lower respiratory infection; J44.1 Chronic obstructive pulmonary disease with (acute) exacerbation; R91.1 Solitary pulmonary nodule; J40 Bronchitis, not specified as acute or chronic; I10 Essential (primary) hypertension; G89.29 Other chronic pain; E11.65 Type 2 diabetes mellitus with hyperglycemia; G47.00 Insomnia, unspecified; E87.6 Hypokalemia; Z83.3 Family history of diabetes mellitus; Z82.49 Family history of ischemic heart disease and other diseases of the circulatory system; Z85.41 Personal history of malignant neoplasm of cervix uteri; Z99.3 Dependence on wheelchair; Z87.891 Personal history of nicotine dependence
CPT/HCPCS: 31625; 36600; 71045; 71046; 71260; 80048; 80053; 80202; 81001; 82565; 82805; 82948; 83036; 83735; 83880; 84100; 84439; 84443; 84484; 85007; 85025; 85027; 85610; 85730; 86403; 87015; 87040; 87070; 87102; 87116; 87147; 87186; 87205; 87206; 87449; 87804; 88112; 88305; 93005; 94150; 94618; 94640; 94664; 94667; 94668; 99285; J0692; J1815; J2270; J2543; J3370; J3480; J7030; J7040; J7512; J7613; Q9967